=== PATIENT | female | born 1940 | race Caucasian/White ===

== ENCOUNTER 2018-07-22 20:26 | Inpatient (IN) | payer OTHER, MEDICAID ==
[~2018-07-22] VITALS: Ht 157.5 cm; Wt 80.0 kg
[~2018-07-22 20:26] MED LIST: GABA100C14 PO; LISI10TA2 PO; Lidocaine TD; MECL12.5 PO; SIMV40TA3 PO
--- NOTE | 2018-07-22 22:45 | ERD ---
ER Documentation Chief Complaint Chief Complaint RUQ abd pain - hx of gallbladder stones started this afternoon HPI 77-year-old female presenting with right upper quadrant abdominal pain that started last night. Initially it was intermittent, however about 4 hours ago became constant. Associated with nonbloody nonbilious vomiting. The pain is severe, 8 out of 10, radiating to her back. No alleviating or exacerbating factors. She was recently admitted to an outside hospital less than 1 week ago and diagnosed with choledocholithiasis. However by the time they did the MRCP, the stones seem to have passed. She was given an outpatient referral for surgery. Her plan was to see outpatient surgery, but since her pain started again last night, she returns to the ER for evaluation. ROS All systems reviewed and are negative except as per history of present illness. Medications Home Meds Active Scripts Gabapentin* (Gabapentin*) 100 Mg Capsule, 100 MG PO TID, #90 CAP 0 Refills Prov:AUBRIE VALDERRAMA MD 10/26/14 Meclizine Hcl* (Meclizine Hcl*) 12.5 Mg Tab, 12.5 MG PO TID PRN for dizziness, #30 1 Refill Prov:AUBRIE VALDERRAMA MD 10/26/14 [Lidocaine] 1 PATCH PATCH No Conflict Check, 1 PATCH TD DAILY, #30 PATCH 1 Refill Prov:AUBRIE VALDERRAMA MD 10/26/14 Reported Medications Simvastatin (Simvastatin) 40 Mg Tablet, 40 MG PO HS, TAB 10/25/14 Lisinopril* (Lisinopril*) 10 Mg Tablet, 10 MG PO DAILY, TAB 10/25/14 Allergies Allergies: Coded Allergies: No Known Allergy (Unverified , 02/18/12) PMhx/Soc History of Surgery: Yes (Left knee) Anesthesia Reaction: No Hx Neurological Disorder: No Hx Respiratory Disorders: No Hx Cardiac Disorders: Yes (htn) Hx Psychiatric Problems: No Hx Miscellaneous Medical Probl: Yes (HTN, hyperlipid, gallstones) Hx Alcohol Use: No Hx Substance Use: No Hx Tobacco Use: No FmHx Family History: No diabetes Physical Exam Vitals Vital Signs Date Temp Pulse Resp B/P (MAP) Pulse Ox O2 O2 Flow FiO2 Time Delivery Rate 07/22/18 97.8 102 16 115/43 97 Room Air 22:00 (67) 07/22/18 97.8 75 20 160/96 99 20:45 (117) Physical Exam Const: In mild distress due to pain, nontoxic Head: Atraumatic Eyes: Normal Conjunctiva ENT: Normal External Ears, Nose and Mouth. Neck: Full range of motion. No meningismus. Resp: Clear to auscultation bilaterally Cardio: Regular rate and rhythm, no murmurs Abd: Soft, epigastric and right upper quadrant tenderness with guarding, positive Rubio sign. Non distended. Normal bowel sounds Skin: No petechiae or rashes Back: No midline or flank tenderness Ext: No cyanosis, or edema Neur: Awake and alert Psych: Normal Mood and Affect Result Diagram: 07/22/185 07/22/182314 Results 24 hrs Laboratory Tests Test 07/22/18 23:15 White Blood Count 18.1 10^3/ul Red Blood Count 4.40 10^6/ul Hemoglobin 12.5 g/dl Hematocrit 37.9 % Mean Corpuscular Volume 86.1 fl Mean Corpuscular Hemoglobin 28.4 pg Mean Corpuscular Hemoglobin Concent 33.0 g/dl Red Cell Distribution Width 14.2 % Platelet Count 265 10^3/UL Mean Platelet Volume 10.5 fl Immature Granulocytes % 0.400 % Neutrophils % 93.6 % Lymphocytes % 3.9 % Monocytes % 1.6 % Eosinophils % 0.2 % Basophils % 0.3 % Nucleated Red Blood Cells % 0.0 /100WBC Immature Granulocytes # 0.080 10^3/ul Neutrophils # 17.0 10^3/ul Lymphocytes # 0.7 10^3/ul Monocytes # 0.3 10^3/ul Eosinophils # 0.0 10^3/ul Basophils # 0.1 10^3/ul Nucleated Red Blood Cells # 0.0 10^3/ul Sodium Level 133 mmol/L Potassium Level 3.8 mmol/L Chloride Level 97 mmol/L Carbon Dioxide Level 25 mmol/L Anion Gap 11 Blood Urea Nitrogen 13 mg/dl Creatinine 0.65 mg/dl Est Glomerular Filtrat Rate mL/min mL/min Glucose Level 93 mg/dl Calcium Level 9.7 mg/dl Total Bilirubin 0.6 mg/dl Direct Bilirubin 0.10 mg/dl Indirect Bilirubin 0.5 mg/dl Aspartate Amino Transf (AST/SGOT) 79 IU/L Alanine Aminotransferase (ALT/SGPT) 69 IU/L Alkaline Phosphatase 203 IU/L Total Protein 7.9 g/dl Albumin 4.3 g/dl Globulin 3.60 g/dl Albumin/Globulin Ratio 1.19 Lipase 90005 U/L Current Medications Medications Dose Sig/Juan Carlos Start Time Status Last (Trade) Ordered Route PRN Stop Time Admin Dose Reason Admin Fentanyl 50 mcg ONCE ONCE 07/22/18 DC 07/22/18 (Sublimaze) IV 23:00 23:39 07/22/18 23:01 Ondansetron 4 mg ONCE STAT 07/22/18 DC 07/22/18 HCl (Zofran IV 22:46 23:38 Inj) 07/22/18 22:47 Piperacillin 100 ml @ ONCE ONCE 07/23/18 DC Sod/ 200 mls/hr IVPB 00:30 Tazobactam 07/23/18 00:59 Sod Ondansetron 4 mg BRIDGE ORDER 07/23/18 HCl (Zofran PRN IV 01:00 Inj) NAUSEA/VOMITI 07/24/18 00:59 NG 650 mg ER BRIDGE 07/23/18 Acetaminophen PRN PO 01:00 (Tylenol .MILD PAIN 07/24/18 00:59 Tab) 1-3 OR TEMP Procedures/MDM EMERGENT LABS AND DIAGNOSTIC STUDIES: Lab Results above were reviewed and interpreted by me. CBC: Leukocytosis concerning for infection CMP: Elevated alk phos. No evidence of clinically significant electrolyte abnormality, acidosis, renal failure Lipase: significantly elevated, consistent with pancreatitis 12-lead EKG was interpreted by Katherine Aguilar MD: Normal Sinus Rhythm Normal axis Normal intervals No acute ST or T wave changes suggestive of acute ischemia or STEMI. Radiology Results as interpreted by Radiology below were reviewed by SCal hernandez MD: US Gallbladder: IMPRESSION: 1. Hepatomegaly with moderate fatty infiltration. 2. Prominence of the extrahepatic common bile duct, which may be related to prior episodes of biliary colic. 3. Otherwise, normal sonographic findings of the abdomen. No evidence of gallstones or cholecystitis. .Devaughn Hall MD, Date Time Electronically viewed and signed by .Devaughn Hall MD, MD on 07/23/2018 00:52 Initial Nursing notes reviewed. Previous Medical Records requested via the Electronic Health Record. EMERGENCY DEPARTMENT COURSE / MEDICAL DECISION MAKING: Patient is presenting with severe epigastric pain as well as right upper quadra nt pain. Exam is concerning for possible cholecystitis versus pancreatitis. Given her history of choledocholithiasis, this also remains on the differential. Her labs are notable for severely elevated lipase, consistent with acute pancreatitis. Given her recent history of choledocholithiasis, I do believe the pancreatitis is likely secondary to gallstones however no gallstones were seen on the ultrasound done today. Given her elevated white blood cell count, she was treated with Zosyn. Cholangitis is also on the differential. However I doubt sepsis at this time. Patient will be admitted for further workup and management. Dr. Marcelo with general surgery was consulted and agreed to see the patient. Patient will be admitted to Dr. Galeas. Departure Diagnosis: Primary Impression: Pancreatitis Chronicity: acute Pancreatitis type: biliary Acute pancreatitis complication: unspecified Qualified Codes: K85.10 - Biliary acute pancreatitis without necrosis or infection Condition: Serious FAITH AGUILAR MD Jul 22, 2018 22:44
[2018-07-22] MEDS ORDERED: ONDANSETRON 4 MG INJ IV STA (22:46)
[2018-07-22] MEDS ORDERED: FENTAnyl 50 MCG/ML VIAL IV ONE (23:00)
[2018-07-23] MEDS ORDERED: PIPER-TAZO 3.375 GM IV (PMX) 100 ML IVPB ONE (00:30)
[2018-07-23] MEDS ORDERED: ACETAMINOPHEN 325 MG TAB PO PRN (01:00)
[2018-07-23] MEDS ORDERED: ONDANSETRON 4 MG INJ IV PRN ×2 (01:00→02:30)
[2018-07-23] MEDS ORDERED: NACL 0.9% 3 ML SYG IV SCH (02:30)
[2018-07-23] MEDS ORDERED: TRAM50TA PO (02:53)
[2018-07-23] MEDS ORDERED: MAGN400T27 PO (02:53)
[2018-07-23] MEDS ORDERED: SENN-120 PO (02:54)
[2018-07-23] MEDS ORDERED: ONDA4TAB14 PO (02:55)
[2018-07-23] MEDS ORDERED: NAPR125O4 PO (02:56)
[2018-07-23 03:13] VITALS: BP 105/54; PULSE 94; RESP 0
[2018-07-23 03:20] VITALS: Ht 157.5 cm; Wt 80.0 kg
[2018-07-23] MEDS: DEXTROSE 5%-0.45% NACL 1,000 ML IV SCH ×3 (03:53→20:25)
[2018-07-23 08:15] VITALS: BP 91/50; PULSE 89; RESP 17
--- NOTE | 2018-07-23 08:30 | CONS ---
Assessment/Plan Assessment/Plan Assessment/Plan (Daily) Pancreatitis. No evidence of gallstones. MRCP is pending. Further recommendations will be forthcoming and based on the patient's further workup and clinical course. Consultation Date/Type/Reason Admit Date/Time Jul 23, 2018 at 00:37 Date of Consultation: Jul 23, 2018 Type of Consult General surgery Reason for Consultation Biliary pancreatitis Date/Time of Note DATE: 07/23/18 TIME: 08:25 Hx of Present Illness The patient is a 77-year-old female who presented to the emergency room yesterday with epigastric abdominal pain. She was found to have cryptitis with a lipase of 20,154. An abdominal ultrasound showed no gallstones. Of note is the fact that the patient was recently hospitalized at another facility for what was thought to be choledocholithiasis. Apparently an MRCP was performed at that time and was negative. She was discharged uneventfully but returns now with pancreatitis and presumed Hernandez pancreatitis. She has had no fevers chills or jaundice her white blood cell count on admission was 18,100. Alkaline phosphatase is 203 ALT is 114 and AST is 194. Bilirubin is normal Constitutional: no complaints Eyes: no complaints ENT: no complaints Respiratory: no complaints Cardiovascular: no complaints Gastrointestinal: other (As in the HPI) Genitourinary: no complaints Musculoskeletal: no complaints Skin: no complaints Neurologic: no complaints Lymphatic: no complaints Past Medical History Medical History: other (Question of gallstones) Home Meds Reported Medications Naproxen* (Naproxen*) 125 Mg/5 Ml Oral.susp, 500 MG PO BID, ML 07/23/18 Ondansetron (Ondansetron Odt) 4 Mg Tab.rapdis, 4 MG PO Q6H PRN for NAUSEA AND/OR VOMITING, TAB 07/23/18 Sennosides* (Senna Lax*) 8.6 Mg Tablet, 1 TAB PO BID, TAB 07/23/18 Tramadol Hcl* (Ultram*) 50 Mg Tablet, 50 MG PO Q6H PRN for PAIN, TAB 07/23/18 Magnesium Oxide* (Mag-Oxide*) 400 Mg Tablet, 400 MG PO QWED AND FRIDAY, TAB 07/23/18 Simvastatin (Simvastatin) 40 Mg Tablet, 40 MG PO HS, TAB 10/25/14 Lisinopril* (Lisinopril*) 10 Mg Tablet, 10 MG PO BID, TAB 10/25/14 Discontinued Scripts Gabapentin* (Gabapentin*) 100 Mg Capsule, 100 MG PO TID, #90 CAP 0 Refills Prov:AUBRIE VALDERRAMA MD 10/26/14 Meclizine Hcl* (Meclizine Hcl*) 12.5 Mg Tab, 12.5 MG PO TID PRN for dizziness, #30 1 Refill Prov:AUBRIE VALDERRAMA MD 10/26/14 [Lidocaine] 1 PATCH PATCH No Conflict Check, 1 PATCH TD DAILY, #30 PATCH 1 Re fill Prov:AUBRIE VALDERRAMA MD 10/26/14 Medications Current Medications Ondansetron HCl (Zofran Inj) 4 mg BRIDGE ORDER PRN IV NAUSEA/VOMITING; Start 07/23/18 at 01:00; Stop 07/24/18 at 00:59 Acetaminophen (Tylenol Tab) 650 mg ER BRIDGE PRN PO .MILD PAIN 1-3 OR TEMP Last administered on 07/23/18at 02:57; Admin Dose 650 MG; Start 07/23/18 at 01:00; Stop 07/24/18 at 00:59 Dextrose/Sodium Chloride 1,000 ml @ 80 mls/hr [id number] IV Last administered on 07/23/18at 03:53; Admin Dose 80 MLS/HR; Start 07/23/18 at 02:08 IV Flush (NS 3 ml) 3 ml PER PROTOCOL IV ; Start 07/23/18 at 02:30 Ondansetron HCl (Zofran Inj) 4 mg Q6H PRN IV NAUSEA/VOMITING; Start 07/23/18 at 02:30 Morphine Sulfate (morphine) 2 mg Q4H PRN IV .SEVERE PAIN 7-10; Start 07/23/18 at 02:30 Allergies: Coded Allergies: No Known Allergy (Unverified , 02/18/12) Past Surgical History Past Surgical Hx: no surgical history Family History Significant Family History: no pertinent family hx Social History Smoking Status: Never smoker Exam/Review of Systems Exam Vitals Vital Signs Date Temp Pulse Resp B/P (MAP) Pulse Ox O2 O2 Flow FiO2 Time Delivery Rate 07/23/18 98.8 89 17 91/50 (64) 98 08:15 07/23/18 Room Air 03:13 Intake and Output 07/22/18 07/22/18 07/23/18 1515:00 23:00 07:00 IntakeIntake Total 120 ml BalanceBalance 120 ml Constitutional: alert, oriented Psych: no complaints Head: normocephalic Eyes: nl conjunctiva ENMT: nl external ears & nose Neck: supple Respiratory: clear to auscultation Cardiovascular: regular rate and rhythm Gastrointestinal: tender (Slight tenderness in epigastrium without guarding or rebound) Extremities: normal pulses Neurological: STAFF ACCOUNTANT II-XII intact Skin: nl turgor Results Result Diagram: 07/23/18 0539 07/23/18 0539 Results 24hrs Laboratory Tests Test 07/22/18 23:15 07/23/18 05:39 White Blood Count 18.1 #H 19.5 H Red Blood Count 4.40 4.06 L Hemoglobin 12.5 11.5 L Hematocrit 37.9 34.3 L Mean Corpuscular Volume 86.1 84.5 Mean Corpuscular Hemoglobin 28.4 L 28.3 L Mean Corpuscular Hemoglobin Concent 33.0 33.5 Red Cell Distribution Width 14.2 14.5 Platelet Count 265 249 Mean Platelet Volume 10.5 H 11.1 H Immature Granulocytes % 0.400 0.500 H Neutrophils % 93.6 H Lymphocytes % 3.9 L Monocytes % 1.6 Eosinophils % 0.2 Basophils % 0.3 Nucleated Red Blood Cells % 0.0 0.0 Immature Granulocytes # 0.080 H 0.090 H Neutrophils # 17.0 H Lymphocytes # 0.7 L Monocytes # 0.3 Eosinophils # 0.0 Basophils # 0.1 Nucleated Red Blood Cells # 0.0 Sodium Level 133 L 132 L Potassium Level 3.8 3.9 Chloride Level 97 97 Carbon Dioxide Level 25 23 Anion Gap 11 12 Blood Urea Nitrogen 13 18 Creatinine 0.65 1.17 H Est Glomerular Filtrat Rate mL/min Glucose Level 93 126 Calcium Level 9.7 8.8 Total Bilirubin 0.6 1.3 Direct Bilirubin 0.10 0.70 #H Indirect Bilirubin 0.5 0.6 Aspartate Amino Transf (AST/SGOT) 79 H 194 H Alanine Aminotransferase (ALT/SGPT) 69 114 H Alkaline Phosphatase 203 H 175 H Total Protein 7.9 6.3 # Albumin 4.3 3.4 Globulin 3.60 H 2.90 Albumin/Globulin Ratio 1.19 1.17 Lipase 01453 H Segmented Neutrophils % (Manual) 80 H Band Neutrophils % (Manual) 13 H Lymphocytes % (Manual) 2 L Reactive Lymphocytes % (Manual) 1 H Monocytes % (Manual) 4 Neutrophils # (Manual) 16.1 H Band Neutrophils # 2.5 H Lymphocytes (Manual) 0.3 L Reactive Lymphocytes # 0.1 H Monocytes # (Manual) 0.7 Platelet Estimate NORMAL Anisocytosis 1+ Microcytosis 1+ Phosphorus Level 3.1 Magnesium Level 1.6 L Triglycerides Level 70 Cholesterol Level 129 LDL Cholesterol, Calculated 68 HDL Cholesterol 47 Cholesterol/HDL Ratio 2.7 Medications Medication Current Medications Ondansetron HCl (Zofran Inj) 4 mg BRIDGE ORDER PRN IV NAUSEA/VOMITING; Start 07/23/18 at 01:00; Stop 07/24/18 at 00:59 Acetaminophen (Tylenol Tab) 650 mg ER BRIDGE PRN PO .MILD PAIN 1-3 OR TEMP Last administered on 07/23/18at 02:57; Admin Dose 650 MG; Start 07/23/18 at 01:00; Stop 07/24/18 at 00:59 Dextrose/Sodium Chloride 1,000 ml @ 80 mls/hr [id number] IV Last administered on 07/23/18at 03:53; Admin Dose 80 MLS/HR; Start 07/23/18 at 02:08 IV Flush (NS 3 ml) 3 ml PER PROTOCOL IV ; Start 07/23/18 at 02:30 Ondansetron HCl (Zofran Inj) 4 mg Q6H PRN IV NAUSEA/VOMITING; Start 07/23/18 at 02:30 Morphine Sulfate (morphine) 2 mg Q4H PRN IV .SEVERE PAIN 7-10; Start 07/23/18 at 02:30 ESTRELLA SEGOVIA MD Jul 23, 2018 08:30
--- NOTE | 2018-07-23 09:20 | HP ---
Date/Time of Note Date/Time of Note DATE: 07/23/18 TIME: 09:17 Assessment/Plan VTE Prophylaxis Risk score (from Ns)>0 risk: 3 SCD applied (from Ns): Yes SCD contraindicated: low risk/ambulating Pharmacological prophylaxis: NA/contraindicated Pharm contraindication: other (Awaiting surgical eval for possible cholecystitis) Lines/Catheters IV [facility] Peripheral IV Assessment/Plan Assessment/Plan 1. Pancreatitis: No gallstone shown on ultrasound -Keep n.p.o. with IV fluid -GI and surgical consult -Pain management -Check lipid panel 2. Hypertension: IV antihypertensives while n.p.o. 3. Dyslipidemia: Hold statin for now 4. History of thyroid nodule: Per 2015 and DC summary here, patient was supposed to follow-up as outpatient. On my questioning, she did not even know about thyroid nodule. -She can follow this up with her PCP Result Diagram: 07/23/18 0539 07/23/18 0539 Results 24hrs Laboratory Tests Test 07/22/18 23:15 07/23/18 05:39 White Blood Count 18.1 #H 19.5 H Red Blood Count 4.40 4.06 L Hemoglobin 12.5 11.5 L Hematocrit 37.9 34.3 L Mean Corpuscular Volume 86.1 84.5 Mean Corpuscular Hemoglobin 28.4 L 28.3 L Mean Corpuscular Hemoglobin Concent 33.0 33.5 Red Cell Distribution Width 14.2 14.5 Platelet Count 265 249 Mean Platelet Volume 10.5 H 11.1 H Immature Granulocytes % 0.400 0.500 H Neutrophils % 93.6 H Lymphocytes % 3.9 L Monocytes % 1.6 Eosinophils % 0.2 Basophils % 0.3 Nucleated Red Blood Cells % 0.0 0.0 Immature Granulocytes # 0.080 H 0.090 H Neutrophils # 17.0 H Lymphocytes # 0.7 L Monocytes # 0.3 Eosinophils # 0.0 Basophils # 0.1 Nucleated Red Blood Cells # 0.0 Sodium Level 133 L 132 L Potassium Level 3.8 3.9 Chloride Level 97 97 Carbon Dioxide Level 25 23 Anion Gap 11 12 Blood Urea Nitrogen 13 18 Creatinine 0.65 1.17 H Est Glomerular Filtrat Rate mL/min Glucose Level 93 126 Calcium Level 9.7 8.8 Total Bilirubin 0.6 1.3 Direct Bilirubin 0.10 0.70 #H Indirect Bilirubin 0.5 0.6 Aspartate Amino Transf (AST/SGOT) 79 H 194 H Alanine Aminotransferase (ALT/SGPT) 69 114 H Alkaline Phosphatase 203 H 175 H Total Protein 7.9 6.3 # Albumin 4.3 3.4 Globulin 3.60 H 2.90 Albumin/Globulin Ratio 1.19 1.17 Lipase 12857 H Segmented Neutrophils % (Manual) 80 H Band Neutrophils % (Manual) 13 H Lymphocytes % (Manual) 2 L Reactive Lymphocytes % (Manual) 1 H Monocytes % (Manual) 4 Neutrophils # (Manual) 16.1 H Band Neutrophils # 2.5 H Lymphocytes (Manual) 0.3 L Reactive Lymphocytes # 0.1 H Monocytes # (Manual) 0.7 Platelet Estimate NORMAL Anisocytosis 1+ Microcytosis 1+ Phosphorus Level 3.1 Magnesium Level 1.6 L Triglycerides Level 70 Cholesterol Level 129 LDL Cholesterol, Calculated 68 HDL Cholesterol 47 Cholesterol/HDL Ratio 2.7 HPI/ROS Admit Date/Time Admit Date/Time Jul 23, 2018 at 00:37 Hx of Present Illness This is a 77-year-old female with a history of hypertension, dyslipidemia, thyroid nodule who presents the ER complaining of abdominal pain. Pain is mainly localized in the right upper quadrant area and has been going on for the past several days. She stated she was admitted in the hospital in [place] and was discharged 3 days ago. She states she was told that she had gallstones but no surgery was offered at that time. She said she was told the stones would go away. Now she is coming back with a worsening abdominal pain. In the ER she was found to have significantly elevated lipase, around 20,000. Patient denied alcohol abuse. Right upper quadrant ultrasound shows the followin. Hepatomegaly with moderate fatty infiltration. 2. Prominence of the extrahepatic common bile duct, which may be related to prior episodes of biliary colic. 3. Otherwise, normal sonographic findings of the abdomen. No evidence of gallstones or cholecystitis. PMH/Family/Social Past Medical History Medical History: other (See HPI) Medications Current Medications Ondansetron HCl (Zofran Inj) 4 mg BRIDGE ORDER PRN IV NAUSEA/VOMITING; Start 07/23/18 at 01:00; Stop 07/24/18 at 00:59 Acetaminophen (Tylenol Tab) 650 mg ER BRIDGE PRN PO .MILD PAIN 1-3 OR TEMP Last administered on 07/23/18at 02:57; Admin Dose 650 MG; Start 07/23/18 at 01:00; Stop 07/24/18 at 00:59 Dextrose/Sodium Chloride 1,000 ml @ 80 mls/hr [id number] IV Last administered on 07/23/18at 03:53; Admin Dose 80 MLS/HR; Start 07/23/18 at 02:08 IV Flush (NS 3 ml) 3 ml PER PROTOCOL IV ; Start 07/23/18 at 02:30 Ondansetron HCl (Zofran Inj) 4 mg Q6H PRN IV NAUSEA/VOMITING; Start 07/23/18 at 02:30 Morphine Sulfate (morphine) 2 mg Q4H PRN IV .SEVERE PAIN 7-10; Start 07/23/18 at 02:30 Coded Allergies: codeine (Verified Allergy, Mild, 07/23/18) SOB, N/V Past Surgical History Past Surgical Hx: no surgical history Family History Significant Family History: no pertinent family hx Social History Alcohol Use: none Smoking Status: Never smoker Drug Use: none Exam/Review of Systems Vital Signs Vitals Vital Signs Date Temp Pulse Resp B/P (MAP) Pulse Ox O2 O2 Flow FiO2 Time Delivery Rate 07/23/18 98.8 89 17 91/50 (64) 98 08:15 07/23/18 Room Air 03:13 Intake and Output 07/22/18 07/22/18 07/23/18 1515:00 23:00 07:00 IntakeIntake Total 120 ml BalanceBalance 120 ml Exam Constitutional: alert, oriented, well developed Head: normocephalic, atraumatic Eyes: EOMI Respiratory: clear to auscultation, normal air movement Cardiovascular: regular rate and rhythm, nl pulses Gastrointestinal: soft, tender Extremities: normal pulses GRACIELA JOHNSON MD Jul 23, 2018 09:20
[2018-07-23] MEDS: ACETAMINOPHEN 325 MG TAB PO PRN ×2 (12:22→18:09)
--- NOTE | 2018-07-23 12:46 | QN ---
Documentation Comment Patient is still c/o abd pain, enroute to MRI Constitutional: alert, oriented, elderly, anxious Head: atraumatic, normocephalic Neck: non-tender, supple Respiratory: clear to auscultation Cardiovascular: regular rate and rhythm Gastrointestinal: S/ epigastric tenderness / ND / +BS assessment and plan: 37-year-old female who had presented to the emergency room with complaints of right upper quadrant abdominal pain currently admitted and managed as follows 1. acute pancreatitis, gallstone ? 2. Hypertension with tight control at this time 3. Sepsis secondary to #1, present on admission: Improved 4. Hypochromic anemia: Stable, chronic 5. Transaminitis suggestive of gallstone pancreatitis 6. Acute renal insufficiency., Rule out chronic kidney disease. 7. Mild hyponatremia 8. Fatty liver Plan Continue IV fluids, will increase the rate slightly Agree with MRCP, follow-up findings, if there is concern for choledocholithiasis, will need GI consultation, appreciate general surgery review No evidence of cholecystitis at this time, so we will hold off on antibiotics, continue to monitor labs Further interventions per clinical course, plan of care has been discussed with patient and her daughter CALVIN MAZA Jul 23, 2018 12:43
[2018-07-23 14:30] VITALS: BP 117/57; PULSE 73; RESP 17
[2018-07-23 20:00] VITALS: BP 102/55; PULSE 68; RESP 17
[2018-07-23] MEDS: DOCUSATE SODIUM 100 MG CAP PO SCH (21:13)
[2018-07-24] VITALS (7 sets, daily range): BP systolic 141–197; BP diastolic 65–93; PULSE 64–92; RESP 18–20
[2018-07-24] MEDS: ACETAMINOPHEN 325 MG TAB PO PRN ×3 (00:43→16:46)
[2018-07-24] MEDS: DEXTROSE 5%-0.45% NACL 1,000 ML IV SCH ×4 (00:43→23:38)
[2018-07-24] MEDS: PANTOPRAZOLE 40 MG INJ IV SCH (05:07)
[2018-07-24] MEDS: morphine 2 MG INJ IV PRN (07:59)
[2018-07-24] MEDS: DOCUSATE SODIUM 100 MG CAP PO SCH ×3 (08:02→20:29)
[2018-07-24] MEDS: ENOXAPARIN 40 MG/0.4 ML SYG SC SCH (09:05)
--- NOTE | 2018-07-24 09:18 | PN ---
Date/Time of Note Date/Time of Note DATE: 07/24/18 TIME: 09:13 Assessment/Plan VTE Prophylaxis Risk score (from Nsg)>0 risk: 4 SCD applied (from Nsg): Yes Pharmacological prophylaxis: LMWH Lines/Catheters IV Catheter Type (from Nrsg): Peripheral IV Assessment/Plan Hospital Course Patient is still c/o abd pain, Constitutional: alert, oriented, elderly, anxious Head: atraumatic, normocephalic Neck: non-tender, supple Respiratory: clear to auscultation Cardiovascular: regular rate and rhythm Gastrointestinal: S/ epigastric tenderness / ND / +BS assessment and plan: 37-year-old female who had presented to the emergency room with complaints of right upper quadrant abdominal pain currently admitted and managed as follows 1. acute pancreatitis, gallstone 2. Cholelithiasis with choledocholithiasis 3. Hypertension 4. Sepsis secondary to #1, present on admission: Improved 5. Hypochromic anemia: Stable, chronic 6. Transaminitis 2/2 gallstone pancreatitis 7 Acute renal insufficiency., Rule out chronic kidney disease. 8. Mild hyponatremia 9. Fatty liver Plan Continue IV fluids, NPO and pain meds GI consult for ERCP Continue supportive care Further interventions per clinical course, plan of care has been discussed with patient and her daughter Result Diagram: 07/24/18 0636 07/24/18 0636 Results 24hrs Laboratory Tests Test 07/24/18 06:36 White Blood Count 17.0 H Red Blood Count 3.72 L Hemoglobin 10.4 L Hematocrit 31.9 L Mean Corpuscular Volume 85.8 Mean Corpuscular Hemoglobin 28.0 L Mean Corpuscular Hemoglobin Concent 32.6 Red Cell Distribution Width 15.1 H Platelet Count 233 Mean Platelet Volume 11.2 H Immature Granulocytes % 0.400 Neutrophils % 80.9 H Lymphocytes % 13.2 L Monocytes % 4.2 Eosinophils % 1.1 Basophils % 0.2 Nucleated Red Blood Cells % 0.0 Immature Granulocytes # 0.070 H Neutrophils # 13.7 H Lymphocytes # 2.2 Monocytes # 0.7 Eosinophils # 0.2 Basophils # 0.0 Nucleated Red Blood Cells # 0.0 Sodium Level 128 L Potassium Level 4.1 Chloride Level 95 L Carbon Dioxide Level 25 Anion Gap 8 Blood Urea Nitrogen 28 H Creatinine 1.86 H Est Glomerular Filtrat Rate mL/min Glucose Level 118 Calcium Level 8.7 Phosphorus Level 3.9 Magnesium Level 1.7 Amylase Level 646 H Lipase 8227 H Exam/Review of Systems Exam Vitals Vital Signs Date Temp Pulse Resp B/P (MAP) Pulse Ox O2 O2 Flow FiO2 Time Delivery Rate 07/24/18 97.9 66 18 197/90 98 Room Air 08:02 (125) Intake and Output 07/23/18 07/23/18 07/24/18 1515:00 23:00 07:00 IntakeIntake Total 320 ml 710 ml 1900 ml BalanceBalance 320 ml 710 ml 1900 ml Results Results 24hrs Laboratory Tests Test 07/24/18 06:36 White Blood Count 17.0 H Red Blood Count 3.72 L Hemoglobin 10.4 L Hematocrit 31.9 L Mean Corpuscular Volume 85.8 Mean Corpuscular Hemoglobin 28.0 L Mean Corpuscular Hemoglobin Concent 32.6 Red Cell Distribution Width 15.1 H Platelet Count 233 Mean Platelet Volume 11.2 H Immature Granulocytes % 0.400 Neutrophils % 80.9 H Lymphocytes % 13.2 L Monocytes % 4.2 Eosinophils % 1.1 Basophils % 0.2 Nucleated Red Blood Cells % 0.0 Immature Granulocytes # 0.070 H Neutrophils # 13.7 H Lymphocytes # 2.2 Monocytes # 0.7 Eosinophils # 0.2 Basophils # 0.0 Nucleated Red Blood Cells # 0.0 Sodium Level 128 L Potassium Level 4.1 Chloride Level 95 L Carbon Dioxide Level 25 Anion Gap 8 Blood Urea Nitrogen 28 H Creatinine 1.86 H Est Glomerular Filtrat Rate mL/min Glucose Level 118 Calcium Level 8.7 Phosphorus Level 3.9 Magnesium Level 1.7 Amylase Level 646 H Lipase 8227 H Imaging Imaging PROCEDURE: MRI Abdomen without contrast CLINICAL INDICATION: Right upper quadrant abdominal pain TECHNIQUE: Multiplanar multisequence magnetic resonance imaging examination of the abdomen was performed without intravenous gadolinium contrast according to MRCP protocol. COMPARISON: Abdominal sonogram dated 07/22/2018. FINDINGS: The liver is normal in size. There is no liver surface nodularity. Gallbladder has normal signal intensity. There is no intrahepatic biliary ductal dilatation. Common bile duct is mildly dilated measuring up to 9 mm in diameter. There is an 8 mm filling defect in distal common bile duct near the ampulla. Pancreatic duct is not dilated. There is mild peripancreatic edema. Pancreas is mildly atrophic. There is trace left perinephric fluid. Spleen, kidneys, and adrenal glands are otherwise within normal limits. There is trace perihepatic and perisplenic fluid. There is no abdominal aortic aneurysm. There is no mesenteric or retroperitoneal lymphadenopathy. Visualized bowel loops are unremarkable. There is a 1.8 cm T2 hyperintense lesion abutting the right lateral wall of the left atrium, likely pericardial cyst. There are d egenerative changes of the lumbar spine. IMPRESSION: 1. Mild extrahepatic biliary ductal dilatation with 8 mm filling defect in distal CBD near the ampulla, could represent ductal stone. Differential diagnosis includes small obstructing mass. Further evaluation is limited due to lack of intravenous contrast. Recommend correlation with ERCP. 2. No evidence of cholelithiasis or acute cholecystitis. 3. No intrahepatic biliary ductal dilatation. 4. Mild peripancreatic edema, recommend correlation with laboratory data to exclude acute pancreatitis. 5. Trace left perinephric fluid. 6. Trace perihepatic and perisplenic fluid. RPTAT:AAEE Physician Mima Date Time Electronically viewed and signed by Physician Mima on 07/23/2018 14:37 RM/ Medications Medication Current Medications Dextrose/Sodium Chloride 1,000 ml @ 150 mls/hr Q6H40M IV Last administered on 07/24/18at 08:01; Admin Dose 150 MLS/HR; Start 07/23/18 at 02:08 IV Flush (NS 3 ml) 3 ml PER PROTOCOL IV ; Start 07/23/18 at 02:30 Ondansetron HCl (Zofran Inj) 4 mg Q6H PRN IV NAUSEA/VOMITING; Start 07/23/18 at 02:30 Morphine Sulfate (morphine) 2 mg Q4H PRN IV .SEVERE PAIN 7-10 Last administered on 07/24/18at 07:59; Admin Dose 2 MG; Start 07/23/18 at 02:30 Acetaminophen (Tylenol Tab) 650 mg Q6H PRN PO MILD PAIN(1-3)OR ELEVATED TEMP Last administered on 07/24/18at 05:09; Admin Dose 650 MG; Start 07/23/18 at 12:30 Enoxaparin Sodium (Lovenox) 40 mg DAILY SC Last administered on 07/24/18at 09:05; Admin Dose 40 MG; Start 07/24/18 at 09:00 Docusate Sodium (Colace) 100 mg BID PO Last administered on 07/23/18at 21:13; Admin Dose 100 MG; Start 07/23/18 at 21:00 Pantoprazole (Protonix Iv) 40 mg DAILY@06 IV Last administered on 07/24/18 05:07; Admin Dose 40 MG; Start 07/24/18 at 06:00 CALVIN MAZA Jul 24, 2018 09:17
[2018-07-24] MEDS: CEFTRIAXONE 1 GM/50 ML (PMX) 50 ML IVPB SCH (10:52)
[2018-07-24] MEDS: SENNA TAB PO SCH ×2 (10:55→20:29)
[2018-07-24] MEDS: METOPROLOL 25 MG TAB PO SCH ×2 (10:55→20:30)
[2018-07-24] MEDS: HYDROmorphONE 0.5 MG/0.5 ML SYG IV PRN ×2 (12:30→20:30)
--- NOTE | 2018-07-24 13:30 | CONS ---
Assessment/Plan Assessment/Plan Assessment/Plan (Daily) Assessment: Gallstone pancreatitis Rule out choledocholithiasis -filling defect in distal common bile duct on MRCP Transaminitis Leukocytosis Epigastric pain Hypertension Hyperlipidemia Arthritis Plan: N.p.o. Continue IV fluids Pain management ERCP on ce the pancreatitis is better Monitor Lipase Patient seen in collaboration with Dr. Aguilar Consultation Date/Type/Reason Admit Date/Time Jul 23, 2018 at 00:37 Date of Consultation: Jul 24, 2018 Type of Consult GI Reason for Consultation Gallstone pancreatitis Date/Time of Note DATE: 07/24/18 TIME: 13:20 Hx of Present Illness This is a 77-year-old female with history of fatty liver, hypertension, dyslipidemia and arthritis who was admitted for upper abdominal pain. Patient states she was previously admitted to a different hospital and sent home after 3 days of stay. Her symptoms came back 4 days ago which prompted her to come to the hospital. Patient complaining of epigastric pain. She denies nausea, vomiting, hematemesis, hematochezia, fever or diarrhea. Denies any history of EGD or colonoscopy. Patient denies smoking, drinking or using illicit drugs. Imaging shows filling defect in distal common bile duct suggestive of stone. No visualized gallstones. White blood count and LFTs are elevated. Direct bilirubin is slightly elevated. Lipase on admission was 20,154, currently 8227. Patient was started on IV fluids at 150 cc/h. Kept n.p.o. The plan is to perform ERCP once the pancreatitis improves. Tentatively schedule ERCP on Friday. Discussed the plan and procedure with risks and benefits with the patient. Patient is agreeable to the procedure. Gastrointestinal: no complaints (See HPI) Past Medical History Hypertension, arthritis, dyslipidemia, fatty liver Medical History: other (See HPI) Home Meds Reported Medications Naproxen* (Naproxen*) 125 Mg/5 Ml Oral.susp, 500 MG PO BID, ML 07/23/18 Sennosides* (Senna Lax*) 8.6 Mg Tablet, 1 TAB PO BID, TAB 07/23/18 Tramadol Hcl* (Ultram*) 50 Mg Tablet, 50 MG PO Q6H PRN for PAIN, TAB 07/23/18 Magnesium Oxide* (Mag-Oxide*) 400 Mg Tablet, 400 MG PO QWED AND FRIDAY, TAB 07/23/18 Simvastatin (Simvastatin) 40 Mg Tablet, 40 MG PO HS, TAB 10/25/14 Lisinopril* (Lisinopril*) 10 Mg Tablet, 10 MG PO BID, TAB 10/25/14 Discontinued Reported Medications Ondansetron (Ondansetron Odt) 4 Mg Tab.rapdis, 4 MG PO Q6H PRN for NAUSEA AND/OR VOMITING, TAB 07/23/18 Discontinued Scripts Gabapentin* (Gabapentin*) 100 Mg Capsule, 100 MG PO TID, #90 CAP 0 Refills Prov:AUBRIE VALDERRAMA MD 10/26/14 Meclizine Hcl* (Meclizine Hcl*) 12.5 Mg Tab, 12.5 MG PO TID PRN for dizziness, #30 1 Refill Prov:AUBRIE VALDERRAMA MD 10/26/14 [Lidocaine] 1 PATCH PATCH No Conflict Check, 1 PATCH TD DAILY, #30 PATCH 1 Refill Prov:AUBRIE VALDERRAMA MD 10/26/14 Medications Current Medications Dextrose/Sodium Chloride 1,000 ml @ 150 mls/hr Q6H40M IV Last administered on 07/24/18at 08:01; Admin Dose 150 MLS/HR; Start 07/23/18 at 02:08 IV Flush (NS 3 ml) 3 ml PER PROTOCOL IV ; Start 07/23/18 at 02:30 Ondansetron HCl (Zofran Inj) 4 mg Q6H PRN IV NAUSEA/VOMITING; Start 07/23/18 at 02:30 Morphine Sulfate (morphine) 2 mg Q4H PRN IV .SEVERE PAIN 7-10 Last administered on 07/24/18at 07:59; Admin Dose 2 MG; Start 07/23/18 at 02:30 Acetaminophen (Tylenol Tab) 650 mg Q6H PRN PO MILD PAIN(1-3)OR ELEVATED TEMP Last administered on 07/24/18at 05:09; Admin Dose 650 MG; Start 07/23/18 at 12:30 Enoxaparin Sodium (Lovenox) 40 mg DAILY SC Last administered on 07/24/18at 09:05; Admin Dose 40 MG; Start 07/24/18 at 09:00 Docusate Sodium (Colace) 100 mg BID PO Last administered on 07/24/18at 10:56; Admin Dose 100 MG; Start 07/23/18 at 21:00 Pantoprazole (Protonix Iv) 40 mg DAILY@06 IV Last administered on 07/24/18at 05:07; Admin Dose 40 MG; Start 07/24/18 at 06:00 Senna (Senokot) 1 tab BID PO Last administered on 07/24/18at 10:55; Admin Dose 1 TAB; Start 07/24/18 at 09:30 Metoprolol Tartrate (Lopressor) 25 mg BID PO Last administered on 07/24/18at 10:55; Admin Dose 25 MG; Start 07/24/18 at 09:30 Hydralazine HCl (Apresoline) 10 mg Q6H PRN IV sbp>160mmhg; Start 07/24/18 at 09:30 Ceftriaxone Sodium 50 ml @ 100 mls/hr Q24H IVPB Last administered on 07/24/18at 10:52; Admin Dose 100 MLS/HR; Start 07/24/18 at 10:00 Hydromorphone HCl (Dilaudid) 0.5 mg Q3H PRN IV SEVERE PAIN LEVEL 7-10 Last administered on 07/24/18at 12:30; Admin Dose 0.5 MG; Start 07/24/18 at 09:30 Atorvastatin Calcium (Lipitor) 20 mg DAILY@21 PO ; Start 07/24/18 at 21:00 Allergies: Coded Allergies: codeine (Verified Allergy, Mild, 07/23/18) SOB, N/V Past Surgical History Past Surgical Hx: no surgical history Social History Alcohol Use: none Smoking Status: Never smoker Drug Use: none Exam/Review of Systems Exam Vitals Vital Signs Date Temp Pulse Resp B/P (MAP) Pulse Ox O2 O2 Flow FiO2 Time Delivery Rate 07/24/18 97.9 66 18 197/90 98 Room Air 08:02 (125) Intake and Output 07/23/18 07/23/18 07/24/18 1515:00 23:00 07:00 IntakeIntake Total 320 ml 710 ml 1900 ml BalanceBalance 320 ml 710 ml 1900 ml Exam PHYSICAL EXAMINATION: GENERAL: Well developed, well nourished, obese, alert & oriented x 3, in no acute distress SKIN: No lesions, no stigmata chronic liver disease, no evidence of bleeding diathesis LYMPHATIC: No palpable lymphadenopathy. HEAD: Normocephalic, atraumatic, no tenderness. EYES: Pupils equal reactive to light and accommodation, full extraocular movements, sclera clear, non-icteric, no discharge. EARS/NOSE AND THROAT: Ears normal, nose normal, oropharynx normal, oral membranes well hydrated without lesions. NECK: Supple, no masses, thyroid normal, JVP within normal limits, carotids normal without bruits. CHEST: Inspection within normal limits. CARDIOVASCULAR: Heart: Regular rate and rhythm, no murmurs, gallops or rubs. Peripheral pulses present within normal limits, no cyanosis, clubbing or edemas. No pulsatile abdominal mass RESPIRATORY: Lungs clear to auscultation and percussion, no wheezing, no rubs GASTROINTESTINAL AND LIVER: Abdomen: Soft, epigastric tenderness, non-distended, no hernias, no masses, no organomegaly, no ascites, no guarding, no rebound tenderness, normoactive bowel sounds. Rectal: Deferred. GENITOURINARY: Female genitalia within normal limits. EXTREMITIES: No cyanosis, clubbing or edema. Results Result Diagram: 07/24/18 0636 07/24/18 0636 Results 24hrs Laboratory Tests Test 07/24/18 06:36 White Blood Count 17.0 H Red Blood Count 3.72 L Hemoglobin 10.4 L Hematocrit 31.9 L Mean Corpuscular Volume 85.8 Mean Corpuscular Hemoglobin 28.0 L Mean Corpuscular Hemoglobin Concent 32.6 Red Cell Distribution Width 15.1 H Platelet Count 233 Mean Platelet Volume 11.2 H Immature Granulocytes % 0.400 Neutrophils % 80.9 H Lymphocytes % 13.2 L Monocytes % 4.2 Eosinophils % 1.1 Basophils % 0.2 Nucleated Red Blood Cells % 0.0 Immature Granulocytes # 0.070 H Neutrophils # 13.7 H Lymphocytes # 2.2 Monocytes # 0.7 Eosinophils # 0.2 Basophils # 0.0 Nucleated Red Blood Cells # 0.0 Sodium Level 128 L Potassium Level 4.1 Chloride Level 95 L Carbon Dioxide Level 25 Anion Gap 8 Blood Urea Nitrogen 28 H Creatinine 1.86 H Est Glomerular Filtrat Rate mL/min Glucose Level 118 Calcium Level 8.7 Phosphorus Level 3.9 Magnesium Level 1.7 Amylase Level 646 H Lipase 8227 H Medications Medication Current Medications Dextrose/Sodium Chloride 1,000 ml @ 150 mls/hr Q6H40M IV Last administered on 07/24/18 08:01; Admin Dose 150 MLS/HR; Start 07/23/18 at 02:08 IV Flush (NS 3 ml) 3 ml PER PROTOCOL IV ; Start 07/23/18 at 02:30 Ondansetron HCl (Zofran Inj) 4 mg Q6H PRN IV NAUSEA/VOMITING; Start 07/23/18 at 02:30 Morphine Sulfate (morphine) 2 mg Q4H PRN IV .SEVERE PAIN 7-10 Last administered on 07/24/18 07:59; Admin Dose 2 MG; Start 07/23/18 at 02:30 Acetaminophen (Tylenol Tab) 650 mg Q6H PRN PO MILD PAIN(1-3)OR ELEVATED TEMP Last administered on 07/24/18 05:09; Admin Dose 650 MG; Start 07/23/18 at 12:30 Enoxaparin Sodium (Lovenox) 40 mg DAILY SC Last administered on 07/24/18 09:05; Admin Dose 40 MG; Start 07/24/18 at 09:00 Docusate Sodium (Colace) 100 mg BID PO Last administered on 07/24/18 10:56; Admin Dose 100 MG; Start 07/23/18 at 21:00 Pantoprazole (Protonix Iv) 40 mg DAILY@06 IV Last administered on 07/24/18 05:07; Admin Dose 40 MG; Start 07/24/18 at 06:00 Senna (Senokot) 1 tab BID PO Last administered on 07/24/18 10:55; Admin Dose 1 TAB; Start 07/24/18 at 09:30 Metoprolol Tartrate (Lopressor) 25 mg BID PO Last administered on 07/24/18 10:55; Admin Dose 25 MG; Start 07/24/18 at 09:30 Hydralazine HCl (Apresoline) 10 mg Q6H PRN IV sbp>160mmhg; Start 07/24/18 at 09:30 Ceftriaxone Sodium 50 ml @ 100 mls/hr Q24H IVPB Last administered on 07/24/18 10:52; Admin Dose 100 MLS/HR; Start 07/24/18 at 10:00 Hydromorphone HCl (Dilaudid) 0.5 mg Q3H PRN IV SEVERE PAIN LEVEL 7-10 Last administered on 4/12/19at 12:30; Admin Dose 0.5 MG; Start 07/24/18 at 09:30 Atorvastatin Calcium (Lipitor) 20 mg DAILY@21 PO ; Start 07/24/18 at 21:00 AMIRA DE LA ROSA NP Jul 24, 2018 13:30
--- NOTE | 2018-07-24 18:24 | QN ---
Documentation Comment Afebrile throughout Still with low-grade leukocytosis No evidence of cholelithiasis or cholecystitis Symptomatically improved Awaiting ERCP ESTRELLA SEGOVIA MD Jul 24, 2018 18:24
[2018-07-24] MEDS ORDERED: NON-FORMULARY/PATIENT OWN MED (Simvastatin 40 MG) PO SCH (21:00)
[2018-07-24] MEDS ORDERED: ATORVASTATIN 20 MG TAB PO SCH (21:00)
[2018-07-24] MEDS: hydrALAzine 20 MG INJ IV PRN (21:39)
[2018-07-24] MEDS ORDERED: DIPHENHYDRAMINE 50 MG INJ IV ONE (22:30)
[2018-07-24] MEDS ORDERED: hydrALAzine 20 MG INJ IV ONE (23:00)
[2018-07-24] MEDS: ZOLPIDEM 5 MG TAB PO PRN (23:47)
[2018-07-25] VITALS (13 sets, daily range): BP systolic 136–190; BP diastolic 62–89; PULSE 66–89; RESP 18–19
[2018-07-25] MEDS ORDERED: ZOLPIDEM 5 MG TAB PO ONE
[2018-07-25] MEDS: PANTOPRAZOLE 40 MG INJ IV SCH (05:01)
[2018-07-25] MEDS: ACETAMINOPHEN 325 MG TAB PO PRN ×2 (05:01→13:33)
[2018-07-25] MEDS: DEXTROSE 5%-0.45% NACL 1,000 ML IV SCH ×3 (05:02→18:32)
[2018-07-25] MEDS: SENNA TAB PO SCH ×2 (09:00→20:34)
[2018-07-25] MEDS: DOCUSATE SODIUM 100 MG CAP PO SCH ×2 (09:00→20:33)
[2018-07-25] MEDS: METOPROLOL 25 MG TAB PO SCH ×2 (09:19→20:34)
[2018-07-25] MEDS: ENOXAPARIN 40 MG/0.4 ML SYG SC SCH (09:20)
[2018-07-25] MEDS: LISINOPRIL 10 MG TAB PO SCH ×2 (09:31→20:34)
[2018-07-25] MEDS: CEFTRIAXONE 1 GM/50 ML (PMX) 50 ML IVPB SCH (09:31)
--- NOTE | 2018-07-25 10:01 | PN ---
ALISE AGUILAR V. ZANA 07/25/18 1001: Date/Time of Note Date/Time of Note DATE: 07/25/18 TIME: 10:01 Assessment/Plan VTE Pro[place]axis [place] [facility] [place]: 5 [place]CD applied [place] [facility] [place] Yes Pharmacological prophylaxis: NA/contraindicated Pharm contraindication: low risk/ambulating Lines/Catheters IV [facility] Type (from [facility]): Peripheral IV Assessment/Plan Hospital Course SUBJECTIVE: Very pleasant female, lying in bed, with improved abdominal pain. No nausea or vomiting reported. OBJECTIVE: Vital signs-see below PHYSICAL EXAM: Constitutional: Well-developed, well-nourished elderly female, not in acute distress. HEENT: Head atraumatic and normocephalic. Eyes: Extraocular muscles intact. Anicteric sclerae. Pupils equal bilaterally, reactive to light. NECK: Supple without lymph node. CHEST: Clear and good breath sounds equally. No wheezing. No rhonchi. HEART: S1, S2. Regular rate and rhythm. ABDOMEN: Mild tenderness to the umbilical area which is improved significantly. Otherwise abdomen soft with no rebound tenderness. Bowel sounds were present. EXTREMITIES: Full range of motion in all the extremities. No cyanosis, clubbing or edema. NEUROLOGIC: Alert and oriented x3. No focal deficit. No sensory deficit. PSYCHOSOCIAL: In a good mood. No signs of depression. INTEGUMENTARY: Moist mucous membranes. Good skin turgor, intact. ASSESSMENT AND PLAN:37-year-old female with a history of hypertension, anemia, hepatic steatosis, admitted with periumbilical/right-sided abdominal pain, found to have acute biliary pancreatitis... 1. Acute biliary pancreatitis. -Improving gradually. -Okay for n.p.o. except medications, ice chips and sips of water. -Repeat lipase in a.m. and start clear diet if stable. -Plan for ERCP on Friday. 2. Biliary ductal dilatation, possible choledocholithiasis. -Again, plan is ERCP on Friday. 3. Essential hypertension. -Needs control. -We will resume lisinopril. 4. Hyperlipidemia. -Continue statin. 5. Questionable adnexal mass, incidental finding -Obtain a CT with and without contrast of pelvis for further look. 6. Leukocytosis, likely reactive. -There is no evidence of fever. However, we will continue empiric antimicrobial unless cultures to rule out infectious source. 6. Anemia, likely chronic. -Stable H&H. Continue to monitor. 7. Obesity with a BMI 32.3. -Lifestyle changes advised. I will also obtain A1c DVT prophylaxis: SCDs PUD prophylaxis: Protonix. Disposition: Continue current management. Closely monitor lipase levels and start diet in the morning if patient remains stable. Plan is ERCP on Friday. Follow-up CT findings. Patient was seen in collaboration with Dr. Billings. So 62 right she can have n.p.o. except medications and n.p.o. except sips of water and ice last Result Diagram: 07/25/1852807/25/18 05 Results 24hrs Laboratory Tests Test 07/24/18 17:36 07/25/18 05:29 Urine Color YELLOW Urine Clarity CLEAR Urine pH 6.0 Urine Specific [place] 1.008 Urine Ketones NEGATIVE Urine Nitrite NEGATIVE Urine Bilirubin NEGATIVE Urine Urobilinogen NEGATIVE Urine Leukocyte Esterase NEGATIVE Urine Hemoglobin NEGATIVE Urine Random Sodium 78 Urine Glucose NEGATIVE Urine Total Protein NEGATIVE White Blood Count 13.8 H Red Blood Count 4.15 L Hemoglobin 11.7 L Hematocrit 34.9 L Mean Corpuscular Volume 84.1 Mean Corpuscular Hemoglobin 28.2 L Mean Corpuscular Hemoglobin Concent 33.5 Red Cell Distribution Width 14.9 H Platelet Count 267 Mean Platelet Volume 11.1 H Immature Granulocytes % 0.400 Neutrophils % 87.3 H Lymphocytes % 9.1 L Monocytes % 3.0 Eosinophils % 0.1 Basophils % 0.1 Nucleated Red Blood Cells % 0.0 Immature Granulocytes # 0.050 H Neutrophils # 12.0 H Lymphocytes # 1.3 Monocytes # 0.4 Eosinophils # 0.0 Basophils # 0.0 Nucleated Red Blood Cells # 0.0 Sodium Level 135 Potassium Level 3.7 Chloride Level 102 Carbon Dioxide Level 25 Anion Gap 8 Blood Urea Nitrogen 12 # Creatinine 0.72 # Est Glomerular Filtrat Rate mL/min Glucose Level 150 Calcium Level 9.5 Phosphorus Level 3.1 Magnesium Level 1.9 Total Bilirubin 0.5 Direct Bilirubin 0.00 # Indirect Bilirubin 0.5 Aspartate Amino Transf (AST/SGOT) 64 H Alanine Aminotransferase (ALT/SGPT) 65 Alkaline Phosphatase 222 H Total Protein 7.4 # Albumin 3.9 Globulin 3.50 H Albumin/Globulin Ratio 1.11 Amylase Level 145 #H Lipase 2759 H Exam/Review of Systems Exam Vitals Vital Signs Date Temp Pulse Resp B/P (MAP) Pulse Ox O2 O2 Flow FiO2 Time Delivery Rate 07/25/18 98.1 74 18 142/68 98 Room Air 08:25 (92) Intake and Output 07/24/18 07/24/18 07/25/18 1515:00 23:00 07:00 IntakeIntake Total 300 ml 1200 ml 1850 ml OutputOutput Total 1000 ml 500 ml BalanceBalance -700 ml 700 ml 1850 ml Results Result Diagram: 07/25/18 0529 07/25/18 0529 Results 24hrs Laboratory Tests Test 07/24/18 17:36 07/25/18 05:29 Urine Color YELLOW Urine Clarity CLEAR Urine pH 6.0 Urine Specific [place] 1.008 Urine Ketones NEGATIVE Urine Nitrite NEGATIVE Urine Bilirubin NEGATIVE Urine Urobilinogen NEGATIVE Urine Leukocyte Esterase NEGATIVE Urine Hemoglobin NEGATIVE Urine Random Sodium 78 Urine Glucose NEGATIVE Urine Total Protein NEGATIVE White Blood Count 13.8 H Red Blood Count 4.15 L Hemoglobin 11.7 L Hematocrit 34.9 L Mean Corpuscular Volume 84.1 Mean Corpuscular Hemoglobin 28.2 L Mean Corpuscular Hemoglobin Concent 33.5 Red Cell Distribution Width 14.9 H Platelet Count 267 Mean Platelet Volume 11.1 H Immature Granulocytes % 0.400 Neutrophils % 87.3 H Lymphocytes % 9.1 L Monocytes % 3.0 Eosinophils % 0.1 Basophils % 0.1 Nucleated Red Blood Cells % 0.0 Immature Granulocytes # 0.050 H Neutrophils # 12.0 H Lymphocytes # 1.3 Monocytes # 0.4 Eosinophils # 0.0 Basophils # 0.0 Nucleated Red Blood Cells # 0.0 Sodium Level 135 Potassium Level 3.7 Chloride Level 102 Carbon Dioxide Level 25 Anion Gap 8 Blood Urea Nitrogen 12 # Creatinine 0.72 # Est Glomerular Filtrat Rate mL/min Glucose Level 150 Calcium Level 9.5 Phosphorus Level 3.1 Magnesium Level 1.9 Total Bilirubin 0.5 Direct Bilirubin 0.00 # Indirect Bilirubin 0.5 Aspartate Amino Transf (AST/SGOT) 64 H Alanine Aminotransferase (ALT/SGPT) 65 Alkaline Phosphatase 222 H Total Protein 7.4 # Albumin 3.9 Globulin 3.50 H Albumin/Globulin Ratio 1.11 Amylase Level 145 #H Lipase 2759 H Medications Medication Current Medications Dextrose/Sodium Chloride 1,000 ml @ 150 mls/hr Q6H40M IV Last administered on 07/25/18 05:02; Admin Dose 150 MLS/HR; Start 07/23/18 at 02:08 IV Flush (NS 3 ml) 3 ml PER PROTOCOL IV ; Start 07/23/18 at 02:30 Ondansetron HCl (Zofran Inj) 4 mg Q6H PRN IV NAUSEA/VOMITING; Start 07/23/18 at 02:30 Morphine Sulfate (morphine) 2 mg Q4H PRN IV .SEVERE PAIN 7-10 Last administered on 07/24/18 07:59; Admin Dose 2 MG; Start 07/23/18 at 02:30 Acetaminophen (Tylenol Tab) 650 mg Q6H PRN PO MILD PAIN(1-3)OR ELEVATED TEMP Last administered on 07/25/18 05:01; Admin Dose 650 MG; Start 07/23/18 at 12:30 Enoxaparin Sodium (Lovenox) 40 mg DAILY SC Last administered on 07/25/18 09:20; Admin Dose 40 MG; Start 07/24/18 at 09:00 Docusate Sodium (Colace) 100 mg BID PO Last administered on 07/24/18 20:29; Ad min Dose 100 MG; Start 07/23/18 at 21:00 Pantoprazole (Protonix Iv) 40 mg DAILY@06 IV Last administered on 07/25/18 05:01; Admin Dose 40 MG; Start 07/24/18 at 06:00 Senna (Senokot) 1 tab BID PO Last administered on 07/24/18 20:29; Admin Dose 1 TAB; Start 07/24/18 at 09:30 Metoprolol Tartrate (Lopressor) 25 mg BID PO Last administered on 07/25/18 09:19; Admin Dose 25 MG; Start 07/24/18 at 09:30 Hydralazine HCl (Apresoline) 10 mg Q6H PRN IV sbp>160mmhg Last administered on 07/24/18 21:39; Admin Dose 10 MG; Start 07/24/18 at 09:30 Ceftriaxone Sodium 50 ml @ 100 mls/hr Q24H IVPB Last administered on 07/25/18 09:31; Admin Dose 100 MLS/HR; Start 07/24/18 at 10:00 Hydromorphone HCl (Dilaudid) 0.5 mg Q3H PRN IV SEVERE PAIN LEVEL 7-10 Last administered on 07/24/18 20:30; Admin Dose 0.5 MG; Start 07/24/18 at 09:30 Atorvastatin Calcium (Lipitor) 20 mg DAILY@21 PO Last administered on 07/24/18 20:30; Admin Dose 20 MG; Start 07/24/18 at 21:00 Zolpidem Tartrate (Ambien) 5 mg HS PRN PO INSOMNIA Last administered on 07/24/18at 23:47; Admin Dose 5 MG; Start 07/24/18 at 17:00 Lisinopril (Zestril) 10 mg BID PO Last administered on 07/25/18 09:31; Admin Dose 10 MG; Start 07/25/18 at 09:30 DENG BILLINGS 07/26/18 0746: Assessment/Plan Assessment/Plan Hospital Course Patient developed chest pain later in the day. Stat EKG, chest x-ray, troponin was drawn, troponin was mildly elevated, chest pain had subsided, patient was transferred to telemetry, will rule out ACS, continue to trend troponins, echo, statin, aspirin Result Diagram: 07/25/18 0529 07/25/18 0529 ALISE AGUILAR NP Jul 25, 2018 10:01 DENG BILLINGS Jul 26, 2018 07:46
[2018-07-25] MEDS ORDERED: IOHEXOL 300MG/ML 150 ML BTL ONE (11:46)
[2018-07-25] MEDS ORDERED: SOD CHLORIDE 0.9% 100 ML ONE (11:46)
--- NOTE | 2018-07-25 14:16 | QN ---
Documentation Comment Continued symptomatic improvement. Lipase down to 2759 Awaiting ERCP tomorrow ESTRELLA SEGOVIA MD Jul 25, 2018 14:16
[2018-07-25] MEDS: hydrALAzine 20 MG INJ IV PRN ×2 (14:27→19:05)
--- NOTE | 2018-07-25 16:56 | PN ---
Date/Time of Note Date/Time of Note DATE: 07/25/18 TIME: 16:41 Assessment/Plan VTE Prophylaxis Risk score (from [facility])>0 risk: 3 SCD applied (from [facility]): Yes Pharmacological prophylaxis: heparin Lines/Catheters IV Catheter Type (from [facility]): Peripheral IV Assessment/Plan Assessment/Plan Assessment: Gallstone pancreatitis Rule out choledocholithiasis -filling defect in distal common bile duct on MRCP Transaminitis Leukocytosis Epigastric pain Hypertension Hyperlipidemia Arthritis Chest pain with elevated troponin - r/o [place] Plan: N.p.o. Continue IV fluids Pain management ERCP on possibly the pancreatitis is better Will need cardiac clearance in light of chest pain with elevated troponin prior to ERCP. Monitor Lipase - trending down Patient seen in collaboration with Dr. Gamble Subjective: Patient reports abdominal pain is improving, though did have chest pain last night. She did have minimally elevated troponin. Denies nausea or vomiting. Physical exam: GENERAL: Well developed, well nourished, obese, alert & oriented x 3, in no acute distress SKIN: No lesions, no stigmata chronic liver disease, no evidence of bleeding diathesis LYMPHATIC: No palpable lymphadenopathy. HEAD: Normocephalic, atraumatic, no tenderness. EYES: Pupils equal reactive to light and accommodation, full extraocular movements, sclera clear, non-icteric, no discharge. EARS/NOSE AND THROAT: Ears normal, nose normal, oropharynx normal, oral membranes well hydrated without lesions. NECK: Supple, no masses, thyroid normal, JVP within normal limits, carotids normal without bruits. CHEST: Inspection within normal limits. CARDIOVASCULAR: Heart: Regular rate and rhythm, no murmurs, gallops or rubs. Peripheral pulses present within normal limits, no cyanosis, clubbing or edemas. No pulsatile abdominal mass RESPIRATORY: Lungs clear to auscultation and percussion, no wheezing, no rubs GASTROINTESTINAL AND LIVER: Abdomen: Soft, epigastric tenderness, non-distended, no hernias, no masses, no organomegaly, no ascites, no guarding, no rebound tenderness, normoactive bowel sounds. Rectal: Deferred. GENITOURINARY: Female genitalia within normal limits. EXTREMITIES: No cyanosis, clubbing or edema. Result Diagram: 07/25/18 0529 07/25/18 0529 Results 24hrs Laboratory Tests Test 07/24/18 17:36 07/25/18 05:29 07/25/18 15:40 Urine Color YELLOW Urine Clarity CLEAR Urine pH 6.0 Urine Specific [place] 1.008 Urine Ketones NEGATIVE Urine Nitrite NEGATIVE Urine Bilirubin NEGATIVE Urine Urobilinogen NEGATIVE Urine Leukocyte Esterase NEGATIVE Urine Hemoglobin NEGATIVE Urine Random Sodium 78 Urine Glucose NEGATIVE Urine Total Protein NEGATIVE White Blood Count 13.8 H Red Blood Count 4.15 L Hemoglobin 11.7 L Hematocrit 34.9 L Mean Corpuscular Volume 84.1 Mean Corpuscular Hemoglobin 28.2 L Mean Corpuscular Hemoglobin Concent 33.5 Red Cell Distribution Width 14.9 H Platelet Count 267 Mean Platelet Volume 11.1 H Immature Granulocytes % 0.400 Neutrophils % 87.3 H Lymphocytes % 9.1 L Monocytes % 3.0 Eosinophils % 0.1 Basophils % 0.1 Nucleated Red Blood Cells % 0.0 Immature Granulocytes # 0.050 H Neutrophils # 12.0 H Lymphocytes # 1.3 Monocytes # 0.4 Eosinophils # 0.0 Basophils # 0.0 Nucleated Red Blood Cells # 0.0 Sodium Level 135 Potassium Level 3.7 Chloride Level 102 Carbon Dioxide Level 25 Anion Gap 8 Blood Urea Nitrogen 12 # Creatinine 0.72 # Est Glomerular Filtrat Rate mL/min Glucose Level 150 Calcium Level 9.5 Phosphorus Level 3.1 Magnesium Level 1.9 Total Bilirubin 0.5 Direct Bilirubin 0.00 # Indirect Bilirubin 0.5 Aspartate Amino Transf (AST/SGOT) 64 H Alanine Aminotransferase (ALT/SGPT) 65 Alkaline Phosphatase 222 H Total Protein 7.4 # Albumin 3.9 Globulin 3.50 H Albumin/Globulin Ratio 1.11 Amylase Level 145 #H Lipase 2759 H Troponin I 0.126 *H CC: GUILLE GAMBLE ; Exam/Review of Systems Exam Vitals Vital Signs Date Temp Pulse Resp B/P (MAP) Pulse Ox O2 O2 Flow FiO2 Time Delivery Rate 07/25/18 75 138/62 15:24 (87) 07/25/18 98.2 18 100 Room Air 14:29 Intake and Output 07/24/18 07/24/18 07/25/18 1515:00 23:00 07:00 IntakeIntake Total 300 ml 1200 ml 1850 ml OutputOutput Total 1000 ml 500 ml BalanceBalance -700 ml 700 ml 1850 ml Results Results 24hrs Laboratory Tests Test 07/24/18 17:36 07/25/18 05:29 07/25/18 15:40 Urine Color YELLOW Urine Clarity CLEAR Urine pH 6.0 Urine Specific [place] 1.008 Urine Ketones NEGATIVE Urine Nitrite NEGATIVE Urine Bilirubin NEGATIVE Urine Urobilinogen NEGATIVE Urine Leukocyte Esterase NEGATIVE Urine Hemoglobin NEGATIVE Urine Random Sodium 78 Urine Glucose NEGATIVE Urine Total Protein NEGATIVE White Blood Count 13.8 H Red Blood Count 4.15 L Hemoglobin 11.7 L Hematocrit 34.9 L Mean Corpuscular Volume 84.1 Mean Corpuscular Hemoglobin 28.2 L Mean Corpuscular Hemoglobin Concent 33.5 Red Cell Distribution Width 14.9 H Platelet Count 267 Mean Platelet Volume 11.1 H Immature Granulocytes % 0.400 Neutrophils % 87.3 H Lymphocytes % 9.1 L Monocytes % 3.0 Eosinophils % 0.1 Basophils % 0.1 Nucleated Red Blood Cells % 0.0 Immature Granulocytes # 0.050 H Neutrophils # 12.0 H Lymphocytes # 1.3 Monocytes # 0.4 Eosinophils # 0.0 Basophils # 0.0 Nucleated Red Blood Cells # 0.0 Sodium Level 135 Potassium Level 3.7 Chloride Level 102 Carbon Dioxide Level 25 Anion Gap 8 Blood Urea Nitrogen 12 # Creatinine 0.72 # Est Glomerular Filtrat Rate mL/min Glucose Level 150 Calcium Level 9.5 Phosphorus Level 3.1 Magnesium Level 1.9 Total Bilirubin 0.5 Direct Bilirubin 0.00 # Indirect Bilirubin 0.5 Aspartate Amino Transf (AST/SGOT) 64 H Alanine Aminotransferase (ALT/SGPT) 65 Alkaline Phosphatase 222 H Total Protein 7.4 # Albumin 3.9 Globulin 3.50 H Albumin/Globulin Ratio 1.11 Amylase Level 145 #H Lipase 2759 H Troponin I 0.126 *H Medications Medication Current Medications Dextrose/Sodium Chloride 1,000 ml @ 150 mls/hr Q6H40M IV Last administered on 07/25/18at 13:26; Admin Dose 150 MLS/HR; Start 07/23/18 at 02:08 IV Flush (NS 3 ml) 3 ml PER PROTOCOL IV ; Start 07/23/18 at 02:30 Ondansetron HCl (Zofran Inj) 4 mg Q6H PRN IV NAUSEA/VOMITING; Start 07/23/18 at 02:30 Morphine Sulfate (morphine) 2 mg Q4H PRN IV .SEVERE PAIN 7-10 Last administered on 07/24/18at 07:59; Admin Dose 2 MG; Start 07/23/18 at 02:30 Acetaminophen (Tylenol Tab) 650 mg Q6H PRN PO MILD PAIN(1-3)OR ELEVATED TEMP Last administered on 07/25/18 13:33; Admin Dose 650 MG; Start 07/23/18 at 12:30 Enoxaparin Sodium (Lovenox) 40 mg DAILY SC Last administered on 07/25/18 09:20; Admin Dose 40 MG; Start 07/24/18 at 09:00 Docusate Sodium (Colace) 100 mg BID PO Last administered on 07/24/18 20:29; Admin Dose 100 MG; Start 07/23/18 at 21:00 Pantoprazole (Protonix Iv) 40 mg DAILY@06 IV Last administered on 07/25/18 05:01; Admin Dose 40 MG; Start 07/24/18 at 06:00 Senna (Senokot) 1 tab BID PO Last administered on 07/24/18 20:29; Admin Dose 1 TAB; Start 07/24/18 at 09:30 Metoprolol Tartrate (Lopressor) 25 mg BID PO Last administered on 07/25/18 09:19; Admin Dose 25 MG; Start 07/24/18 at 09:30 Hydralazine HCl (Apresoline) 10 mg Q6H PRN IV sbp>160mmhg Last administered on 07/25/18 14:27; Admin Dose 10 MG; Start 07/24/18 at 09:30 Ceftriaxone Sodium 50 ml @ 100 mls/hr Q24H IVPB Last administered on 07/25/18 09:31; Admin Dose 100 MLS/HR; Start 07/24/18 at 10:00 Hydromorphone HCl (Dilaudid) 0.5 mg Q3H PRN IV SEVERE PAIN LEVEL 7-10 Last administered on 07/24/18 20:30; Admin Dose 0.5 MG; Start 07/24/18 at 09:30 Atorvastatin Calcium (Lipitor) 20 mg DAILY@21 PO Last administered on 07/24/18 20:30; Admin Dose 20 MG; Start 07/24/18 at 21:00 Zolpidem Tartrate (Ambien) 5 mg HS PRN PO INSOMNIA Last administered on 07/24/18 23:47; Admin Dose 5 MG; Start 07/24/18 at 17:00 Lisinopril (Zestril) 10 mg BID PO Last administered on 07/25/18at 09:31; Admin Dose 10 MG; Start 07/25/18 at 09:30 DAISY PATEL LAUNDRY WORKER Jul 25, 2018 16:51
[2018-07-25] MEDS ORDERED: ASPIRIN 325 MG TAB PO ONE (17:00)
[2018-07-25] MEDS ORDERED: ASPIRIN 300 MG SUPP PR ONE (18:30)
[2018-07-25] MEDS: morphine 2 MG INJ IV PRN (19:24)
[2018-07-25] MEDS: ATORVASTATIN 80 MG TAB PO SCH (20:33)
[2018-07-25] MEDS: ZOLPIDEM 5 MG TAB PO PRN (20:33)
[2018-07-26] VITALS (13 sets, daily range): BP systolic 159–177; BP diastolic 71–82; PULSE 61–74; RESP 17–18
[2018-07-26] MEDS: NITROGLYCERIN (SL) 0.4 MG TAB SL PRN (02:42)
[2018-07-26] MEDS: DEXTROSE 5%-0.45% NACL 1,000 ML IV SCH ×6 (02:50→22:06)
[2018-07-26] MEDS: PANTOPRAZOLE 40 MG INJ IV SCH (05:57)
[2018-07-26] MEDS: hydrALAzine 20 MG INJ IV PRN ×2 (07:10→16:05)
[2018-07-26] MEDS: ASPIRIN 81 MG TAB PO SCH (08:22)
[2018-07-26] MEDS: ACETAMINOPHEN 325 MG TAB PO PRN ×3 (08:22→20:47)
[2018-07-26] MEDS: SENNA TAB PO SCH ×2 (08:22→20:48)
[2018-07-26] MEDS: DOCUSATE SODIUM 100 MG CAP PO SCH ×2 (08:22→20:47)
[2018-07-26] MEDS: LISINOPRIL 10 MG TAB PO SCH (08:23)
[2018-07-26] MEDS: METOPROLOL 25 MG TAB PO SCH (08:23)
[2018-07-26] MEDS: ENOXAPARIN 40 MG/0.4 ML SYG SC SCH (08:31)
[2018-07-26] MEDS ORDERED: ASPIRIN 300 MG SUPP PR SCH (09:00)
[2018-07-26] MEDS: CEFTRIAXONE 1 GM/50 ML (PMX) 50 ML IVPB SCH (09:08)
[2018-07-26] MEDS ORDERED: POTASSIUM CHLORIDE (SR) 20 MEQ TAB PO STA (09:40)
--- NOTE | 2018-07-26 09:47 | PN ---
Date/Time of Note Date/Time of Note DATE: 07/26/18 TIME: 09:41 Assessment/Plan VTE Prophylaxis Risk score (from Ns)>0 risk: 4 SCD applied (from Ns): Yes Pharmacological prophylaxis: LMWH Lines/Catheters IV C[facility]ter Type (from [facility]): Peripheral IV Assessment/Plan Hospital Course SUBJECTIVE: Patient with chest pain this morning. She is also mildly short of breath requiring supplemental oxygen. No palpitation. OBJECTIVE: Vital signs-see below PHYSICAL EXAM: Constitutional: Well-developed, well-nourished elderly female, not in acute distress. HEENT: Head atraumatic and normocephalic. Eyes: Extraocular muscles intact. Anicteric sclerae. Pupils equal bilaterally, reactive to light. NECK: Supple without lymph node. CHEST: Clear and good breath sounds equally. No wheezing. No rhonchi. HEART: S1, S2. Regular rate and rhythm. ABDOMEN: Mild tenderness to the umbilical area which is improved significantly. Otherwise abdomen soft with no rebound tenderness. Bowel sounds were present. EXTREMITIES: Full range of motion in all the extremities. No cyanosis, clubbing or edema. NEUROLOGIC: Alert and oriented x3. No focal deficit. No sensory deficit. PSYCHOSOCIAL: In a good mood. No signs of depression. INTEGUMENTARY: Moist mucous membranes. Good skin turgor, intact. ASSESSMENT AND PLAN:37-year-old female with a history of hypertension, anemia, hepatic steatosis, admitted with periumbilical/right-sided abdominal pain, found to have acute biliary pancreatitis, now with chest pain/troponin leak. 1. Chest pain with troponin leak, Assess for ACS -Obtain stat 12-lead EKG. Cardiology consultation requested with Dr. Adam. -Aspirin, high intensity statin, as needed nitroglycerin, as needed morphine, supplemental oxygen. 2. Acute biliary pancreatitis. -This is improving nicely. However we will continue n.p.o. status for possible further cardiac workup. -Plan is ERCP, however in light of #1, we need to rule out chest pain workup completely prior to doing any invasive procedures. 3. Biliary ductal dilatation, possible choledocholithiasis. -Again, plan is ERCP once cardiology workup is completed. 4. Essential hypertension. -Needs more control. Up titrate beta blockers to 50 mg twice daily. Continue lisinopril. 5. Hyperlipidemia. -Continue statin. 6. Incidental finding of left adnexal mass, likely benign. -Recommend follow-up CT in 3 months as outpatient. 7. Leukocytosis, likely reactive. -Resolved. Stop antibiotics after 2 days.. 8. Anemia, likely chronic. -Stable H&H. Continue to monitor. 9. Obesity with a BMI 32.3. -Lifestyle changes advised. DVT prophylaxis: Start SC Heparin PUD prophylaxis: Protonix. Disposition: Continue cardiac workup and follow-up cardiology recommendation. In light of elevated troponin and chest pain, patient needs to have further cardiac workup prior to proceeding with ERCP. This was discussed with nursing staff. Patient was seen in collaboration with Dr. Mustafa. Result Diagram: 07/26/18 0351 07/26/18 0350 Results 24hrs Laboratory Tests Test 07/25/18 15:40 07/25/18 22:18 07/26/18 03:50 07/26/18 03:51 Troponin I 0.126 *H 0.159 *H 0.137 *H Triglycerides Level 108 Cholesterol Level 138 LDL Cholesterol, 75 Calculated HDL Cholesterol 41 Cholesterol/HDL 3.3 Ratio Sodium Level 138 Potassium Level 3.0 L Chloride Level 107 Carbon Dioxide Level 22 Anion Gap 9 Blood Urea Nitrogen 6 L Creatinine 0.57 Est Glomerular Filtrat Rate mL/min Glucose Level 121 Calcium Level 9.3 Total Bilirubin 0.4 Direct Bilirubin 0.00 Indirect Bilirubin 0.4 Aspartate Amino 40 Transf (AST/SGOT) Alanine 56 Aminotransferase (AL T/SGPT) Alkaline Phosphatase 196 H Total Protein 6.6 Albumin 3.4 Globulin 3.20 Albumin/Globulin 1.06 Ratio White Blood Count 8.1 # Red Blood Count 3.83 L Hemoglobin 10.9 L Hematocrit 31.8 L Mean Corpuscular 83.0 Volume Mean Corpuscular 28.5 L Hemoglobin Mean Corpuscular 34.3 Hemoglobin Concent Red Cell 14.8 H Distribution Width Platelet Count 267 Mean Platelet Volume 10.6 H Immature 0.500 H Granulocytes % Neutrophils % 74.0 Lymphocytes % 16.3 Monocytes % 6.3 Eosinophils % 2.5 Basophils % 0.4 Nucleated Red Blood 0.0 Cells % Immature 0.040 H Granulocytes # Neutrophils # 6.0 Lymphocytes # 1.3 Monocytes # 0.5 Eosinophils # 0.2 Basophils # 0.0 Nucleated Red Blood 0.0 Cells # Hemoglobin A1c 5.8 Lipase 951 H Test 07/26/18 06:00 Bedside Glucose 139 Exam/Review of Systems Exam Vitals Vital Signs Date Temp Pulse Resp B/P (MAP) Pulse Ox O2 O2 Flow FiO2 Time Delivery Rate 07/26/18 72 08:00 07/26/18 97.9 18 173/78 96 07:13 (109) 07/25/18 Room Air 14:29 Intake and Output 07/25/18 07/25/18 07/26/18 1515:00 23:00 07:00 IntakeIntake Total 1050 ml 650 ml 1450 ml OutputOutput Total 500 ml 600 ml BalanceBalance 550 ml 50 ml 1450 ml Results Results 24hrs Laboratory Tests Test 07/25/18 15:40 07/25/18 22:18 07/26/18 03:50 07/26/18 03:51 Troponin I 0.126 *H 0.159 *H 0.137 *H Triglycerides Level 108 Cholesterol Level 138 LDL Cholesterol, 75 Calculated HDL Cholesterol 41 Cholesterol/HDL 3.3 Ratio Sodium Level 138 Potassium Level 3.0 L Chloride Level 107 Carbon Dioxide Level 22 Anion Gap 9 Blood Urea Nitrogen 6 L Creatinine 0.57 Est Glomerular Filtrat Rate mL/min Glucose Level 121 Calcium Level 9.3 Total Bilirubin 0.4 Direct Bilirubin 0.00 Indirect Bilirubin 0.4 Aspartate Amino 40 Transf (AST/SGOT) Alanine 56 Aminotransferase (AL T/SGPT) Alkaline Phosphatase 196 H Total Protein 6.6 Albumin 3.4 Globulin 3.20 Albumin/Globulin 1.06 Ratio White Blood Count 8.1 # Red Blood Count 3.83 L Hemoglobin 10.9 L Hematocrit 31.8 L Mean Corpuscular 83.0 Volume Mean Corpuscular 28.5 L Hemoglobin Mean Corpuscular 34.3 Hemoglobin Concent Red Cell 14.8 H Distribution Width Platelet Count 267 Mean Platelet Volume 10.6 H Immature 0.500 H Granulocytes % Neutrophils % 74.0 Lymphocytes % 16.3 Monocytes % 6.3 Eosinophils % 2.5 Basophils % 0.4 Nucleated Red Blood 0.0 Cells % Immature 0.040 H Granulocytes # Neutrophils # 6.0 Lymphocytes # 1.3 Monocytes # 0.5 Eosinophils # 0.2 Basophils # 0.0 Nucleated Red Blood 0.0 Cells # Hemoglobin A1c 5.8 Lipase 951 H Test 07/26/18 06:00 Bedside Glucose 139 Medications Medication Current Medications Dextrose/Sodium Chloride 1,000 ml @ 150 mls/hr Q6H40M IV Last administered on 07/26/18 09:08; Admin Dose 150 MLS/HR; Start 07/23/18 at 02:08 IV Flush (NS 3 ml) 3 ml PER PROTOCOL IV ; Start 07/23/18 at 02:30 Ondansetron HCl (Zofran Inj) 4 mg Q6H PRN IV NAUSEA/VOMITING; Start 07/23/18 at 02:30 Morphine Sulfate (morphine) 2 mg Q4H PRN IV .SEVERE PAIN 7-10 Last administered on 07/25/18 19:24; Admin Dose 2 MG; Start 07/23/18 at 02:30 Acetaminophen (Tylenol Tab) 650 mg Q6H PRN PO MILD PAIN(1-3)OR ELEVATED TEMP Last administered on 07/26/18 08:22; Admin Dose 650 MG; Start 07/23/18 at 12:30 Enoxaparin Sodium (Lovenox) 40 mg DAILY SC Last administered on 07/26/18 08:31; Admin Dose 40 MG; Start 07/24/18 at 09:00 Docusate Sodium (Colace) 100 mg BID PO Last administered on 07/26/18 08:22; Admin Dose 100 MG; Start 07/23/18 at 21:00 Pantoprazole (Protonix Iv) 40 mg DAILY@06 IV Last administered on 07/26/18 05:57; Admin Dose 40 MG; Start 07/24/18 at 06:00 Senna (Senokot) 1 tab BID PO Last administered on 07/26/18 08:22; Admin Dose 1 TAB; Start 07/24/18 at 09:30 Metoprolol Tartrate (Lopressor) 25 mg BID PO Last administered on 07/26/18 08:23; Admin Dose 25 MG; Start 07/24/18 at 09:30 Hydralazine HCl (Apresoline) 10 mg Q6H PRN IV sbp>160mmhg Last administered on 07/26/18 07:10; Admin Dose 10 MG; Start 07/24/18 at 09:30 Ceftriaxone Sodium 50 ml @ 100 mls/hr Q24H IVPB Last administered on 07/26/18 09:08; Admin Dose 100 MLS/HR; Start 07/24/18 at 10:00 Hydromorphone HCl (Dilaudid) 0.5 mg Q3H PRN IV SEVERE PAIN LEVEL 7-10 Last administered on 07/24/18 20:30; Admin Dose 0.5 MG; Start 07/24/18 at 09:30 Zolpidem Tartrate (Ambien) 5 mg HS PRN PO INSOMNIA Last administered on 07/25/18 20:33; Admin Dose 5 MG; Start 07/24/18 at 17:00 Lisinopril (Zestril) 10 mg BID PO Last administered on 07/26/18 08:23; Admin Dose 10 MG; Start 07/25/18 at 09:30 Aspirin (Aspirin) 81 mg DAILY PO Last administered on 07/26/18 08:22; Admin Dose 81 MG; Start 07/26/18 at 09:00 Atorvastatin Calcium (Lipitor) 80 mg HS PO Last administered on 07/25/18 20:33; Admin Dose 80 MG; Start 07/25/18 at 21:00 Nitroglycerin (Nitroglycerin (Sl Tab) 0.4 Mg) 1 tab Q5M PRN SL ANGINA Last administered on 07/26/18 02:42; Admin Dose 1 TAB; Start 07/25/18 at 18:30 ALISE AGUILAR NP Jul 26, 2018 09:47
[2018-07-26] MEDS ORDERED: METOPROLOL 25 MG TAB PO ONE (10:30)
--- NOTE | 2018-07-26 11:31 | QN ---
Documentation Comment Events noted Waiting ERCP tomorrow As there are no further surgical recommendations, will sign off and see again prn your request ESTRELLA SEGOVIA MD Jul 26, 2018 11:31
--- NOTE | 2018-07-26 12:50 | PN ---
Date/Time of Note Date/Time of Note DATE: 07/26/18 TIME: 12:39 Assessment/Plan VTE Prophylaxis Risk score (from Nsg)>0 risk: 6 SCD applied (from Nsg): Yes Pharmacological prophylaxis: other (scds) Lines/Catheters IV Catheter Type (from Nrsg): Peripheral IV Assessment/Plan Hospital Course Assessment/Plan Assessment: Gallstone pancreatitis Rule out choledocholithiasis -filling defect in distal common bile duct on MRCP Transaminitis Leukocytosis Epigastric pain Hypertension Hyperlipidemia Arthritis Chest pain with elevated troponin - r/o HI Plan: Start clear liquid diet Continue IV fluids Pain management ERCP on hold until cleared to have procedure Will need cardiac clearance in light of chest pain with elevated troponin prior to ERCP. Monitor Lipase - trending down Patient seen in collaboration with Dr. Aguilar Subjective: Pt resting in bed with family at bedside. She c/o mild abd pain with deep palpation stating pain is a 1 to 2 out of ten. no c.o nausea or vomiting. Discussed new plan with patient and family- We will hold off on ERCP until medically cleared. I reviewed procedure and sedation with both patient and family including risks/benefits all verbalized understanding and agreeable to proceed with procedure when the patient is cleared. Physical exam: GENERAL: Well developed, well nourished, obese, alert & oriented x 3, in no acute distress SKIN: No lesions HEAD: Normocephalic, atraumatic, no tenderness. EYES: Pupils equal reactive to light, no discharge. EARS/NOSE AND THROAT: Ears normal, nose normal, oropharynx normal. NECK: Supple, no masses CHEST: Inspection within normal limits. CARDIOVASCULAR: Heart: Regular rate and rhythm RESPIRATORY: Lungs clear to auscultation GASTROINTESTINAL AND LIVER: Abdomen: Soft, epigastric tenderness with deep palpation 1-2/10, non-distended, no hernias, no masses, no organomegaly, no ascites, no guarding, no rebound tenderness, normoactive bowel sounds. Rectal: Deferred. Result Diagram: 07/26/18 0351 07/26/18 0350 Results 24hrs Laboratory Tests Test 07/25/18 15:40 07/25/18 22:18 07/26/18 03:50 07/26/18 03:51 Troponin I 0.126 *H 0.159 *H 0.137 *H Triglycerides Level 108 Cholesterol Level 138 LDL Cholesterol, 75 Calculated HDL Cholesterol 41 Cholesterol/HDL 3.3 Ratio Sodium Level 138 Potassium Level 3.0 L Chloride Level 107 Carbon Dioxide Level 22 Anion Gap 9 Blood Urea Nitrogen 6 L Creatinine 0.57 Est Glomerular Filtrat Rate mL/min Glucose Level 121 Calcium Level 9.3 Total Bilirubin 0.4 Direct Bilirubin 0.00 Indirect Bilirubin 0.4 Aspartate Amino 40 Transf (AST/SGOT) Alanine 56 Aminotransferase (AL T/SGPT) Alkaline Phosphatase 196 H Total Protein 6.6 Albumin 3.4 Globulin 3.20 Albumin/Globulin 1.06 Ratio White Blood Count 8.1 # Red Blood Count 3.83 L Hemoglobin 10.9 L Hematocrit 31.8 L Mean Corpuscular 83.0 Volume Mean Corpuscular 28.5 L Hemoglobin Mean Corpuscular 34.3 Hemoglobin Concent Red Cell 14.8 H Distribution Width Platelet Count 267 Mean Platelet Volume 10.6 H Immature 0.500 H Granulocytes % Neutrophils % 74.0 Lymphocytes % 16.3 Monocytes % 6.3 Eosinophils % 2.5 Basophils % 0.4 Nucleated Red Blood 0.0 Cells % Immature 0.040 H Granulocytes # Neutrophils # 6.0 Lymphocytes # 1.3 Monocytes # 0.5 Eosinophils # 0.2 Basophils # 0.0 Nucleated Red Blood 0.0 Cells # Hemoglobin A1c 5.8 Lipase 951 H Test 07/26/18 06:00 Bedside Glucose 139 Exam/Review of Systems Exam Vitals Vital Signs Date Temp Pulse Resp B/P (MAP) Pulse Ox O2 O2 Flow FiO2 Time Delivery Rate 07/26/18 97.5 61 17 163/74 97 11:20 (103) 07/25/18 Room Air 14:29 Intake and Output 07/25/18 07/25/18 07/26/18 1515:00 23:00 07:00 IntakeIntake Total 1050 ml 650 ml 1450 ml OutputOutput Total 500 ml 600 ml BalanceBalance 550 ml 50 ml 1450 ml Results Results 24hrs Laboratory Tests Test 07/25/18 15:40 07/25/18 22:18 07/26/18 03:50 07/26/18 03:51 Troponin I 0.126 *H 0.159 *H 0.137 *H Triglycerides Level 108 Cholesterol Level 138 LDL Cholesterol, 75 Calculated HDL Cholesterol 41 Cholesterol/HDL 3.3 Ratio Sodium Level 138 Potassium Level 3.0 L Chloride Level 107 Carbon Dioxide Level 22 Anion Gap 9 Blood Urea Nitrogen 6 L Creatinine 0.57 Est Glomerular Filtrat Rate mL/min Glucose Level 121 Calcium Level 9.3 Total Bilirubin 0.4 Direct Bilirubin 0.00 Indirect Bilirubin 0.4 Aspartate Amino 40 Transf (AST/SGOT) Alanine 56 Aminotransferase (AL T/SGPT) Alkaline Phosphatase 196 H Total Protein 6.6 Albumin 3.4 Globulin 3.20 Albumin/Globulin 1.06 Ratio White Blood Count 8.1 # Red Blood Count 3.83 L Hemoglobin 10.9 L Hematocrit 31.8 L Mean Corpuscular 83.0 Volume Mean Corpuscular 28.5 L Hemoglobin Mean Corpuscular 34.3 Hemoglobin Concent Red Cell 14.8 H Distribution Width Platelet Count 267 Mean Platelet Volume 10.6 H Immature 0.500 H Granulocytes % Neutrophils % 74.0 Lymphocytes % 16.3 Monocytes % 6.3 Eosinophils % 2.5 Basophils % 0.4 Nucleated Red Blood 0.0 Cells % Immature 0.040 H Granulocytes # Neutrophils # 6.0 Lymphocytes # 1.3 Monocytes # 0.5 Eosinophils # 0.2 Basophils # 0.0 Nucleated Red Blood 0.0 Cells # Hemoglobin A1c 5.8 Lipase 951 H Test 07/26/18 06:00 Bedside Glucose 139 Medications Medication Current Medications Dextrose/Sodium Chloride 1,000 ml @ 150 mls/hr Q6H40M IV Last administered on 07/26/18at 09:08; Admin Dose 150 MLS/HR; Start 07/23/18 at 02:08 IV Flush (NS 3 ml) 3 ml PER PROTOCOL IV ; Start 07/23/18 at 02:30 Ondansetron HCl (Zofran Inj) 4 mg Q6H PRN IV NAUSEA/VOMITING; Start 07/23/18 at 02:30 Morphine Sulfate (morphine) 2 mg Q4H PRN IV .SEVERE PAIN 7-10 Last administered on 07/25/18 19:24; Admin Dose 2 MG; Start 07/23/18 at 02:30 Acetaminophen (Tylenol Tab) 650 mg Q6H PRN PO MILD PAIN(1-3)OR ELEVATED TEMP Last administered on 07/26/18 08:22; Admin Dose 650 MG; Start 07/23/18 at 12:30 Docusate Sodium (Colace) 100 mg BID PO Last administered on 07/26/18 08:22; Admin Dose 100 MG; Start 07/23/18 at 21:00 Pantoprazole (Protonix Iv) 40 mg DAILY@06 IV Last administered on 07/26/18 05:57; Admin Dose 40 MG; Start 07/24/18 at 06:00 Senna (Senokot) 1 tab BID PO Last administered on 07/26/18 08:22; Admin Dose 1 TAB; Start 07/24/18 at 09:30 Hydralazine HCl (Apresoline) 10 mg Q6H PRN IV sbp>160mmhg Last administered on 07/26/18 07:10; Admin Dose 10 MG; Start 07/24/18 at 09:30 Ceftriaxone Sodium 50 ml @ 100 mls/hr Q24H IVPB Last administered on 07/26/18 09:08; Admin Dose 100 MLS/HR; Start 07/24/18 at 10:00 Hydromorphone HCl (Dilaudid) 0.5 mg Q3H PRN IV SEVERE PAIN LEVEL 7-10 Last administered on 07/24/18 20:30; Admin Dose 0.5 MG; Start 07/24/18 at 09:30 Zolpidem Tartrate (Ambien) 5 mg HS PRN PO INSOMNIA Last administered on 07/25/18 20:33; Admin Dose 5 MG; Start 07/24/18 at 17:00 Lisinopril (Zestril) 10 mg BID PO Last administered on 07/26/18 08:23; Admin Dose 10 MG; Start 07/25/18 at 09:30 Aspirin (Aspirin) 81 mg DAILY PO Last administered on 07/26/18 08:22; Admin Dose 81 MG; Start 07/26/18 at 09:00 Atorvastatin Calcium (Lipitor) 80 mg HS PO Last administered on 07/25/18 20:33; Admin Dose 80 MG; Start 07/25/18 at 21:00 Nitroglycerin (Nitroglycerin (Sl Tab) 0.4 Mg) 1 tab Q5M PRN SL ANGINA Last administered on 07/26/18 02:42; Admin Dose 1 TAB; Start 07/25/18 at 18:30 Heparin Sodium (Porcine) (Heparin (5000 Units/1ml)) 5,000 unit Q8 SC ; Start 07/26/18 at 14:00 Metoprolol Tartrate (Lopressor) 50 mg BID PO ; Start 07/26/18 at 21:00 ELIZABETH REYNAGA Jul 26, 2018 12:49
[2018-07-26] MEDS: CLOPIDOGREL 75 MG TAB PO SCH (14:35)
[2018-07-26] MEDS: ISOSORBIDE MONONITRATE(SR)30 MG TAB PO SCH (14:36)
[2018-07-26] MEDS: LISINOPRIL 20 MG TAB PO SCH (14:36)
--- NOTE | 2018-07-26 14:42 | CONS ---
DATE OF ADMISSION: 07/23/2018 DATE OF CONSULTATION: 07/26/2018 REASON FOR CONSULTATION: Chest pain. HISTORY OF PRESENT ILLNESS: The patient is a 77-year-old female who complains of chest pain associat ed with shortness of breath with radiation of the pain to the left upper extremity. Denies nausea, v omiting. Denies dizziness or palpitation. Denies complaints of headache, but no blurry vision. No fever, chills, or rigors. PAST MEDICAL HISTORY: Significant for: 1. Pancreatitis. 2. Hypertension. 3. Dyslipidemia. 4. Thyroid nodule. SOCIAL HISTORY: No smoking, alcohol or recreational drugs. ALLERGIES: CODEINE. CURRENT MEDICATIONS: 1. Senna. 2. Lisinopril. 3. Metoprolol. 4. Aspirin. 5. Protonix. 6. Lipitor. 7. Ceftriaxone. 8. Heparin. REVIEW OF SYSTEMS: Unremarkable except that mentioned in the HPI. PHYSICAL EXAMINATION: VITAL SIGNS: Temperature is 97.5 with a heart rate of 61, blood pressure 163/74 mmHg, breathing at 9 7%. GENERAL: Patient awake, alert, oriented, in no apparent distress. NECK: No JVD or carotid bruit. CARDIOVASCULAR: Regular rate and rhythm. No murmur, rub or gallop. LUNGS: Clear to auscultation. ABDOMEN: Soft. Bowel sounds are present. There is no organomegaly. EXTREMITIES: No pedal edema. DIAGNOSTIC DATA: Review of 12-lead EKG shows normal sinus rhythm with a ventricular rate of 66 beats per minute with normal OK, normal QRS and prolonged QT interval with right bundle branch block. LABORATORY DATA: WBC 8.1, hemoglobin 10.9, hematocrit 31.8 with a platelet of 267. Sodium 138, pota ssium 3, chloride 107, CO2 of 22, hemoglobin 5.8, lipase 951. Troponin first set 0.12, second set 0. 15, third set is 0.13. ASSESSMENT AND PLAN: A 77-year-old female with: 1. Acute coronary syndrome. 2. Abnormal electrocardiogram with right bundle branch block with nonspecific ST-T wave changes. 3. Hypertension. 4. Dyslipidemia. 5. Pancreatitis. 6. Thyroid nodule. RECOMMENDATIONS: 1. Started on Imdur 30 mg daily. 2. Continue Lopressor. 3. Increase lisinopril to 40 mg daily. 4. Started on Plavix 75 mg daily. 5. Continue Lipitor. 6. Echocardiogram. 7. Recommend cardiac catheterization. 8. Started on heparin infusion. Dictated By: PIA MEHTA MD SR/ALHAJI Conf#: [id number] DID#: [id number]
[2018-07-26] MEDS: HEPARIN 5,000 UNIT/1 ML VIAL SC SCH ×2 (14:47→22:19)
--- NOTE | 2018-07-26 15:40 | RADRPT ---
Echocardiogram Report Patient Name: Aaron CALDWELLtient ID: [id number] : 1940 (77y 11m)Study Date: 07/26/2018 10:30:58 AM Gender: FAccession #: [id number] Tech: [facility] – [place] Location: Ref.Physician: DENG BILLINGS Height(Cm): 157 BSA: 1.87Weight(Kg): 79.8 Quality: AdequateAccount #: Procedures: Echocardiographic Report: Transthoracic echocardiogram with 2D, M-Mode, and Doppler examination, poor subcostal images. Indications: Chest Pain. Measurements: 2D/M Mode Doppler Measurement Value Normal Range Measurement Value Normal Range LA Volume 46.5 [ 22.0 - 52.0 ] ml AV Peak Nabeel 1.4 [ 100.0 - 170.0 ] c m/sec LA Volume Index 26 [ 16 - 34 ] ml/m2 AV Peak PG 8.0 [ 2.0 - 9.0 ] mmHg LVIDd 2D 4.2 [ 3.8 - 5.2 ] cm LVOT Peak Nabeel 1.0 [ 70.0 - 110.0 ] cm /sec LVIDs 2D 2.6 [ 2.2 - 3.5 ] cm LVOT Peak PG 4.0 [ 2.0 - 6.0 ] mmHg LVPWd 2D 1.1 [ 0.6 - 0.9 ] cm MV E Peak Nabeel 1.0 [ 60.0 - 130.0 ] cm /sec IVSd 2D 1.1 [ 0.6 - 0.9 ] cm MV A Peak Nabeel 1.1 [ 100.0 - 120.0 ] c m/sec AoR Diam 2D 3.3 [ 2.3 - 3.1 ] cm MV E/A 0.9 [ 0.8 - 1.5 ] ratio EF 2D 67.4 [ 54.0 - 74.0 ] percent MV PHT 63.0 [ 20.0 - 100.0 ] ms ec LA Dimen 2D 3.7 [ 2.7 - 3.8 ] cm MV Decel Time 214 [ 104 - 258 ] msec MV Decel [place] 4 Lat E` Nabeel 0.1 [ 10.0 - 15.0 ] cm/ sec Lateral E/E` 15.8 [ 1.0 - 2.0 ] ratio Med E` Nabeel 0.1 cm/sec MV E/A 0.9 [ 0.8 - 1.5 ] ratio MVA PHT 3.5 [ 2.0 - 4.0 ] cm2 TR Peak Nabeel 2.7 [ 100.0 - 280.0 ] c m/sec TR Peak PG 30.0 mmHg PV Peak Nabeel 0.8 [ 40.0 - 80.0 ] cm/ sec PV Peak PG 2.0 mmHg RVSP 33.0 [ 10.0 - 36.0 ] mmH g RA Pressure 3.0 mmHg Findings: Left Ventricle: Normal left ventricular systolic function. Normal left ventricular cavity size. Mild concentric left ventricular hypertrophy. Ejection fraction is visually estimated at 55 %. Tissue Doppler/Mitral Doppler indices are consistent with impaired relaxation (Stage I diastolic dysfunction). E/E'= 16. Right Ventricle: Normal right ventricular size. Normal right ventricular systolic function. Left Atrium: There is mild enlargement of left atrium, best appreciated by RONNIE of 28.6 ml/m2. Right Atrium: The right atrium is normal in size. Atrial Septum: Not well visualized. Mitral Valve: Normal appearance of the mitral valve. Mild mitral annular calcification. Mild mitral valve regurgitation. Aortic Valve: No hemodynamically significant aortic stenosis by doppler. Aortic cusps appear mildly calcified. Trace aortic valve regurgitation. Tricuspid Valve: Normal appearance of the tricuspid valve. Estimated peak PA systolic pressure 33 mmHg. There is mild tricuspid regurgitation. Pulmonic Valve: Normal pulmonic valve appearance. There is trace pulmonic regurgitation. Pericardium: Normal pericardium with no significant pericardial effusion. Left pleural effusion seen. Aorta: Normal aortic root. IVC: Normal size and normal respiratory collapse consistent with normal right atrial pressure. Pulmonary Artery: Normal pulmonary artery size. Conclusions: Normal left ventricular systolic function. Normal left ventricular cavity size. Mild concentric left ventricular hypertrophy. Ejection fraction is visually estimated at 55 %. Tissue Doppler/Mitral Doppler indices are consistent with impaired relaxation (Stage I diastolic dysfunction). Normal right ventricular size. Normal right ventricular systolic function. Mild mitral annular calcification. Mild mitral valve regurgitation. Aortic cusps appear mildly calcified. Trace aortic valve regurgitation. n. Normal appearance of the tricuspid valve. Estimated peak PA systolic pressure 33 mmHg. There is mild tricuspid regurgitation. Normal pericardium with no significant pericardial effusion. Left pleural effusion seen. Electronically Signed By: Werner Galindo 2018-07-26 15:39:15 PDT
[2018-07-26] MEDS: METOPROLOL 50 MG TAB PO SCH (20:46)
[2018-07-26] MEDS: ATORVASTATIN 80 MG TAB PO SCH (20:46)
[2018-07-26] MEDS: ZOLPIDEM 5 MG TAB PO PRN (20:46)
[2018-07-27] VITALS (16 sets, daily range): BP systolic 113–188; BP diastolic 58–78; PULSE 60–82; RESP 16–20
[2018-07-27] MEDS: morphine 2 MG INJ IV PRN (00:19)
[2018-07-27] MEDS: ACETAMINOPHEN 325 MG TAB PO PRN (02:07)
[2018-07-27] MEDS: DEXTROSE 5%-0.45% NACL 1,000 ML IV SCH (04:25)
[2018-07-27] MEDS: PANTOPRAZOLE 40 MG INJ IV SCH (05:37)
[2018-07-27] MEDS: HEPARIN 5,000 UNIT/1 ML VIAL SC SCH (05:43)
[2018-07-27] MEDS: HYDROmorphONE 0.5 MG/0.5 ML SYG IV PRN ×3 (05:45→22:15)
[2018-07-27] MEDS ORDERED: POTASSIUM CHLORIDE (SR) 20 MEQ TAB PO STA (08:58)
[2018-07-27] MEDS: SENNA TAB PO SCH ×2 (09:00→21:27)
[2018-07-27] MEDS: DOCUSATE SODIUM 100 MG CAP PO SCH ×2 (09:00→21:24)
--- NOTE | 2018-07-27 09:11 | PN ---
Date/Time of Note Date/Time of Note DATE: 07/27/18 TIME: 09:06 Assessment/Plan VTE Prophylaxis Risk score (from Ns)>0 risk: 4 SCD applied (from Ns): Yes Pharmacological prophylaxis: heparin Lines/Catheters IV Catheter Type (from [facility]): Peripheral IV Assessment/Plan Hospital Course SUBJECTIVE: Patient with chest pain, shortness of breath, feeling not week. OBJECTIVE: Vital signs-see below PHYSICAL EXAM: Constitutional: Well-developed, well-nourished elderly female, not in acute distress. HEENT: Head atraumatic and normocephalic. Eyes: Extraocular muscles intact. Anicteric sclerae. Pupils equal bilaterally, reactive to light. NECK: Supple without lymph node. CHEST: Clear and good breath sounds equally. No wheezing. No rhonchi. HEART: S1, S2. Regular rate and rhythm. ABDOMEN: Mild tenderness to the umbilical area which is improved significantly. Otherwise abdomen soft with no rebound tenderness. Bowel sounds were present. EXTREMITIES: Full range of motion in all the extremities. No cyanosis, clubbing or edema. NEUROLOGIC: Alert and oriented x3. No focal deficit. No sensory deficit. PSYCHOSOCIAL: In a good mood. No signs of depression. INTEGUMENTARY: Moist mucous membranes. Good skin turgor, intact. ASSESSMENT AND PLAN:37-year-old female with a history of hypertension, anemia, hepatic steatosis, admitted with periumbilical/right-sided abdominal pain, found to have acute biliary pancreatitis, now with chest pain/troponin leak. 1. Non-ST elevated myocardial infarction. -Cardiology following, possible plan for cardiac catheterization. -We will start IV heparin infusion -Continue aspirin/plavix/high intensity statin/BB. PRN nitroglycerin, morphine for pain. -Follow-up cardiology recommendations. 2. Diastolic dysfunction. -Patient with respiratory distress, will give 1 dose of IV Lasix now. Continue beta-blockers. 3. Acute biliary pancreatitis. -This is now resolved. Patient needs ERCP, when medically stable. 4. Biliary ductal dilatation, possible choledocholithiasis. -need eventual ERCP when medically stable. 5. Essential hypertension. -Stabilizing. Nitrates has been added. We will continue beta-blockers and JOSEPH inhibitors. Dosing per cardiology. 6. Hyperlipidemia. -Continue statin. 7. Incidental finding of left adnexal mass, likely benign. -Recommend follow-up CT in 3 months as outpatient. 8. Leukocytosis, likely reactive. -Resolved. Stop antibiotics in 24hrs 9. Anemia, likely chronic. -Stable H&H. Continue to monitor. 10. Obesity with a BMI 32.3. -Lifestyle changes advised. DVT prophylaxis: Heparin PUD prophylaxis: Protonix. Diet; clear diet. If no plan for cardiac cath, will advance diet. Disposition: Start heparin infusion. Continue with cardiac workup and follow-up cardiology recommendations. Most likely, patient needs cardiac catheterization. Patient was seen in collaboration with Dr. MAZA Result Diagram: 07/27/1844807/27/18448 Results 24hrs Laboratory Tests Test 07/26/18 14:24 07/27/18 04:49 B-Type Natriuretic Peptide 2800 H White Blood Count 6.4 # Red Blood Count 3.49 L Hemoglobin 9.9 L Hematocrit 29.2 L Mean Corpuscular Volume 83.7 Mean Corpuscular Hemoglobin 28.4 L Mean Corpuscular Hemoglobin Concent 33.9 Red Cell Distribution Width 14.9 H Platelet Count 284 Mean Platelet Volume 10.4 Immature Granulocytes % 1.100 H Neutrophils % 53.5 Lymphocytes % 31.7 Monocytes % 8.3 Eosinophils % 4.9 Basophils % 0.5 Nucleated Red Blood Cells % 0.0 Immature Granulocytes # 0.070 H Neutrophils # 3.4 Lymphocytes # 2.0 Monocytes # 0.5 Eosinophils # 0.3 Basophils # 0.0 Nucleated Red Blood Cells # 0.0 Sodium Level 135 Potassium Level 3.1 L Chloride Level 104 Carbon Dioxide Level 21 Anion Gap 10 Blood Urea Nitrogen 4 L Creatinine 0.59 Est Glomerular Filtrat Rate mL/min Glucose Level 119 Calcium Level 8.9 Magnesium Level 1.7 Troponin I 0.116 Lipase 403 H Exam/Review of Systems Exam Vitals Vital Signs Date Temp Pulse Resp B/P (MAP) Pulse Ox O2 O2 Flow FiO2 Time Delivery Rate 07/27/18 71 08:01 07/27/18 97.8 20 113/65 100 07:34 (81) 07/25/18 Room Air 14:29 Intake and Output 07/26/18 07/26/18 07/27/18 1414:59 22:59 06:59 IntakeIntake Total 1000 ml 2300 ml 900 ml BalanceBalance 1000 ml 2300 ml 900 ml Results Results 24hrs Laboratory Tests Test 07/26/18 14:24 07/27/18 04:49 B-Type Natriuretic Peptide 2800 H White Blood Count 6.4 # Red Blood Count 3.49 L Hemoglobin 9.9 L Hematocrit 29.2 L Mean Corpuscular Volume 83.7 Mean Corpuscular Hemoglobin 28.4 L Mean Corpuscular Hemoglobin Concent 33.9 Red Cell Distribution Width 14.9 H Platelet Count 284 Mean Platelet Volume 10.4 Immature Granulocytes % 1.100 H Neutrophils % 53.5 Lymphocytes % 31.7 Monocytes % 8.3 Eosinophils % 4.9 Basophils % 0.5 Nucleated Red Blood Cells % 0.0 Immature Granulocytes # 0.070 H Neutrophils # 3.4 Lymphocytes # 2.0 Monocytes # 0.5 Eosinophils # 0.3 Basophils # 0.0 Nucleated Red Blood Cells # 0.0 Sodium Level 135 Potassium Level 3.1 L Chloride Level 104 Carbon Dioxide Level 21 Anion Gap 10 Blood Urea Nitrogen 4 L Creatinine 0.59 Est Glomerular Filtrat Rate mL/min Glucose Level 119 Calcium Level 8.9 Magnesium Level 1.7 Troponin I 0.116 Lipase 403 H Medications Medication Current Medications Dextrose/Sodium Chloride 1,000 ml @ 150 mls/hr Q6H40M IV Last administered on 07/26/18at 22:06; Admin Dose 150 MLS/HR; Start 07/23/18 at 02:08 IV Flush (NS 3 ml) 3 ml PER PROTOCOL IV ; Start 07/23/18 at 02:30 Ondansetron HCl (Zofran Inj) 4 mg Q6H PRN IV NAUSEA/VOMITING; Start 07/23/18 at 02:30 Morphine Sulfate (morphine) 2 mg Q4H PRN IV .SEVERE PAIN 7-10 Last administered on 07/27/18at 00:19; Admin Dose 2 MG; Start 07/23/18 at 02:30 Acetaminophen (Tylenol Tab) 650 mg Q6H PRN PO MILD PAIN(1-3)OR ELEVATED TEMP Last administered on 07/27/18at 02:07; Admin Dose 650 MG; Start 07/23/18 at 12:30 Docusate Sodium (Colace) 100 mg BID PO Last administered on 07/26/18at 08:22; Admin Dose 100 MG; Start 07/23/18 at 21:00 Pantoprazole (Protonix Iv) 40 mg DAILY@06 IV Last administered on 07/27/18 05:37; Admin Dose 40 MG; Start 07/24/18 at 06:00 Senna (Senokot) 1 tab BID PO Last administered on 07/26/18 08:22; Admin Dose 1 TAB; Start 07/24/18 at 09:30 Hydralazine HCl (Apresoline) 10 mg Q6H PRN IV sbp>160mmhg Last administered on 07/26/18 16:05; Admin Dose 10 MG; Start 07/24/18 at 09:30 Ceftriaxone Sodium 50 ml @ 100 mls/hr Q24H IVPB Last administered on 07/26/18 09:08; Admin Dose 100 MLS/HR; Start 07/24/18 at 10:00 Hydromorphone HCl (Dilaudid) 0.5 mg Q3H PRN IV SEVERE PAIN LEVEL 7-10 Last administered on 07/27/18 05:45; Admin Dose 0.5 MG; Start 07/24/18 at 09:30 Zolpidem Tartrate (Ambien) 5 mg HS PRN PO INSOMNIA Last administered on 07/26/18 20:46; Admin Dose 5 MG; Start 07/24/18 at 17:00 Aspirin (Aspirin) 81 mg DAILY PO Last administered on 07/26/18 08:22; Admin Dose 81 MG; Start 07/26/18 at 09:00 Atorvastatin Calcium (Lipitor) 80 mg HS PO Last administered on 07/26/18 20:46; Admin Dose 80 MG; Start 07/25/18 at 21:00 Nitroglycerin (Nitroglycerin (Sl Tab) 0.4 Mg) 1 tab Q5M PRN SL ANGINA Last administered on 07/26/18 02:42; Admin Dose 1 TAB; Start 07/25/18 at 18:30 Heparin Sodium (Porcine) (Heparin (5000 Units/1ml)) 5,000 unit Q8 SC Last administered on 07/27/18 05:43; Admin Dose 5,000 UNIT; Start 07/26/18 at 14:00 Metoprolol Tartrate (Lopressor) 50 mg BID PO Last administered on 07/26/18 20:46; Admin Dose 50 MG; Start 07/26/18 at 21:00 Isosorbide Mononitrate (Imdur) 30 mg DAILY PO Last administered on 07/26/18at 14:36; Admin Dose 30 MG; Start 07/26/18 at 14:00 Clopidogrel Bisulfate (plaVIX) 75 mg DAILY PO Last administered on 07/26/18at 14:35; Admin Dose 75 MG; Start 07/26/18 at 14:00 Lisinopril (Zestril) 40 mg DAILY PO Last administered on 07/26/18 14:36; Admin Dose 40 MG; Start 07/26/18 at 14:00 ALISE AGUILAR V[employer] Jul 27, 2018 09:11
[2018-07-27] MEDS ORDERED: ALBUTEROL/IPRATROPIUM (NEB) 3 ML AMP HHN STA (09:16)
[2018-07-27] MEDS: ISOSORBIDE MONONITRATE(SR)30 MG TAB PO SCH (09:20)
[2018-07-27] MEDS: ASPIRIN 81 MG TAB PO SCH (09:20)
[2018-07-27] MEDS: LISINOPRIL 20 MG TAB PO SCH (09:20)
[2018-07-27] MEDS: NITROGLYCERIN (SL) 0.4 MG TAB SL PRN (09:22)
[2018-07-27] MEDS ORDERED: HEPARIN 1000 UNITS/ML 10 ML INJ IV ONE (09:30)
[2018-07-27] MEDS ORDERED: MAGNESIUM SULFATE 1 GM/D5W 100 ML IVPB ONE (09:30)
[2018-07-27] MEDS ORDERED: FUROSEMIDE 40 MG INJ IV ONE (09:30)
[2018-07-27] MEDS ORDERED: HEPARIN 1000 UNITS/ML 10 ML INJ IV PRN (09:30)
[2018-07-27] MEDS ORDERED: ALBUTEROL/IPRATROPIUM (NEB) 3 ML AMP HHN PRN (09:30)
[2018-07-27] MEDS: CLOPIDOGREL 75 MG TAB PO SCH (09:33)
[2018-07-27] MEDS: METOPROLOL 50 MG TAB PO SCH ×2 (09:33→21:27)
[2018-07-27] MEDS: HEPARIN 25000 UNITS/250 ML 250 ML IV SCH (09:50)
[2018-07-27] MEDS: CEFTRIAXONE 1 GM/50 ML (PMX) 50 ML IVPB SCH (11:01)
[2018-07-27] MEDS: hydrALAzine 20 MG INJ IV PRN (12:37)
--- NOTE | 2018-07-27 13:09 | CONS ---
Assessment/Plan Assessment/Plan Hospital Course (Demo Recall) 1. NSTEMI-mildly positive troponin. EF 55% by echo this admit 2. Abnormal electrocardiogram with right bundle branch block with nonspecific ST-T wave changes. 3. Hypertension-labile 4. Dyslipidemia. 5. Pancreatitis. 6. Thyroid nodule. Recc: -Tele -serial ecg's -Continue asa/plavix -Continue BB/zestril s/p increase. Follow BP closely -Continue imdur -Continue heparin for now -[facility] tomorrow at 12:30 pm Consultation Date/Type/Reason Admit Date/Time Jul 23, 2018 at 00:37 Initial Consult Date 07/24/18 Type of Consult Cardiology Reason for Consultation Nstemi Requesting Provider: CALVIN MAZA Date/Time of Note DATE: 07/27/18 TIME: 13:02 Exam/Review of Systems Vital Signs Vitals Vital Signs Date Temp Pulse Resp B/P (MAP) Pulse Ox O2 O2 Flow FiO2 Time Delivery Rate 07/27/18 68 12:02 07/27/18 98.1 20 186/78 100 11:33 (114) 07/27/18 2.0 11:20 07/27/18 Nasal 11:20 Cannula Intake and Output 07/26/18 07/26/18 07/27/18 1515:00 23:00 07:00 IntakeIntake Total 1000 ml 2300 ml 900 ml BalanceBalance 1000 ml 2300 ml 900 ml Exam Exam Review of Systems: CONSTITUTIONAL: No fevers, chills. PULMONARY: No sob CARDIOVASCULAR: No chest pain/palpitations GASTROINTESTINAL: No nausea/vomiting. GENITOURINARY: No hematuria/dysuria. MUSCULOSKELETAL: No myagias/arthalgias. PSYCHIATRIC: The patient denies depression. NEUROLOGIC: No weakness Constitutional: alert Psych: no complaints Head: normocephalic ENMT: mucosa pink and moist Neck: supple, jvd (9 cm water) Respiratory: diminished breath sounds Cardiovascular: regular rate and rhythm Gastrointestinal: soft, non-tender Musculoskeletal: muscle tone (normal) Extremities: edema (none) Labs Result Diagram: 07/27/18 0936 07/27/18 0449 Results 24hrs Laboratory Tests Test 07/26/18 14:24 07/27/18 04:49 07/27/18 09:36 B-Type Natriuretic Peptide 2800 H White Blood Count 6.4 # 6.8 Red Blood Count 3.49 L 3.72 L Hemoglobin 9.9 L 10.5 L Hematocrit 29.2 L 31.3 L Mean Corpuscular Volume 83.7 84.1 Mean Corpuscular Hemoglobin 28.4 L 28.2 L Mean Corpuscular Hemoglobin Concent 33.9 33.5 Red Cell Distribution Width 14.9 H 15.2 H Platelet Count 284 304 Mean Platelet Volume 10.4 10.1 Immature Granulocytes % 1.100 H 1.200 H Neutrophils % 53.5 56.1 Lymphocytes % 31.7 28.6 Monocytes % 8.3 8.4 Eosinophils % 4.9 5.1 Basophils % 0.5 0.6 Nucleated Red Blood Cells % 0.0 0.0 Immature Granulocytes # 0.070 H 0.080 H Neutrophils # 3.4 3.8 Lymphocytes # 2.0 2.0 Monocytes # 0.5 0.6 Eosinophils # 0.3 0.4 Basophils # 0.0 0.0 Nucleated Red Blood Cells # 0.0 0.0 Sodium Level 135 Potassium Level 3.1 L Chloride Level 104 Carbon Dioxide Level 21 Anion Gap 10 Blood Urea Nitrogen 4 L Creatinine 0.59 Est Glomerular Filtrat Rate mL/min Glucose Level 119 Calcium Level 8.9 Magnesium Level 1.7 Troponin I 0.116 Lipase 403 H Prothrombin Time 13.2 Prothrombin Time Ratio 1.0 INR International Normalized Ratio 0.99 Activated Partial Thromboplast Time 35.2 H Medications Medications Current Medications IV Flush (NS 3 ml) 3 ml PER PROTOCOL IV ; Start 07/23/18 at 02:30 Ondansetron HCl (Zofran Inj) 4 mg Q6H PRN IV NAUSEA/VOMITING; Start 07/23/18 at 02:30 Morphine Sulfate (morphine) 2 mg Q4H PRN IV .SEVERE PAIN 7-10 Last administered on 07/27/18at 00:19; Admin Dose 2 MG; Start 07/23/18 at 02:30 Acetaminophen (Tylenol Tab) 650 mg Q6H PRN PO MILD PAIN(1-3)OR ELEVATED TEMP Last administered on 07/27/18at 02:07; Admin Dose 650 MG; Start 07/23/18 at 12:30 Docusate Sodium (Colace) 100 mg BID PO Last administered on 07/26/18at 08:22; Admin Dose 100 MG; Start 07/23/18 at 21:00 Pantoprazole (Protonix Iv) 40 mg DAILY@06 IV Last administered on 07/27/18 05: 37; Admin Dose 40 MG; Start 07/24/18 at 06:00 Senna (Senokot) 1 tab BID PO Last administered on 07/26/18 08:22; Admin Dose 1 TAB; Start 07/24/18 at 09:30 Hydralazine HCl (Apresoline) 10 mg Q6H PRN IV sbp>160mmhg Last administered on 07/27/18 12:37; Admin Dose 10 MG; Start 07/24/18 at 09:30 Ceftriaxone Sodium 50 ml @ 100 mls/hr Q24H IVPB Last administered on 07/27/18 11:01; Admin Dose 100 MLS/HR; Start 07/24/18 at 10:00 Hydromorphone HCl (Dilaudid) 0.5 mg Q3H PRN IV SEVERE PAIN LEVEL 7-10 Last administered on 07/27/18 05:45; Admin Dose 0.5 MG; Start 07/24/18 at 09:30 Zolpidem Tartrate (Ambien) 5 mg HS PRN PO INSOMNIA Last administered on 07/26/18 20:46; Admin Dose 5 MG; Start 07/24/18 at 17:00 Aspirin (Aspirin) 81 mg DAILY PO Last administered on 07/27/18 09:20; Admin Dose 81 MG; Start 07/26/18 at 09:00 Atorvastatin Calcium (Lipitor) 80 mg HS PO Last administered on 07/26/18 20:46; Admin Dose 80 MG; Start 07/25/18 at 21:00 Nitroglycerin (Nitroglycerin (Sl Tab) 0.4 Mg) 1 tab Q5M PRN SL ANGINA Last administered on 07/27/18 09:22; Admin Dose 1 TAB; Start 07/25/18 at 18:30 Metoprolol Tartrate (Lopressor) 50 mg BID PO Last administered on 07/27/18 09:33; Admin Dose 50 MG; Start 07/26/18 at 21:00 Isosorbide Mononitrate (Imdur) 30 mg DAILY PO Last administered on 07/27/18 09:20; Admin Dose 30 MG; Start 07/26/18 at 14:00 Clopidogrel Bisulfate (plaVIX) 75 mg DAILY PO Last administered on 07/27/18at 09:33; Admin Dose 75 MG; Start 07/26/18 at 14:00 Lisinopril (Zestril) 40 mg DAILY PO Last administered on 07/27/18at 09:20; Admin Dose 40 MG; Start 07/26/18 at 14:00 Heparin Sodium (Porcine) (Heparin (1000 Units/ml)) 4,000 unit PER PROTOCOL PRN IV aPTT<47; Start 07/27/18 at 09:30 Heparin Sodium (Porcine) 250 ml @ 9.5 mls/hr PER PROTOCOL IV Last administered on 07/27/18at 09:50; Admin Dose 9.5 MLS/HR; Start 07/27/18 at 10:00 Albuterol/ Ipratropium (Duoneb) 3 ml Q2H RESP THERAPY PRN HHN sob; Start 07/27/18 at 09:30 VENKATA LEDBETTER Jul 27, 2018 13:09
--- NOTE | 2018-07-27 13:22 | PN ---
Date/Time of Note Date/Time of Note DATE: 07/27/18 TIME: 13:17 Assessment/Plan VTE Prophylaxis Risk score (from Nsg)>0 risk: 4 SCD applied (from Nsg): Yes Pharmacological prophylaxis: other (scds) Lines/Catheters IV Catheter Type (from Nrsg): Peripheral IV Assessment/Plan Hospital Course Assessment/Plan Assessment: Gallstone pancreatitis Rule out choledocholithiasis -filling defect in distal common bile duct on MRCP Transaminitis Leukocytosis Epigastric pain Hypertension Hyperlipidemia Arthritis Chest pain with elevated troponin - r/o NE Plan: Clear liquid diet Continue IV fluids Pain management ERCP on hold until cleared to have procedure Will need cardiac clearance in light of chest pain with elevated troponin prior to ERCP. Monitor Lipase - trending down Plan for cardiac cath tomorrow Patient seen in collaboration with Dr. Aguialr Subjective: No over night events, cardiac work-up pending Pt denies abd pain, family at bedside. Pt does c/o headache, elevate bp noted Physical exam: GENERAL: Obese, alert & oriented x 3, in no acute distress SKIN: No lesions HEAD: Normocephalic, atraumatic, no tenderness. EYES: Pupils equal reactive to light, no discharge. EARS/NOSE AND THROAT: Ears normal, nose normal, oropharynx normal. NECK: Supple, no masses CHEST: Inspection within normal limits. CARDIOVASCULAR: Heart: Regular rate and rhythm RESPIRATORY: Lungs clear to auscultation GASTROINTESTINAL AND LIVER: Abdomen: Soft, epigastric tenderness with deep palpation 1-2/10, non-distended, no hernias, no masses, no organomegaly, no ascites, no guarding, no rebound tenderness, normoactive bowel sounds. Rectal: Deferred. Result Diagram: 07/27/18 0936 07/27/18 0449 Results 24hrs Laboratory Tests Test 07/26/18 14:24 07/27/18 04:49 07/27/18 09:36 B-Type Natriuretic Peptide 2800 H White Blood Count 6.4 # 6.8 Red Blood Count 3.49 L 3.72 L Hemoglobin 9.9 L 10.5 L Hematocrit 29.2 L 31.3 L Mean Corpuscular Volume 83.7 84.1 Mean Corpuscular Hemoglobin 28.4 L 28.2 L Mean Corpuscular Hemoglobin Concent 33.9 33.5 Red Cell Distribution Width 14.9 H 15.2 H Platelet Count 284 304 Mean Platelet Volume 10.4 10.1 Immature Granulocytes % 1.100 H 1.200 H Neutrophils % 53.5 56.1 Lymphocytes % 31.7 28.6 Monocytes % 8.3 8.4 Eosinophils % 4.9 5.1 Basophils % 0.5 0.6 Nucleated Red Blood Cells % 0.0 0.0 Immature Granulocytes # 0.070 H 0.080 H Neutrophils # 3.4 3.8 Lymphocytes # 2.0 2.0 Monocytes # 0.5 0.6 Eosinophils # 0.3 0.4 Basophils # 0.0 0.0 Nucleated Red Blood Cells # 0.0 0.0 Sodium Level 135 Potassium Level 3.1 L Chloride Level 104 Carbon Dioxide Level 21 Anion Gap 10 Blood Urea Nitrogen 4 L Creatinine 0.59 Est Glomerular Filtrat Rate mL/min Glucose Level 119 Calcium Level 8.9 Magnesium Level 1.7 Troponin I 0.116 Lipase 403 H Prothrombin Time 13.2 Prothrombin Time Ratio 1.0 INR International Normalized Ratio 0.99 Activated Partial Thromboplast Time 35.2 H Exam/Review of Systems Exam Vitals Vital Signs Date Temp Pulse Resp B/P (MAP) Pulse Ox O2 O2 Flow FiO2 Time Delivery Rate 07/27/18 68 12:02 07/27/18 98.1 20 186/78 100 11:33 (114) 07/27/18 2.0 11:20 07/27/18 Nasal 11:20 Cannula Intake and Output 07/26/18 07/26/18 07/27/18 1515:00 23:00 07:00 IntakeIntake Total 1000 ml 2300 ml 900 ml BalanceBalance 1000 ml 2300 ml 900 ml Results Results 24hrs Laboratory Tests Test 07/26/18 14:24 07/27/18 04:49 07/27/18 09:36 B-Type Natriuretic Peptide 2800 H White Blood Count 6.4 # 6.8 Red Blood Count 3.49 L 3.72 L Hemoglobin 9.9 L 10.5 L Hematocrit 29.2 L 31.3 L Mean Corpuscular Volume 83.7 84.1 Mean Corpuscular Hemoglobin 28.4 L 28.2 L Mean Corpuscular Hemoglobin Concent 33.9 33.5 Red Cell Distribution Width 14.9 H 15.2 H Platelet Count 284 304 Mean Platelet Volume 10.4 10.1 Immature Granulocytes % 1.100 H 1.200 H Neutrophils % 53.5 56.1 Lymphocytes % 31.7 28.6 Monocytes % 8.3 8.4 Eosinophils % 4.9 5.1 Basophils % 0.5 0.6 Nucleated Red Blood Cells % 0.0 0.0 Immature Granulocytes # 0.070 H 0.080 H Neutrophils # 3.4 3.8 Lymphocytes # 2.0 2.0 Monocytes # 0.5 0.6 Eosinophils # 0.3 0.4 Basophils # 0.0 0.0 Nucleated Red Blood Cells # 0.0 0.0 Sodium Level 135 Potassium Level 3.1 L Chloride Level 104 Carbon Dioxide Level 21 Anion Gap 10 Blood Urea Nitrogen 4 L Creatinine 0.59 Est Glomerular Filtrat Rate mL/min Glucose Level 119 Calcium Level 8.9 Magnesium Level 1.7 Troponin I 0.116 Lipase 403 H Prothrombin Time 13.2 Prothrombin Time Ratio 1.0 INR International Normalized Ratio 0.99 Activated Partial Thromboplast Time 35.2 H Medications Medication Current Medications IV Flush (NS 3 ml) 3 ml PER PROTOCOL IV ; Start 07/23/18 at 02:30 Ondansetron HCl (Zofran Inj) 4 mg Q6H PRN IV NAUSEA/VOMITING; Start 07/23/18 at 02:30 Morphine Sulfate (morphine) 2 mg Q4H PRN IV .SEVERE PAIN 7-10 Last administered on 07/27/18at 00:19; Admin Dose 2 MG; Start 07/23/18 at 02:30 Acetaminophen (Tylenol Tab) 650 mg Q6H PRN PO MILD PAIN(1-3)OR ELEVATED TEMP Last administered on 07/27/18at 02:07; Admin Dose 650 MG; Start 07/23/18 at 12:30 Docusate Sodium (Colace) 100 mg BID PO Last administered on 07/26/18at 08:22; Admin Dose 100 MG; Start 07/23/18 at 21:00 Pantoprazole (Protonix Iv) 40 mg DAILY@06 IV Last administered on 07/27/18at 05:37; Admin Dose 40 MG; Start 07/24/18 at 06:00 Senna (Senokot) 1 tab BID PO Last administered on 07/26/18at 08:22; Admin Dose 1 TAB; Start 07/24/18 at 09:30 Hydralazine HCl (Apresoline) 10 mg Q6H PRN IV sbp>160mmhg Last administered on 07/27/18 12:37; Admin Dose 10 MG; Start 07/24/18 at 09:30 Ceftriaxone Sodium 50 ml @ 100 mls/hr Q24H IVPB Last administered on 07/27/18 11:01; Admin Dose 100 MLS/HR; Start 07/24/18 at 10:00 Hydromorphone HCl (Dilaudid) 0.5 mg Q3H PRN IV SEVERE PAIN LEVEL 7-10 Last administered on 07/27/18 05:45; Admin Dose 0.5 MG; Start 07/24/18 at 09:30 Zolpidem Tartrate (Ambien) 5 mg HS PRN PO INSOMNIA Last administered on 07/26/18 20:46; Admin Dose 5 MG; Start 07/24/18 at 17:00 Aspirin (Aspirin) 81 mg DAILY PO Last administered on 07/27/18 09:20; Admin Dose 81 MG; Start 07/26/18 at 09:00 Atorvastatin Calcium (Lipitor) 80 mg HS PO Last administered on 07/26/18 20:46; Admin Dose 80 MG; Start 07/25/18 at 21:00 Nitroglycerin (Nitroglycerin (Sl Tab) 0.4 Mg) 1 tab Q5M PRN SL ANGINA Last administered on 07/27/18 09:22; Admin Dose 1 TAB; Start 07/25/18 at 18:30 Metoprolol Tartrate (Lopressor) 50 mg BID PO Last administered on 07/27/18 09:33; Admin Dose 50 MG; Start 07/26/18 at 21:00 Isosorbide Mononitrate (Imdur) 30 mg DAILY PO Last administered on 07/27/18 09:20; Admin Dose 30 MG; Start 07/26/18 at 14:00 Clopidogrel Bisulfate (plaVIX) 75 mg DAILY PO Last administered on 07/27/18 09:33; Admin Dose 75 MG; Start 07/26/18 at 14:00 Lisinopril (Zestril) 40 mg DAILY PO Last administered on 07/27/18 09:20; Admin Dose 40 MG; Start 07/26/18 at 14:00 Heparin Sodium (Porcine) (Heparin (1000 Units/ml)) 4,000 unit PER PROTOCOL PRN IV aPTT<47; Start 07/27/18 at 09:30 Heparin Sodium (Porcine) 250 ml @ 9.5 mls/hr PER PROTOCOL IV Last administered on 07/27/18at 09:50; Admin Dose 9.5 MLS/HR; Start 07/27/18 at 10:00 Albuterol/ Ipratropium (Duoneb) 3 ml Q2H RESP THERAPY PRN HHN sob; Start 07/27/18 at 09:30 Diazepam (Valium) 5 mg OC ONCE PO ; Start 07/28/18 at 09:00; Stop 07/28/18 at 09:01; Status UNV Diphenhydramine HCl (Benadryl) 50 mg OC ONCE PO ; Start 07/28/18 at 09:00; Stop 07/28/18 at 09:01; Status UNV ELIZABETH REYNAGA Jul 27, 2018 13:22
--- NOTE | 2018-07-27 15:40 | RADRPT ---
Vent Rate: 66 bpm RR Interval: 0 msec MA Interval: 196 msec QRS Duration: 138 msec QT Interval: 472 msec QTC Interval: 494 msec P-R-T [place]: 60 - 79 - 46 degrees Normal sinus rhythm Right bundle branch block Abnormal ECG Electronically Signed By: Willian Godinez
--- NOTE | 2018-07-27 15:50 | RADRPT ---
Vent Rate: 72 bpm RR Interval: 0 msec GA Interval: 194 msec QRS Duration: 140 msec QT Interval: 460 msec QTC Interval: 503 msec P-R-T [place]: 63 - 59 - 38 degrees Normal sinus rhythm Right bundle branch block Abnormal ECG Electronically Signed By: Willian Godinez
--- NOTE | 2018-07-27 16:17 | RADRPT ---
Vent Rate: 76 bpm RR Interval: 0 msec NV Interval: 196 msec QRS Duration: 138 msec QT Interval: 452 msec QTC Interval: 508 msec P-R-T [place]: 60 - 62 - 50 degrees Normal sinus rhythm Right bundle branch block Abnormal ECG Electronically Signed By: Willian Godinez
[2018-07-27] MEDS ORDERED: ALPRAZOLAM 0.5 MG TAB PO PRN (16:30)
[2018-07-27] MEDS: ATORVASTATIN 80 MG TAB PO SCH (21:24)
[2018-07-27] MEDS: ZOLPIDEM 5 MG TAB PO PRN (23:49)
[2018-07-28] VITALS (35 sets, daily range): BP systolic 125–184; BP diastolic 61–79; PULSE 62–100; RESP 10–26
[2018-07-28] MEDS: PANTOPRAZOLE 40 MG INJ IV SCH (06:36)
--- NOTE | 2018-07-28 08:20 | CONS ---
Consult Date/Type/Reason Admit Date/Time Jul 23, 2018 at 00:37 Initial Consult Date 07/24/18 Requesting Provider: CALVIN MAZA Date/Time of Note DATE: 07/28/18 TIME: 08:17 Subjective NO acute events - BP in good range - no chest pain now. ROS: No fever, no chills, no nausea, no vomiting, no diarrhea/constipation No recent weight changes - improved abdominal pain Objective Vitals Vital Signs Date Temp Pulse Resp B/P (MAP) Pulse Ox O2 O2 Flow FiO2 Time Delivery Rate 07/28/18 98.2 73 18 154/68 96 07:47 (96) 07/28/18 2.0 28 01:50 07/27/18 Nasal 16:20 Cannula Intake and Output 07/27/18 07/27/18 07/28/18 1414:59 22:59 06:59 IntakeIntake Total 250 ml 200 ml BalanceBalance 250 ml 200 ml Exam General: WN/WD/NAD, AOx 2-3 HEENT: Unicetric/atraumatic/EOMI ( follow commands) NECK: JVD elevated, no thyromegaly Lymph: no lymphadenopathy HEART: regular with no S3, II/ systolic murmur at apex, PMI L LUNGS: Coarse sounds ABD: soft, NT, ND, +BS : Intact Neuro: non focal SKIN: chronic changes EXT: trace edema Results/Medications Result Diagram: 07/27/18 0936 07/27/18 0449 Results 24 hrs Laboratory Tests Test 07/27/18 09:36 07/27/18 16:15 07/27/18 19:59 07/27/18 23:24 White Blood Count 6.8 Red Blood Count 3.72 L Hemoglobin 10.5 L Hematocrit 31.3 L Mean Corpuscular 84.1 Volume Mean Corpuscular 28.2 L Hemoglobin Mean Corpuscular 33.5 Hemoglobin Concent Red Cell 15.2 H Distribution Width Platelet Count 304 Mean Platelet Volume 10.1 Immature 1.200 H Granulocytes % Neutrophils % 56.1 Lymphocytes % 28.6 Monocytes % 8.4 Eosinophils % 5.1 Basophils % 0.6 Nucleated Red Blood 0.0 Cells % Immature 0.080 H Granulocytes # Neutrophils # 3.8 Lymphocytes # 2.0 Monocytes # 0.6 Eosinophils # 0.4 Basophils # 0.0 Nucleated Red Blood 0.0 Cells # Prothrombin Time 13.2 Prothrombin Time 1.0 Ratio INR International 0.99 Normalized Ratio Activated 35.2 H > 180.0 *H 89.2 *H 38.4 H Partial Thromboplast Time Home Meds Reported Medications Naproxen* (Naproxen*) 125 Mg/5 Ml Oral.susp, 500 MG PO BID, ML 07/23/18 Sennosides* (Senna Lax*) 8.6 Mg Tablet, 1 TAB PO BID, TAB 07/23/18 Tramadol Hcl* (Ultram*) 50 Mg Tablet, 50 MG PO Q6H PRN for PAIN, TAB 07/23/18 Magnesium Oxide* (Mag-Oxide*) 400 Mg Tablet, 400 MG PO QWED AND FRIDAY, TAB 07/23/18 Simvastatin (Simvastatin) 40 Mg Tablet, 40 MG PO HS, TAB 10/25/14 Lisinopril* (Lisinopril*) 10 Mg Tablet, 10 MG PO BID, TAB 10/25/14 Discontinued Reported Medications Ondansetron (Ondansetron Odt) 4 Mg Tab.rapdis, 4 MG PO Q6H PRN for NAUSEA AND/OR VOMITING, TAB 07/23/18 Discontinued Scripts Gabapentin* (Gabapentin*) 100 Mg Capsule, 100 MG PO TID, #90 CAP 0 Refills Prov:AUBRIE VALDERRAMA MD 10/26/14 Meclizine Hcl* (Meclizine Hcl*) 12.5 Mg Tab, 12.5 MG PO TID PRN for dizziness, #30 1 Refill Prov:AUBRIE VALDERRAMA MD 10/26/14 [Lidocaine] 1 PATCH PATCH No Conflict Check, 1 PATCH TD DAILY, #30 PATCH 1 Refill Prov:AUBRIE VALDERRAMA MD 10/26/14 Medications Current Medications IV Flush (NS 3 ml) 3 ml PER PROTOCOL IV ; Start 07/23/18 at 02:30 Ondansetron HCl (Zofran Inj) 4 mg Q6H PRN IV NAUSEA/VOMITING; Start 07/23/18 at 02:30 Morphine Sulfate (morphine) 2 mg Q4H PRN IV .SEVERE PAIN 7-10 Last administered on 07/27/18at 00:19; Admin Dose 2 MG; Start 07/23/18 at 02:30 Acetaminophen (Tylenol Tab) 650 mg Q6H PRN PO MILD PAIN(1-3)OR ELEVATED TEMP Last administered on 07/27/18 02:07; Admin Dose 650 MG; Start 07/23/18 at 12:30 Docusate Sodium (Colace) 100 mg BID PO Last administered on 07/27/18 21:24; Admin Dose 100 MG; Start 07/23/18 at 21:00 Pantoprazole (Protonix Iv) 40 mg DAILY@06 IV Last administered on 07/28/18 06:36; Admin Dose 40 MG; Start 07/24/18 at 06:00 Senna (Senokot) 1 tab BID PO Last administered on 07/27/18 21:27; Admin Dose 1 TAB; Start 07/24/18 at 09:30 Hydralazine HCl (Apresoline) 10 mg Q6H PRN IV sbp>160mmhg Last administered on 07/27/18 12:37; Admin Dose 10 MG; Start 07/24/18 at 09:30 Ceftriaxone Sodium 50 ml @ 100 mls/hr Q24H IVPB Last administered on 07/27/18 11:01; Admin Dose 100 MLS/HR; Start 07/24/18 at 10:00 Hydromorphone HCl (Dilaudid) 0.5 mg Q3H PRN IV SEVERE PAIN LEVEL 7-10 Last administered on 07/27/18 22:15; Admin Dose 0.5 MG; Start 07/24/18 at 09:30 Zolpidem Tartrate (Ambien) 5 mg HS PRN PO INSOMNIA Last administered on 07/27/18 23:49; Admin Dose 5 MG; Start 07/24/18 at 17:00 Aspirin (Aspirin) 81 mg DAILY PO Last administered on 07/27/18 09:20; Admin Dose 81 MG; Start 07/26/18 at 09:00 Atorvastatin Calcium (Lipitor) 80 mg HS PO Last administered on 07/27/18 21:24; Admin Dose 80 MG; Start 07/25/18 at 21:00 Nitroglycerin (Nitroglycerin (Sl Tab) 0.4 Mg) 1 tab Q5M PRN SL ANGINA Last administered on 07/27/18 09:22; Admin Dose 1 TAB; Start 07/25/18 at 18:30 Metoprolol Tartrate (Lopressor) 50 mg BID PO Last administered on 07/27/18at 21:27; Admin Dose 50 MG; Start 07/26/18 at 21:00 Isosorbide Mononitrate (Imdur) 30 mg DAILY PO Last administered on 07/27/18at 09:20; Admin Dose 30 MG; Start 07/26/18 at 14:00 Clopidogrel Bisulfate (plaVIX) 75 mg DAILY PO Last administered on 07/27/18at 09:33; Admin Dose 75 MG; Start 07/26/18 at 14:00 Lisinopril (Zestril) 40 mg DAILY PO Last administered on 07/27/18 09:20; Admin Dose 40 MG; Start 07/26/18 at 14:00 Heparin Sodium (Porcine) (Heparin (1000 Units/ml)) 4,000 unit PER PROTOCOL PRN IV aPTT<47 Last administered on 07/28/18at 01:39; Admin Dose 4,000 UNIT; Start 07/27/18 at 09:30 Heparin Sodium (Porcine) 250 ml @ 9.5 mls/hr PER PROTOCOL IV Last administered on 07/27/18at 09:50; Admin Dose 9.5 MLS/HR; Start 07/27/18 at 10:00 Albuterol/ Ipratropium (Duoneb) 3 ml Q2H RESP THERAPY PRN HHN sob; Start 07/27/18 at 09:30 Diazepam (Valium) 5 mg OC ONCE PO ; Start 07/28/18 at 09:00; Stop 07/28/18 at 09:01 Diphenhydramine HCl (Benadryl) 50 mg OC ONCE PO ; Start 07/28/18 at 09:00; Stop 07/28/18 at 09:01 Alprazolam (Xanax) 0.5 mg Q12H PRN PO ANXIETY; Start 07/27/18 at 16:30 Assessment/Plan Hospital Course (Demo Recall) 1. NSTEMI-mildly positive troponin. EF 55% by echo this admit - no CP now - conservative Rx planned currently. 2. Abnormal electrocardiogram with right bundle branch block with nonspecific ST-T wave changes.No CP. 3. Hypertension-labile - con't to monitor with treating to goal. 4. Dyslipidemia - treated. 5. Pancreatitis - con't to follow, GI on the case. 6. Thyroid nodule. DYLAN NINO MD Jul 28, 2018 08:20
[2018-07-28] MEDS ORDERED: DIAZEPAM 5 MG TAB PO ONE (09:00)
[2018-07-28] MEDS: SENNA TAB PO SCH ×2 (09:00→21:00)
[2018-07-28] MEDS: ASPIRIN 81 MG TAB PO SCH (09:00)
[2018-07-28] MEDS: DOCUSATE SODIUM 100 MG CAP PO SCH ×2 (09:00→21:00)
[2018-07-28] MEDS ORDERED: DIPHENHYDRAMINE 50 MG CAP PO ONE (09:00)
[2018-07-28] MEDS: ISOSORBIDE MONONITRATE(SR)30 MG TAB PO SCH (09:00)
[2018-07-28] MEDS: LISINOPRIL 20 MG TAB PO SCH (09:00)
[2018-07-28] MEDS: CLOPIDOGREL 75 MG TAB PO SCH (09:00)
[2018-07-28] MEDS: METOPROLOL 50 MG TAB PO SCH ×2 (09:00→21:56)
[2018-07-28] MEDS: HEPARIN 25000 UNITS/250 ML 250 ML IV SCH (09:36)
[2018-07-28] MEDS: CEFTRIAXONE 1 GM/50 ML (PMX) 50 ML IVPB SCH (09:42)
--- NOTE | 2018-07-28 10:00 | PN ---
Date/Time of Note Date/Time of Note DATE: 07/28/18 TIME: 09:55 Assessment/Plan VTE Prophylaxis Risk score (from Ns)>0 risk: 4 SCD applied (from Ns): Yes Pharmacological prophylaxis: heparin Lines/Catheters IV C[facility]ter Type (from [facility]): Peripheral IV Assessment/Plan Hospital Course SUBJECTIVE: No further chest pain, shortness of breath. OBJECTIVE: Vital signs-see below PHYSICAL EXAM: Constitutional: Well-developed, well-nourished elderly female, not in acute distress. HEENT: Head atraumatic and normocephalic. Eyes: Extraocular muscles intact. Anicteric sclerae. Pupils equal bilaterally, reactive to light. NECK: Supple without lymph node. CHEST: Clear and good breath sounds equally. No wheezing. No rhonchi. HEART: S1, S2. Regular rate and rhythm. ABDOMEN: abdomen soft /non tender, with no rebound tenderness. Bowel sounds were present. EXTREMITIES: Full range of motion in all the extremities. No cyanosis, clubbing or edema. NEUROLOGIC: Alert and oriented x3. No focal deficit. No sensory deficit. PSYCHOSOCIAL: In a good mood. No signs of depression. INTEGUMENTARY: Moist mucous membranes. Good skin turgor, intact. ASSESSMENT AND PLAN:37-year-old female with a history of hypertension, anemia, hepatic steatosis, admitted with periumbilical/right-sided abdominal pain, found to have acute biliary pancreatitis, now with chest pain/troponin leak. 1. Non-ST elevated myocardial infarction. -on schedule for cardiac catheterization today. -cont.atc, aspirin/plavix/high intensity statin/BB. - PRN nitroglycerin, morphine for pain. -Follow-up cardiology recommendations. 2. Diastolic dysfunction. -stable -cont BB 3. Acute biliary pancreatitis. -This is now resolved. Patient needs ERCP, when medically stable. 4. Biliary ductal dilatation, possible choledocholithiasis. -need eventual ERCP when medically stable. 5. Essential hypertension. -Stabilizing. Nitrates has been added. We will continue beta-blockers and JOSEPH inhibitors. Dosing per cardiology. 6. Hyperlipidemia. -Continue statin. 7. Incidental finding of left adnexal mass, likely benign. -Recommend follow-up CT in 3 months as outpatient. 8. Anemia, likely chronic. -Stable H&H. Continue to monitor. 9. Obesity with a BMI 32.3. -Lifestyle changes advised. DVT prophylaxis: Heparin PUD prophylaxis: Protonix. Diet; clear diet. If no plan for cardiac cath, will advance diet. Disposition: Follow-up cardiology recommendations. Patient was seen in collaboration with Dr. MAZA Result Diagram: 07/28/18 0758 07/28/18 0758 Results 24hrs Laboratory Tests Test 07/27/18 16:15 07/27/18 19:59 07/27/18 23:24 07/28/18 07:58 Activated > 180.0 *H 89.2 *H 38.4 H 70.7 *H Partial Thromboplast Time White Blood Count 7.0 Red Blood Count 3.94 L Hemoglobin 11.1 L Hematocrit 33.1 L Mean Corpuscular 84.0 Volume Mean Corpuscular 28.2 L Hemoglobin Mean Corpuscular 33.5 Hemoglobin Concent Red Cell 15.0 H Distribution Width Platelet Count 327 Mean Platelet Volume 10.2 Immature 1.600 H Granulocytes % Neutrophils % 52.1 Lymphocytes % 29.9 Monocytes % 11.1 H Eosinophils % 4.7 Basophils % 0.6 Nucleated Red Blood 0.0 Cells % Immature 0.110 H Granulocytes # Neutrophils # 3.7 Lymphocytes # 2.1 Monocytes # 0.8 Eosinophils # 0.3 Basophils # 0.0 Nucleated Red Blood 0.0 Cells # Sodium Level 138 Potassium Level 3.6 Chloride Level 102 Carbon Dioxide Level 26 Anion Gap 10 Blood Urea Nitrogen 7 Creatinine 0.64 Est Glomerular Filtrat Rate mL/min Glucose Level 92 Calcium Level 9.1 Magnesium Level 1.9 Exam/Review of Systems Exam Vitals Vital Signs Date Temp Pulse Resp B/P (MAP) Pulse Ox O2 O2 Flow FiO2 Time Delivery Rate 07/28/18 72 08:00 07/28/18 98.2 18 154/68 96 07:47 (96) 07/28/18 2.0 28 01:50 07/27/18 Nasal 16:20 Cannula Intake and Output 07/27/18 07/27/18 07/28/18 1515:00 23:00 07:00 IntakeIntake Total 250 ml 200 ml BalanceBalance 250 ml 200 ml Results Results 24hrs Laboratory Tests Test 07/27/18 16:15 07/27/18 19:59 07/27/18 23:24 07/28/18 07:58 Activated > 180.0 *H 89.2 *H 38.4 H 70.7 *H Partial Thromboplast Time White Blood Count 7.0 Red Blood Count 3.94 L Hemoglobin 11.1 L Hematocrit 33.1 L Mean Corpuscular 84.0 Volume Mean Corpuscular 28.2 L Hemoglobin Mean Corpuscular 33.5 Hemoglobin Concent Red Cell 15.0 H Distribution Width Platelet Count 327 Mean Platelet Volume 10.2 Immature 1.600 H Granulocytes % Neutrophils % 52.1 Lymphocytes % 29.9 Monocytes % 11.1 H Eosinophils % 4.7 Basophils % 0.6 Nucleated Red Blood 0.0 Cells % Immature 0.110 H Granulocytes # Neutrophils # 3.7 Lymphocytes # 2.1 Monocytes # 0.8 Eosinophils # 0.3 Basophils # 0.0 Nucleated Red Blood 0.0 Cells # Sodium Level 138 Potassium Level 3.6 Chloride Level 102 Carbon Dioxide Level 26 Anion Gap 10 Blood Urea Nitrogen 7 Creatinine 0.64 Est Glomerular Filtrat Rate mL/min Glucose Level 92 Calcium Level 9.1 Magnesium Level 1.9 Medications Medication Current Medications IV Flush (NS 3 ml) 3 ml PER PROTOCOL IV ; Start 07/23/18 at 02:30 Ondansetron HCl (Zofran Inj) 4 mg Q6H PRN IV NAUSEA/VOMITING; Start 07/23/18 at 02:30 Morphine Sulfate (morphine) 2 mg Q4H PRN IV .SEVERE PAIN 7-10 Last administered on 07/27/18at 00:19; Admin Dose 2 MG; Start 07/23/18 at 02:30 Acetaminophen (Tylenol Tab) 650 mg Q6H PRN PO MILD PAIN(1-3)OR ELEVATED TEMP Last administered on 07/27/18at 02:07; Admin Dose 650 MG; Start 07/23/18 at 12:30 Docusate Sodium (Colace) 100 mg BID PO Last administered on 07/27/18at 21:24; Admin Dose 100 MG; Start 07/23/18 at 21:00 Pantoprazole (Protonix Iv) 40 mg DAILY@06 IV Last administered on 07/28/18at 06:36; Admin Dose 40 MG; Start 07/24/18 at 06:00 Senna (Senokot) 1 tab BID PO Last administered on 07/27/18at 21:27; Admin Dose 1 TAB; Start 07/24/18 at 09:30 Hydralazine HCl (Apresoline) 10 mg Q6H PRN IV sbp>160mmhg Last administered on 07/27/18 12:37; Admin Dose 10 MG; Start 07/24/18 at 09:30 Ceftriaxone Sodium 50 ml @ 100 mls/hr Q24H IVPB Last administered on 07/28/18 09:42; Admin Dose 100 MLS/HR; Start 07/24/18 at 10:00 Hydromorphone HCl (Dilaudid) 0.5 mg Q3H PRN IV SEVERE PAIN LEVEL 7-10 Last administered on 07/27/18 22:15; Admin Dose 0.5 MG; Start 07/24/18 at 09:30 Zolpidem Tartrate (Ambien) 5 mg HS PRN PO INSOMNIA Last administered on 07/27/18 23:49; Admin Dose 5 MG; Start 07/24/18 at 17:00 Aspirin (Aspirin) 81 mg DAILY PO Last administered on 07/27/18 09:20; Admin Dose 81 MG; Start 07/26/18 at 09:00 Atorvastatin Calcium (Lipitor) 80 mg HS PO Last administered on 07/27/18 21:2 4; Admin Dose 80 MG; Start 07/25/18 at 21:00 Nitroglycerin (Nitroglycerin (Sl Tab) 0.4 Mg) 1 tab Q5M PRN SL ANGINA Last administered on 07/27/18 09:22; Admin Dose 1 TAB; Start 07/25/18 at 18:30 Metoprolol Tartrate (Lopressor) 50 mg BID PO Last administered on 07/27/18 21:27; Admin Dose 50 MG; Start 07/26/18 at 21:00 Isosorbide Mononitrate (Imdur) 30 mg DAILY PO Last administered on 07/27/18 09:20; Admin Dose 30 MG; Start 07/26/18 at 14:00 Clopidogrel Bisulfate (plaVIX) 75 mg DAILY PO Last administered on 07/27/18 09:33; Admin Dose 75 MG; Start 07/26/18 at 14:00 Lisinopril (Zestril) 40 mg DAILY PO Last administered on 07/27/18 09:20; Admin Dose 40 MG; Start 07/26/18 at 14:00 Heparin Sodium (Porcine) (Heparin (1000 Units/ml)) 4,000 unit PER PROTOCOL PRN IV aPTT<47 Last administered on 07/28/18at 01:39; Admin Dose 4,000 UNIT; Start 07/27/18 at 09:30 Heparin Sodium (Porcine) 250 ml @ 9.5 mls/hr PER PROTOCOL IV Last administered on 07/28/18at 09:36; Admin Dose 5.5 MLS/HR; Start 07/27/18 at 10:00 Albuterol/ Ipratropium (Duoneb) 3 ml Q2H RESP THERAPY PRN HHN sob; Start 07/27/18 at 09:30 Alprazolam (Xanax) 0.5 mg Q12H PRN PO ANXIETY; Start 07/27/18 at 16:30 ALISE AGUILAR NP Jul 28, 2018 10:00
[2018-07-28] MEDS ORDERED: HEPARIN 1000 UNITS/ML 10 ML INJ ONE (13:45)
[2018-07-28] MEDS ORDERED: LIDOCAINE 1% (MDV) 20 ML INJ ONE (13:45)
[2018-07-28] MEDS ORDERED: IODIXANOL LOCM 100 ML BTL ONE (13:45)
[2018-07-28] MEDS ORDERED: VERAPAMIL 5 MG INJ ONE (13:45)
[2018-07-28] MEDS ORDERED: NITROGLYCERIN (IC) 100 MCG/ML INJ ONE (13:46)
[2018-07-28] MEDS ORDERED: FENTAnyl 50 MCG/ML VIAL ONE (13:56)
[2018-07-28] MEDS ORDERED: MIDAZOLAM 1 MG/ML 2 ML INJ ONE (13:56)
[2018-07-28] MEDS ORDERED: SOD CHLORIDE 0.9% 1,000 ML IV SCH (15:25)
--- NOTE | 2018-07-28 15:25 | SIPON ---
Date/Time of Note Date/Time of Note DATE: 07/28/18 TIME: 15:24 Operative Report Preoperative Diagnosis 1.Nstemi Postoperative Diagnosis 1.nonobstructive cad Operation/Procedure Performed 1.[facility] Surgeon see signature line clinical assistant 1.Ruddy Anesthesia: moderate sedation Estimated blood loss: minimal Transfusion Required none Specimen none Grafts/Implants none Complications none VENKATA LEDBETTER Jul 28, 2018 15:25
[2018-07-28] MEDS ORDERED: AL HYDROX/MG HYDROX/SIMETH 30 ML CUP PO PRN (15:30)
[2018-07-28] MEDS ORDERED: ONDANSETRON 4 MG INJ IV PRN (15:30)
[2018-07-28] MEDS ORDERED: ACETAMINOPHEN 325 MG TAB PO PRN (15:30)
--- NOTE | 2018-07-28 15:31 | PN ---
Date/Time of Note Date/Time of Note DATE: 07/28/18 TIME: 15:28 Assessment/Plan VTE Prophylaxis Risk score (from Nsg)>0 risk: 6 SCD applied (from Nsg): Yes Pharmacological prophylaxis: heparin Lines/Catheters IV Catheter Type (from Nrsg): Peripheral IV Assessment/Plan Assessment/Plan Assessment: Gallstone pancreatitis Rule out choledocholithiasis -filling defect in distal common bile duct on MRCP Transaminitis Leukocytosis Epigastric pain Hypertension Hyperlipidemia Arthritis Chest pain with elevated troponin - r/o HI Plan: Cardiac catheterization today Continue IV fluids Pain management ERCP on hold until cleared to have procedure Monitor Lipase - trending down Patient seen in collaboration with Dr. More Subjective: Patient is currently off the floor for cardiac catheterization. Will reevaluate tomorrow Physical exam: Patient is off the floor for cardiac catheterization Result Diagram: 07/28/18 0758 07/28/18 0758 Results 24hrs Laboratory Tests Test 07/27/18 16:15 07/27/18 19:59 07/27/18 23:24 07/28/18 07:58 Activated > 180.0 *H 89.2 *H 38.4 H 70.7 *H Partial Thromboplast Time White Blood Count 7.0 Red Blood Count 3.94 L Hemoglobin 11.1 L Hematocrit 33.1 L Mean Corpuscular 84.0 Volume Mean Corpuscular 28.2 L Hemoglobin Mean Corpuscular 33.5 Hemoglobin Concent Red Cell 15.0 H Distribution Width Platelet Count 327 Mean Platelet Volume 10.2 Immature 1.600 H Granulocytes % Neutrophils % 52.1 Lymphocytes % 29.9 Monocytes % 11.1 H Eosinophils % 4.7 Basophils % 0.6 Nucleated Red Blood 0.0 Cells % Immature 0.110 H Granulocytes # Neutrophils # 3.7 Lymphocytes # 2.1 Monocytes # 0.8 Eosinophils # 0.3 Basophils # 0.0 Nucleated Red Blood 0.0 Cells # Sodium Level 138 Potassium Level 3.6 Chloride Level 102 Carbon Dioxide Level 26 Anion Gap 10 Blood Urea Nitrogen 7 Creatinine 0.64 Est Glomerular Filtrat Rate mL/min Glucose Level 92 Calcium Level 9.1 Magnesium Level 1.9 Lipase 213 CC: TARYN MORE MD ; Exam/Review of Systems Exam Vitals Vital Signs Date Temp Pulse Resp B/P (MAP) Pulse Ox O2 O2 Flow FiO2 Time Delivery Rate 07/28/18 83 12:00 4/16/19 97.4 19 170/77 98 11:20 (108) 07/28/18 2.0 28 01:50 07/27/18 Nasal 16:20 Cannula Intake and Output 07/27/18 07/27/18 07/28/18 1515:00 23:00 07:00 IntakeIntake Total 250 ml 200 ml BalanceBalance 250 ml 200 ml Results Results 24hrs Laboratory Tests Test 07/27/18 16:15 07/27/18 19:59 07/27/18 23:24 07/28/18 07:58 Activated > 180.0 *H 89.2 *H 38.4 H 70.7 *H Partial Thromboplast Time White Blood Count 7.0 Red Blood Count 3.94 L Hemoglobin 11.1 L Hematocrit 33.1 L Mean Corpuscular 84.0 Volume Mean Corpuscular 28.2 L Hemoglobin Mean Corpuscular 33.5 Hemoglobin Concent Red Cell 15.0 H Distribution Width Platelet Count 327 Mean Platelet Volume 10.2 Immature 1.600 H Granulocytes % Neutrophils % 52.1 Lymphocytes % 29.9 Monocytes % 11.1 H Eosinophils % 4.7 Basophils % 0.6 Nucleated Red Blood 0.0 Cells % Immature 0.110 H Granulocytes # Neutrophils # 3.7 Lymphocytes # 2.1 Monocytes # 0.8 Eosinophils # 0.3 Basophils # 0.0 Nucleated Red Blood 0.0 Cells # Sodium Level 138 Potassium Level 3.6 Chloride Level 102 Carbon Dioxide Level 26 Anion Gap 10 Blood Urea Nitrogen 7 Creatinine 0.64 Est Glomerular Filtrat Rate mL/min Glucose Level 92 Calcium Level 9.1 Magnesium Level 1.9 Lipase 213 Medications Medication Current Medications IV Flush (NS 3 ml) 3 ml PER PROTOCOL IV ; Start 07/23/18 at 02:30 Ondansetron HCl (Zofran Inj) 4 mg Q6H PRN IV NAUSEA/VOMITING; Start 07/23/18 at 02:30 Morphine Sulfate (morphine) 2 mg Q4H PRN IV .SEVERE PAIN 7-10 Last administered on 07/27/18at 00:19; Admin Dose 2 MG; Start 07/23/18 at 02:30 Acetaminophen (Tylenol Tab) 650 mg Q6H PRN PO MILD PAIN(1-3)OR ELEVATED TEMP Last administered on 07/27/18at 02:07; Admin Dose 650 MG; Start 07/23/18 at 12:30 Docusate Sodium (Colace) 100 mg BID PO Last administered on 07/27/18 21:24; Admin Dose 100 MG; Start 07/23/18 at 21:00 Pantoprazole (Protonix Iv) 40 mg DAILY@06 IV Last administered on 07/28/18 06:36; Admin Dose 40 MG; Start 07/24/18 at 06:00 Senna (Senokot) 1 tab BID PO Last administered on 07/27/18 21:27; Admin Dose 1 TAB; Start 07/24/18 at 09:30 Hydralazine HCl (Apresoline) 10 mg Q6H PRN IV sbp>160mmhg Last administered on 07/27/18 12:37; Admin Dose 10 MG; Start 07/24/18 at 09:30 Ceftriaxone Sodium 50 ml @ 100 mls/hr Q24H IVPB Last administered on 07/28/18 09:42; Admin Dose 100 MLS/HR; Start 07/24/18 at 10:00 Hydromorphone HCl (Dilaudid) 0.5 mg Q3H PRN IV SEVERE PAIN LEVEL 7-10 Last administered on 07/27/18 22:15; Admin Dose 0.5 MG; Start 07/24/18 at 09:30 Zolpidem Tartrate (Ambien) 5 mg HS PRN PO INSOMNIA Last administered on 07/27/18 23:49; Admin Dose 5 MG; Start 07/24/18 at 17:00 Aspirin (Aspirin) 81 mg DAILY PO Last administered on 07/27/18 09:20; Admin Dose 81 MG; Start 07/26/18 at 09:00 Atorvastatin Calcium (Lipitor) 80 mg HS PO Last administered on 07/27/18 21:24; Admin Dose 80 MG; Start 07/25/18 at 21:00 Nitroglycerin (Nitroglycerin (Sl Tab) 0.4 Mg) 1 tab Q5M PRN SL ANGINA Last administered on 07/27/18 09:22; Admin Dose 1 TAB; Start 07/25/18 at 18:30 Metoprolol Tartrate (Lopressor) 50 mg BID PO Last administered on 07/27/18 21:27; Admin Dose 50 MG; Start 07/26/18 at 21:00 Isosorbide Mononitrate (Imdur) 30 mg DAILY PO Last administered on 07/27/18 09:20; Admin Dose 30 MG; Start 07/26/18 at 14:00 Clopidogrel Bisulfate (plaVIX) 75 mg DAILY PO Last administered on 07/27/18at 09:33; Admin Dose 75 MG; Start 07/26/18 at 14:00 Lisinopril (Zestril) 40 mg DAILY PO Last administered on 07/27/18 09:20; Admin Dose 40 MG; Start 07/26/18 at 14:00 Heparin Sodium (Porcine) (Heparin (1000 Units/ml)) 4,000 unit PER PROTOCOL PRN IV aPTT<47 Last administered on 07/28/18at 01:39; Admin Dose 4,000 UNIT; Start 07/27/18 at 09:30 Heparin Sodium (Porcine) 250 ml @ 9.5 mls/hr PER PROTOCOL IV Last administered on 07/28/18at 09:36; Admin Dose 5.5 MLS/HR; Start 07/27/18 at 10:00 Albuterol/ Ipratropium (Duoneb) 3 ml Q2H RESP THERAPY PRN HHN sob; Start 07/27/18 at 09:30 Alprazolam (Xanax) 0.5 mg Q12H PRN PO ANXIETY; Start 07/27/18 at 16:30 AMIRA DE LA ROSA NP Jul 28, 2018 15:31
[2018-07-28] MEDS: hydrALAzine 20 MG INJ IV PRN (16:21)
--- NOTE | 2018-07-28 17:34 | RADRPT ---
Vent Rate: 69 bpm RR Interval: 0 msec [place] Interval: 192 msec QRS Duration: 134 msec QT Interval: 466 msec QTC Interval: 499 msec P-R-T [place]: 54 - 65 - 38 degrees Normal sinus rhythm Right bundle branch block Abnormal ECG Electronically Signed By: Jose Adam
--- NOTE | 2018-07-28 17:37 | RADRPT ---
Vent Rate: 67 bpm RR Interval: 0 msec [place] Interval: 194 msec QRS Duration: 138 msec QT Interval: 474 msec QTC Interval: 500 msec P-R-T [place]: 57 - 65 - 36 degrees Normal sinus rhythm Right bundle branch block Abnormal ECG Electronically Signed By: Jose Adam
[2018-07-28] MEDS: morphine 2 MG INJ IV PRN (18:12)
[2018-07-28] MEDS: ACETAMINOPHEN 325 MG TAB PO PRN (20:22)
--- NOTE | 2018-07-28 21:44 | CARRPT ---
DATE OF PROCEDURE: 07/28/2018 TYPE OF PROCEDURES: 1. Left heart catheterization. 2. Coronary angiography. 3. Measurement of left ventricular end-diastolic pressure. 4. Aortic root angiography. 5. Moderate conscious sedation. ATTENDING PHYSICIAN: Venkata Adam M.D. REFERRING PHYSICIAN: Dr. Maza from the hospitalist service. TYPE OF ANESTHESIA: Conscious and local. INDICATION: Non-ST myocardial infarction. HISTORY OF PRESENT ILLNESS: Ms. Chand is a 77-year-old female with a history of hypertension and dy slipidemia who presented with complaints of substernal chest pain and ruled in for a small non-ST luly cardial infarction. Given these findings, the patient was referred for and presents today in order t o undergo left heart catheterization to assess for possibility of significant obstructive coronary ar linsey disease leading to episodes of chest pain and subsequent non-ST myocardial infarction. PROCEDURE: After informed consent was obtained, the patient was brought to the [facility] cardiac catheterization lab where his right radial area was prepped and draped in the usual f ashion. Lidocaine 2% was infiltrated to the right radial area in order to achieve adequate anesthesi a. Using the modified Seldinger technique, the radial artery was cannulated and a 6-Italian arterial sheath was placed. A 6-Italian JL3.5 catheter was used to cannulate the left main coronary ostium. W ith contrast injection, multiple views of the left coronary arterial system were obtained. JL3.5 rubens dewire and a JR4 was used in attempt to cannulate the right coronary ostium and this proved unsuccess ful. We tried the Regan right and Regan right posterior, both proved unsuccessful, mainly due to spasming and possibly within the subclavian system and inability to torque the catheter at all. S ubsequently, this was removed and a 6-Italian pigtail was easily passed into the LV. LVEDP was measur ed. Pull back across the aortic valve to assess for significant gradient, which there was none and p laced in the aortic root. At this time, we did the aortic root angiography to further identify the p atient's right coronary artery and do the nonselective shot identifying the right coronary artery and a small nondominant vessel, which was widely patent. Subsequently, at this time, the patient's pigt ail catheter was removed. The patient's sheath was removed. TR band was applied. There were no not ed complications. FINDINGS: Coronary angiography: Left main 4 mm, no significant focal stenoses. Circumflex proximal ly is a 3 mm vessel and has an ostial 30% stenosis. Remainder of the circumflex coronary artery is f ree from focal stenoses. A dominant vessel and therefore gives off a left-sided PDA, 2 mm and very t ortuous thereafter, but no significant focal stenoses. The patient does have a proximal branching ob tuse marginal, 2.5 mm with no significant focal stenoses. LAD proximally is a 2.53 mm vessel and its proximal portion has a 20% to 30% stenosis. Thereafter, becomes a very tortuous small-caliber vesse l with no significant focal stenoses. There is a diagonal branch versus midway down 2 mm vessel, ext remely tortuous with no significant focal stenoses. The right coronary artery once again had to be c hecked, nonselective to pigtail catheter revealed a small nondominant right 2 mm proximally and then shortly dissipates a widely patent and have no significant stenoses. MEASUREMENTS: Left ventricular end-diastolic pressure of 30, no significant aortic stenosis by gradi ent. TOTAL FLUOROSCOPY TIME: 20 minutes. TOTAL CONTRAST: 190 mL. IMPRESSION: 1. Moderate nonobstructive coronary artery disease with the likely culprit being a small subtle or o btuse marginal diagonal branch, which is not able to be seen, likely due to small-caliber vessel and extreme tortuosity of vessels. There is no significant major epicardial coronary artery disease. 2. Elevated left heart filling pressures. 3. No significant aortic stenosis by gradient. RECOMMENDATIONS: In light of procedure and findings at this time would: 1. Maximize medical management. 2. Aggressive risk factor reduction. 3. The patient will be readmitted to the telemetry floor for post-catheterization observation and co ntinued management of symptoms with probable discharge the following day. 4. Additionally, note should be made of significant difficulty with torquing any right-sided cathete rs and likely next approach should be made from the left radial or femoral approach. Dictated By: VENKATA BERNAL/ALHAJI Conf#: [id number] DID#: [id number] CC: CALVIN MAZA MD; GRACIELA JOHNSON MD; SANTOS ECHOLS MD; DOMINIQUE CASTELLANOS MD;*EndCC*
[2018-07-28] MEDS: ATORVASTATIN 80 MG TAB PO SCH (21:56)
[2018-07-28] MEDS: ZOLPIDEM 5 MG TAB PO PRN (22:15)
[2018-07-29] VITALS (13 sets, daily range): BP systolic 126–169; BP diastolic 55–74; PULSE 58–77; RESP 17–18
[2018-07-29] MEDS: ACETAMINOPHEN 325 MG TAB PO PRN ×2 (03:34→15:35)
[2018-07-29] MEDS: PANTOPRAZOLE 40 MG INJ IV SCH (06:10)
[2018-07-29] MEDS ORDERED: POTASSIUM CHLORIDE (SR) 20 MEQ TAB PO ONE (08:00)
[2018-07-29] MEDS: SENNA TAB PO SCH ×2 (08:47→22:52)
[2018-07-29] MEDS: METOPROLOL 50 MG TAB PO SCH ×2 (08:47→22:52)
[2018-07-29] MEDS: DOCUSATE SODIUM 100 MG CAP PO SCH ×2 (08:48→22:52)
[2018-07-29] MEDS: ISOSORBIDE MONONITRATE(SR)30 MG TAB PO SCH (08:48)
[2018-07-29] MEDS: CLOPIDOGREL 75 MG TAB PO SCH (08:48)
[2018-07-29] MEDS: LISINOPRIL 20 MG TAB PO SCH (08:49)
[2018-07-29] MEDS: ASPIRIN 81 MG TAB PO SCH (08:49)
[2018-07-29] MEDS ORDERED: MAGNESIUM SULFATE 1 GM/D5W 100 ML IVPB ONE (09:30)
[2018-07-29] MEDS: CEFTRIAXONE 1 GM/50 ML (PMX) 50 ML IVPB SCH (09:52)
--- NOTE | 2018-07-29 09:52 | PN ---
Date/Time of Note Date/Time of Note DATE: 07/29/18 TIME: 09:48 Assessment/Plan VTE Prophylaxis Risk score (from Ns)>0 risk: 5 SCD applied (from Ns): Yes Pharmacological prophylaxis: NA/contraindicated Pharm contraindication: low risk/ambulating Lines/Catheters IV [facility]ter [facility]from [facility] Urinary Cath still in place: No Assessment/Plan Hospital Course SUBJECTIVE: No acute distress. OBJECTIVE: Vital signs-see below PHYSICAL EXAM: Constitutional: Well-developed, well-nourished elderly female, not in acute distress. HEENT: Head atraumatic and normocephalic. Eyes: Extraocular muscles intact. Anicteric sclerae. Pupils equal bilaterally, reactive to light. NECK: Supple without lymph node. CHEST: Clear and good breath sounds equally. No wheezing. No rhonchi. HEART: S1, S2. Regular rate and rhythm. ABDOMEN: abdomen soft /non tender, with no rebound tenderness. Bowel sounds were present. EXTREMITIES: Full range of motion in all the extremities. No cyanosis, clubbing or edema. NEUROLOGIC: Alert and oriented x3. No focal deficit. No sensory deficit. PSYCHOSOCIAL: In a good mood. No signs of depression. INTEGUMENTARY: Moist mucous membranes. Good skin turgor, intact. ASSESSMENT AND PLAN:37-year-old female with a history of hypertension, anemia, hepatic steatosis, admitted with periumbilical/right-sided abdominal pain, found to have acute biliary pancreatitis, now with chest pain/troponin leak. 1. Nonobstructive coronary artery disease/NSTEMI -Status post [facility] 07/28/2018. -Continue medical management including antiplatelet/statin/beta-blockers. -Follow-up cardiology recommendations. 2. Diastolic dysfunction. -stable -cont BB 3. Acute biliary pancreatitis. -Plan for ERCP tomorrow 4. Biliary ductal dilatation, possible choledocholithiasis. -See #3 5. Essential hypertension. -now stable. Continue BB/ACEi/nitrates 6. Hyperlipidemia. -Continue statin. 7. Incidental finding of left adnexal mass, likely benign. -Recommend follow-up CT in 3 months as outpatient. 8. Anemia, likely chronic. -Stable H&H. Continue to monitor. 9. Obesity with a BMI 32.3. -Lifestyle changes advised. DVT prophylaxis: Heparin PUD prophylaxis: Protonix. Diet; low-cholesterol/low-fat diet. N.p.o. after midnight for ERCP. Disposition: I discussed with Dr. Adam and from a cardiac standpoint patient is maximally optimized to proceed for ERCP and per GI, plan is to schedule ERCP likely in a.m. Patient was seen in collaboration with Dr. MAZA Result Diagram: 07/29/18 0532 07/29/18 0532 Results 24hrs Laboratory Tests Test 07/28/18 19:05 07/29/18 05:32 07/29/18 05:33 Activated Partial Thromboplast Time 35.5 H White Blood Count 7.2 Red Blood Count 3.49 L Hemoglobin 9.6 L Hematocrit 29.2 L Mean Corpuscular Volume 83.7 Mean Corpuscular Hemoglobin 27.5 L Mean Corpuscular Hemoglobin Concent 32.9 Red Cell Distribution Width 14.7 H Platelet Count 389 Mean Platelet Volume 11.2 H Immature Granulocytes % 2.100 H Neutrophils % 53.5 Lymphocytes % 28.8 Monocytes % 11.4 H Eosinophils % 3.6 Basophils % 0.6 Nucleated Red Blood Cells % 0.0 Immature Granulocytes # 0.150 H Neutrophils # 3.9 Lymphocytes # 2.1 Monocytes # 0.8 Eosinophils # 0.3 Basophils # 0.0 Nucleated Red Blood Cells # 0.0 Sodium Level 136 Potassium Level 3.1 L Chloride Level 103 Carbon Dioxide Level 21 Anion Gap 12 Blood Urea Nitrogen 8 Creatinine 0.64 Est Glomerular Filtrat Rate mL/min Glucose Level 87 Calcium Level 9.0 Magnesium Level 1.7 Lipase 229 Exam/Review of Systems Exam Vitals Vital Signs Date Temp Pulse Resp B/P (MAP) Pulse Ox O2 O2 Flow FiO2 Time Delivery Rate 07/29/18 97.5 77 18 166/74 100 Room Air 08:08 (104) 07/28/18 2.0 28 01:50 Intake and Output 07/28/18 07/28/18 07/29/18 1414:59 22:59 06:59 IntakeIntake Total 50 ml 0 ml 320 ml OutputOutput Total 450 ml BalanceBalance 50 ml -450 ml 320 ml Results Results 24hrs Laboratory Tests Test 07/28/18 19:05 07/29/18 05:32 07/29/18 05:33 Activated Partial Thromboplast Time 35.5 H White Blood Count 7.2 Red Blood Count 3.49 L Hemoglobin 9.6 L Hematocrit 29.2 L Mean Corpuscular Volume 83.7 Mean Corpuscular Hemoglobin 27.5 L Mean Corpuscular Hemoglobin Concent 32.9 Red Cell Distribution Width 14.7 H Platelet Count 389 Mean Platelet Volume 11.2 H Immature Granulocytes % 2.100 H Neutrophils % 53.5 Lymphocytes % 28.8 Monocytes % 11.4 H Eosinophils % 3.6 Basophils % 0.6 Nucleated Red Blood Cells % 0.0 Immature Granulocytes # 0.150 H Neutrophils # 3.9 Lymphocytes # 2.1 Monocytes # 0.8 Eosinophils # 0.3 Basophils # 0.0 Nucleated Red Blood Cells # 0.0 Sodium Level 136 Potassium Level 3.1 L Chloride Level 103 Carbon Dioxide Level 21 Anion Gap 12 Blood Urea Nitrogen 8 Creatinine 0.64 Est Glomerular Filtrat Rate mL/min Glucose Level 87 Calcium Level 9.0 Magnesium Level 1.7 Lipase 229 Medications Medication Current Medications IV Flush (NS 3 ml) 3 ml PER PROTOCOL IV ; Start 07/23/18 at 02:30 Morphine Sulfate (morphine) 2 mg Q4H PRN IV .SEVERE PAIN 7-10 Last administered on 07/28/18 18:12; Admin Dose 2 MG; Start 07/23/18 at 02:30 Acetaminophen (Tylenol Tab) 650 mg Q6H PRN PO MILD PAIN(1-3)OR ELEVATED TEMP Last administered on 07/29/18at 03:34; Admin Dose 650 MG; Start 07/23/18 at 12:30 Docusate Sodium (Colace) 100 mg BID PO Last administered on 07/29/18at 08:48; Admin Dose 100 MG; Start 07/23/18 at 21:00 Pantoprazole (Protonix Iv) 40 mg DAILY@06 IV Last administered on 07/29/18 06:10; Admin Dose 40 MG; Start 07/24/18 at 06:00 Senna (Senokot) 1 tab BID PO Last administered on 07/27/18 21:27; Admin Dose 1 TAB; Start 07/24/18 at 09:30 Hydralazine HCl (Apresoline) 10 mg Q6H PRN IV sbp>160mmhg Last administered on 07/28/18 16:21; Admin Dose 10 MG; Start 07/24/18 at 09:30 Ceftriaxone Sodium 50 ml @ 100 mls/hr Q24H IVPB Last administered on 07/28/18 09:42; Admin Dose 100 MLS/HR; Start 07/24/18 at 10:00 Hydromorphone HCl (Dilaudid) 0.5 mg Q3H PRN IV SEVERE PAIN LEVEL 7-10 Last administered on 07/27/18 22:15; Admin Dose 0.5 MG; Start 07/24/18 at 09:30 Zolpidem Tartrate (Ambien) 5 mg HS PRN PO INSOMNIA Last administered on 07/28/18 22:15; Admin Dose 5 MG; Start 07/24/18 at 17:00 Aspirin (Aspirin) 81 mg DAILY PO Last administered on 07/29/18 08:49; Admin D ose 81 MG; Start 07/26/18 at 09:00 Atorvastatin Calcium (Lipitor) 80 mg HS PO Last administered on 07/28/18 21:56; Admin Dose 80 MG; Start 07/25/18 at 21:00 Nitroglycerin (Nitroglycerin (Sl Tab) 0.4 Mg) 1 tab Q5M PRN SL ANGINA Last administered on 07/27/18 09:22; Admin Dose 1 TAB; Start 07/25/18 at 18:30 Metoprolol Tartrate (Lopressor) 50 mg BID PO Last administered on 07/29/18 08:47; Admin Dose 50 MG; Start 07/26/18 at 21:00 Isosorbide Mononitrate (Imdur) 30 mg DAILY PO Last administered on 07/29/18 08:48; Admin Dose 30 MG; Start 07/26/18 at 14:00 Clopidogrel Bisulfate (plaVIX) 75 mg DAILY PO Last administered on 07/29/18 08:48; Admin Dose 75 MG; Start 07/26/18 at 14:00 Lisinopril (Zestril) 40 mg DAILY PO Last administered on 07/29/18 08:49; Admin Dose 40 MG; Start 07/26/18 at 14:00 Albuterol/ Ipratropium (Duoneb) 3 ml Q2H RESP THERAPY PRN HHN sob; Start 07/27/18 at 09:30 Alprazolam (Xanax) 0.5 mg Q12H PRN PO ANXIETY; Start 07/27/18 at 16:30 Acetaminophen (Tylenol Tab) 650 mg Q4H PRN PO NON-CARDIAC PAIN LEVEL (1-3); Start 07/28/18 at 15:30 Al Hydrox/Mg Hydrox/Simethicone (Mag-Al Plus) 30 ml Q4H PRN PO GASTROINTESTINAL UPSET; Start 07/28/18 at 15:30 Ondansetron HCl (Zofran Inj) 4 mg Q4H PRN IV NAUSEA AND/OR VOMITING; Start 07/28/18 at 15:30 Magnesium Sulfate/ Dextrose 100 ml @ 100 mls/hr ONCE ONCE IVPB ; Start 07/29/18 at 09:30; Stop 07/29/18 at 10:29 ALISE AGUILAR NP Jul 29, 2018 09:52
--- NOTE | 2018-07-29 13:38 | CONS ---
Assessment/Plan Assessment/Plan Hospital Course (Demo Recall) 1. NSTEMI-mildly positive troponin. EF 55% by echo this admit. Now s/p LHC with no sig major epicardial stenosis 2. Abnormal electrocardiogram with right bundle branch block with nonspecific S T-T wave changes. 3. Hypertension-labile 4. Dyslipidemia. 5. Pancreatitis. 6. Thyroid nodule. Recc: -Tele -serial ecg's -Continue asa/plavix -Continue BB/zestril s/p increase and follow labile BP closely with possible need to add additional antihypertesnives -Continue imdur -pnding ERCP Consultation Date/Type/Reason Admit Date/Time Jul 23, 2018 at 00:37 Initial Consult Date 07/24/18 Type of Consult Cardiology Reason for Consultation Nstemi Requesting Provider: CALVIN MAZA Date/Time of Note DATE: 07/29/18 TIME: 13:35 Exam/Review of Systems Vital Signs Vitals Vital Signs Date Temp Pulse Resp B/P (MAP) Pulse Ox O2 O2 Flow FiO2 Time Delivery Rate 07/29/18 97.5 58 18 130/60 97 Room Air 11:02 (83) 07/28/18 2.0 28 01:50 Intake and Output 07/28/18 07/28/18 07/29/18 1414:59 22:59 06:59 IntakeIntake Total 50 ml 0 ml 320 ml OutputOutput Total 450 ml BalanceBalance 50 ml -450 ml 320 ml Exam Exam Review of Systems: CONSTITUTIONAL: No fevers, chills. PULMONARY: No sob CARDIOVASCULAR: No chest pain/palpitations GASTROINTESTINAL: No nausea/vomiting. GENITOURINARY: No hematuria/dysuria. MUSCULOSKELETAL: No myagias/arthalgias. PSYCHIATRIC: The patient denies depression. NEUROLOGIC: No weakness Constitutional: alert Psych: no complaints Head: normocephalic ENMT: mucosa pink and moist Neck: supple, jvd (9 cm water) Respiratory: clear to auscultation Cardiovascular: regular rate and rhythm Gastrointestinal: soft, non-tender Musculoskeletal: muscle tone (normal) Extremities: edema (none) Neurological: other (No focal deficicts) Labs Result Diagram: 07/29/18 0532 07/29/18 0532 Results 24hrs Laboratory Tests Test 07/28/18 19:05 07/29/18 05:32 07/29/18 05:33 Activated Partial Thromboplast Time 35.5 H White Blood Count 7.2 Red Blood Count 3.49 L Hemoglobin 9.6 L Hematocrit 29.2 L Mean Corpuscular Volume 83.7 Mean Corpuscular Hemoglobin 27.5 L Mean Corpuscular Hemoglobin Concent 32.9 Red Cell Distribution Width 14.7 H Platelet Count 389 Mean Platelet Volume 11.2 H Immature Granulocytes % 2.100 H Neutrophils % 53.5 Lymphocytes % 28.8 Monocytes % 11.4 H Eosinophils % 3.6 Basophils % 0.6 Nucleated Red Blood Cells % 0.0 Immature Granulocytes # 0.150 H Neutrophils # 3.9 Lymphocytes # 2.1 Monocytes # 0.8 Eosinophils # 0.3 Basophils # 0.0 Nucleated Red Blood Cells # 0.0 Sodium Level 136 Potassium Level 3.1 L Chloride Level 103 Carbon Dioxide Level 21 Anion Gap 12 Blood Urea Nitrogen 8 Creatinine 0.64 Est Glomerular Filtrat Rate mL/min Glucose Level 87 Calcium Level 9.0 Magnesium Level 1.7 Lipase 229 Medications Medications Current Medications IV Flush (NS 3 ml) 3 ml PER PROTOCOL IV ; Start 07/23/18 at 02:30 Morphine Sulfate (morphine) 2 mg Q4H PRN IV .SEVERE PAIN 7-10 Last administered on 07/28/18 18:12; Admin Dose 2 MG; Start 07/23/18 at 02:30 Acetaminophen (Tylenol Tab) 650 mg Q6H PRN PO MILD PAIN(1-3)OR ELEVATED TEMP Last administered on 07/29/18at 03:34; Admin Dose 650 MG; Start 07/23/18 at 12:30 Docusate Sodium (Colace) 100 mg BID PO Last administered on 07/29/18at 08:48; Admin Dose 100 MG; Start 07/23/18 at 21:00 Pantoprazole (Protonix Iv) 40 mg DAILY@06 IV Last administered on 07/29/18 06: 10; Admin Dose 40 MG; Start 07/24/18 at 06:00 Senna (Senokot) 1 tab BID PO Last administered on 07/27/18 21:27; Admin Dose 1 TAB; Start 07/24/18 at 09:30 Hydralazine HCl (Apresoline) 10 mg Q6H PRN IV sbp>160mmhg Last administered on 07/28/18 16:21; Admin Dose 10 MG; Start 07/24/18 at 09:30 Ceftriaxone Sodium 50 ml @ 100 mls/hr Q24H IVPB Last administered on 07/29/18 09:52; Admin Dose 100 MLS/HR; Start 07/24/18 at 10:00 Hydromorphone HCl (Dilaudid) 0.5 mg Q3H PRN IV SEVERE PAIN LEVEL 7-10 Last administered on 07/27/18 22:15; Admin Dose 0.5 MG; Start 07/24/18 at 09:30 Zolpidem Tartrate (Ambien) 5 mg HS PRN PO INSOMNIA Last administered on 07/28/18 22:15; Admin Dose 5 MG; Start 07/24/18 at 17:00 Aspirin (Aspirin) 81 mg DAILY PO Last administered on 07/29/18 08:49; Admin Dose 81 MG; Start 07/26/18 at 09:00 Atorvastatin Calcium (Lipitor) 80 mg HS PO Last administered on 07/28/18 21:56; Admin Dose 80 MG; Start 07/25/18 at 21:00 Nitroglycerin (Nitroglycerin (Sl Tab) 0.4 Mg) 1 tab Q5M PRN SL ANGINA Last administered on 07/27/18 09:22; Admin Dose 1 TAB; Start 07/25/18 at 18:30 Metoprolol Tartrate (Lopressor) 50 mg BID PO Last administered on 07/29/18 08:47; Admin Dose 50 MG; Start 07/26/18 at 21:00 Isosorbide Mononitrate (Imdur) 30 mg DAILY PO Last administered on 07/29/18 08:48; Admin Dose 30 MG; Start 07/26/18 at 14:00 Clopidogrel Bisulfate (plaVIX) 75 mg DAILY PO Last administered on 07/29/18 08:48; Admin Dose 75 MG; Start 07/26/18 at 14:00 Lisinopril (Zestril) 40 mg DAILY PO Last administered on 07/29/18 08:49; Admin Dose 40 MG; Start 07/26/18 at 14:00 Albuterol/ Ipratropium (Duoneb) 3 ml Q2H RESP THERAPY PRN HHN sob; Start 07/27/18 at 09:30 Alprazolam (Xanax) 0.5 mg Q12H PRN PO ANXIETY; Start 07/27/18 at 16:30 Acetaminophen (Tylenol Tab) 650 mg Q4H PRN PO NON-CARDIAC PAIN LEVEL (1-3); Start 07/28/18 at 15:30 Al Hydrox/Mg Hydrox/Simethicone (Mag-Al Plus) 30 ml Q4H PRN PO GASTROINTESTINAL UPSET; Start 07/28/18 at 15:30 Ondansetron HCl (Zofran Inj) 4 mg Q4H PRN IV NAUSEA AND/OR VOMITING; Start 07/28/18 at 15:30 VENKATA LEDBETTER Jul 29, 2018 13:38
--- NOTE | 2018-07-29 16:04 | PN ---
Date/Time of Note Date/Time of Note DATE: 07/29/18 TIME: 15:52 Assessment/Plan VTE Prophylaxis Risk score (from Ns)>0 risk: 5 SCD applied (from Ns): Yes Pharmacological prophylaxis: heparin Lines/Catheters [facility] Saline Lock Urinary Cath still in place: No Assessment/Plan Assessment/Plan Assessment: Gallstone pancreatitis Rule out choledocholithiasis -filling defect in distal common bile duct on MRCP Transaminitis Leukocytosis Epigastric pain Hypertension Hyperlipidemia Arthritis Chest pain with elevated troponin - r/o [place] Plan: Repeat MRCP to check of the stone has passed Liver function test tomorrow a.m. N.p.o. after 10 AM 07/30/2018 for possible ERCP Monitor Lipase - trending down Patient seen in collaboration with Dr. More Subjective: Patient is doing well. She denies abdominal pain, nausea or vomiting. No fevers overnight. Patient was cleared for ERCP by cardiology. With absence of symptoms we will recheck MRCP and liver function test with a.m. labs to reassess the need for ERCP. Keep n.p.o. after 10 AM. Continue observation PHYSICAL EXAMINATION: GENERAL: Well developed, well nourished, alert & oriented x 3, in no acute distress SKIN: No lesions, no stigmata chronic liver disease, no evidence of bleeding diathesis LYMPHATIC: No palpable lymphadenopathy. HEAD: Normocephalic, atraumatic, no tenderness. EYES: Pupils equal reactive to light and accommodation, full extraocular movements, sclera clear, non-icteric, no discharge. EARS/NOSE AND THROAT: Ears normal, nose normal, oropharynx normal, oral membranes well hydrated without lesions. NECK: Supple, no masses, thyroid normal, JVP within normal limits, carotids normal without bruits. CHEST: Inspection within normal limits. CARDIOVASCULAR: Heart: Regular rate and rhythm, no murmurs, gallops or rubs. Peripheral pulses present within normal limits, no cyanosis, clubbing or edemas. No pulsatile abdominal mass RESPIRATORY: Lungs clear to auscultation and percussion, no wheezing, no rubs GASTROINTESTINAL AND LIVER: Abdomen: Soft, non tenderness, non-distended, no hernias, no masses, no organomegaly, no ascites, no guarding, no rebound tenderness, normoactive bowel sounds. Rectal: Deferred. GENITOURINARY: Female genitalia within normal limits. EXTREMITIES: No cyanosis, clubbing or edema. Result Diagram: 07/29/18 0532 07/29/18 0532 Results 24hrs Laboratory Tests Test 07/28/18 19:05 07/29/18 05:32 07/29/18 05:33 Activated Partial Thromboplast Time 35.5 H White Blood Count 7.2 Red Blood Count 3.49 L Hemoglobin 9.6 L Hematocrit 29.2 L Mean Corpuscular Volume 83.7 Mean Corpuscular Hemoglobin 27.5 L Mean Corpuscular Hemoglobin Concent 32.9 Red Cell Distribution Width 14.7 H Platelet Count 389 Mean Platelet Volume 11.2 H Immature Granulocytes % 2.100 H Neutrophils % 53.5 Lymphocytes % 28.8 Monocytes % 11.4 H Eosinophils % 3.6 Basophils % 0.6 Nucleated Red Blood Cells % 0.0 Immature Granulocytes # 0.150 H Neutrophils # 3.9 Lymphocytes # 2.1 Monocytes # 0.8 Eosinophils # 0.3 Basophils # 0.0 Nucleated Red Blood Cells # 0.0 Sodium Level 136 Potassium Level 3.1 L Chloride Level 103 Carbon Dioxide Level 21 Anion Gap 12 Blood Urea Nitrogen 8 Creatinine 0.64 Est Glomerular Filtrat Rate mL/min Glucose Level 87 Calcium Level 9.0 Magnesium Level 1.7 Lipase 229 CC: TARYN MORE MD ; Exam/Review of Systems Exam Vitals Vital Signs Date Temp Pulse Resp B/P (MAP) Pulse Ox O2 O2 Flow FiO2 Time Delivery Rate 07/29/18 98.4 65 18 169/72 99 Room Air 15:21 (104) 07/28/18 2.0 28 01:50 Intake and Output 07/28/18 07/28/18 07/29/18 1515:00 23:00 07:00 IntakeIntake Total 50 ml 0 ml 320 ml OutputOutput Total 450 ml BalanceBalance 50 ml -450 ml 320 ml Results Results 24hrs Laboratory Tests Test 07/28/18 19:05 07/29/18 05:32 07/29/18 05:33 Activated Partial Thromboplast Time 35.5 H White Blood Count 7.2 Red Blood Count 3.49 L Hemoglobin 9.6 L Hematocrit 29.2 L Mean Corpuscular Volume 83.7 Mean Corpuscular Hemoglobin 27.5 L Mean Corpuscular Hemoglobin Concent 32.9 Red Cell Distribution Width 14.7 H Platelet Count 389 Mean Platelet Volume 11.2 H Immature Granulocytes % 2.100 H Neutrophils % 53.5 Lymphocytes % 28.8 Monocytes % 11.4 H Eosinophils % 3.6 Basophils % 0.6 Nucleated Red Blood Cells % 0.0 Immature Granulocytes # 0.150 H Neutrophils # 3.9 Lymphocytes # 2.1 Monocytes # 0.8 Eosinophils # 0.3 Basophils # 0.0 Nucleated Red Blood Cells # 0.0 Sodium Level 136 Potassium Level 3.1 L Chloride Level 103 Carbon Dioxide Level 21 Anion Gap 12 Blood Urea Nitrogen 8 Creatinine 0.64 Est Glomerular Filtrat Rate mL/min Glucose Level 87 Calcium Level 9.0 Magnesium Level 1.7 Lipase 229 Medications Medication Current Medications IV Flush (NS 3 ml) 3 ml PER PROTOCOL IV ; Start 07/23/18 at 02:30 Morphine Sulfate (morphine) 2 mg Q4H PRN IV .SEVERE PAIN 7-10 Last administered on 07/28/18 18:12; Admin Dose 2 MG; Start 07/23/18 at 02:30 Acetaminophen (Tylenol Tab) 650 mg Q6H PRN PO MILD PAIN(1-3)OR ELEVATED TEMP Last administered on 07/29/18at 15:35; Admin Dose 650 MG; Start 07/23/18 at 12:30 Docusate Sodium (Colace) 100 mg BID PO Last administered on 07/29/18 08:48; Admin Dose 100 MG; Start 07/23/18 at 21:00 Pantoprazole (Protonix Iv) 40 mg DAILY@06 IV Last administered on 07/29/18 06:10; Admin Dose 40 MG; Start 07/24/18 at 06:00 Senna (Senokot) 1 tab BID PO Last administered on 07/27/18 21:27; Admin Dose 1 TAB; Start 07/24/18 at 09:30 Hydralazine HCl (Apresoline) 10 mg Q6H PRN IV sbp>160mmhg Last administered on 07/28/18 16:21; Admin Dose 10 MG; Start 07/24/18 at 09:30 Ceftriaxone Sodium 50 ml @ 100 mls/hr Q24H IVPB Last administered on 07/29/18 09:52; Admin Dose 100 MLS/HR; Start 07/24/18 at 10:00 Hydromorphone HCl (Dilaudid) 0.5 mg Q3H PRN IV SEVERE PAIN LEVEL 7-10 Last administered on 07/27/18 22:15; Admin Dose 0.5 MG; Start 07/24/18 at 09:30 Zolpidem Tartrate (Ambien) 5 mg HS PRN PO INSOMNIA Last administered on 07/28/18 22:15; Admin Dose 5 MG; Start 07/24/18 at 17:00 Aspirin (Aspirin) 81 mg DAILY PO Last administered on 07/29/18 08:49; Admin Dose 81 MG; Start 07/26/18 at 09:00 Atorvastatin Calcium (Lipitor) 80 mg HS PO Last administered on 07/28/18 21:56; Admin Dose 80 MG; Start 07/25/18 at 21:00 Nitroglycerin (Nitroglycerin (Sl Tab) 0.4 Mg) 1 tab Q5M PRN SL ANGINA Last administered on 07/27/18 09:22; Admin Dose 1 TAB; Start 07/25/18 at 18:30 Metoprolol Tartrate (Lopressor) 50 mg BID PO Last administered on 07/29/18 08:47; Admin Dose 50 MG; Start 07/26/18 at 21:00 Isosorbide Mononitrate (Imdur) 30 mg DAILY PO Last administered on 07/29/18 08:48; Admin Dose 30 MG; Start 07/26/18 at 14:00 Clopidogrel Bisulfate (plaVIX) 75 mg DAILY PO Last administered on 07/29/18 08:48; Admin Dose 75 MG; Start 07/26/18 at 14:00 Lisinopril (Zestril) 40 mg DAILY PO Last administered on 07/29/18 08:49; Admin Dose 40 MG; Start 07/26/18 at 14:00 Albuterol/ Ipratropium (Duoneb) 3 ml Q2H RESP THERAPY PRN HHN sob; Start 07/27/18 at 09:30 Alprazolam (Xanax) 0.5 mg Q12H PRN PO ANXIETY; Start 07/27/18 at 16:30 Acetaminophen (Tylenol Tab) 650 mg Q4H PRN PO NON-CARDIAC PAIN LEVEL (1-3); Start 07/28/18 at 15:30 Al Hydrox/Mg Hydrox/Simethicone (Mag-Al Plus) 30 ml Q4H PRN PO GASTROINTESTINAL UPSET; Start 07/28/18 at 15:30 Ondansetron HCl (Zofran Inj) 4 mg Q4H PRN IV NAUSEA AND/OR VOMITING; Start 07/28/18 at 15:30 AMIRA DE LA ROSA NP Jul 29, 2018 16:04
[2018-07-29] MEDS: ATORVASTATIN 80 MG TAB PO SCH (22:51)
[2018-07-29] MEDS: ZOLPIDEM 5 MG TAB PO PRN (22:56)
[2018-07-30] VITALS (13 sets, daily range): BP systolic 131–171; BP diastolic 61–74; PULSE 62–87; RESP 16–19
[2018-07-30] MEDS: hydrALAzine 20 MG INJ IV PRN (04:39)
[2018-07-30] MEDS: ACETAMINOPHEN 325 MG TAB PO PRN ×2 (04:51→14:08)
[2018-07-30] MEDS: PANTOPRAZOLE 40 MG INJ IV SCH (04:51)
[2018-07-30] MEDS: ASPIRIN 81 MG TAB PO SCH (08:27)
[2018-07-30] MEDS: LISINOPRIL 20 MG TAB PO SCH (08:27)
[2018-07-30] MEDS: CLOPIDOGREL 75 MG TAB PO SCH (08:27)
[2018-07-30] MEDS: ISOSORBIDE MONONITRATE(SR)30 MG TAB PO SCH (08:28)
[2018-07-30] MEDS: METOPROLOL 50 MG TAB PO SCH ×2 (08:28→21:00)
[2018-07-30] MEDS: DOCUSATE SODIUM 100 MG CAP PO SCH ×2 (08:28→21:00)
[2018-07-30] MEDS: SENNA TAB PO SCH ×2 (08:29→21:00)
[2018-07-30] MEDS: CEFTRIAXONE 1 GM/50 ML (PMX) 50 ML IVPB SCH (10:24)
--- NOTE | 2018-07-30 10:42 | PN ---
Date/Time of Note Date/Time of Note DATE: 07/30/18 TIME: 10:36 Assessment/Plan VTE Prophylaxis Risk score (from Ns)>0 risk: 5 SCD applied (from Ns): Yes Pharmacological prophylaxis: heparin Lines/Catheters [facility] Saline Lock Urinary Cath still in place: No Assessment/Plan Hospital Course SUBJECTIVE: No acute distress. OBJECTIVE: Vital signs-see below PHYSICAL EXAM: Constitutional: Well-developed, well-nourished elderly female, not in acute distress. HEENT: Head atraumatic and normocephalic. Eyes: Extraocular muscles intact. Anicteric sclerae. Pupils equal bilaterally, reactive to light. NECK: Supple without lymph node. CHEST: Clear and good breath sounds equally. No wheezing. No rhonchi. HEART: S1, S2. Regular rate and rhythm. ABDOMEN: abdomen soft /non tender, with no rebound tenderness. Bowel sounds were present. EXTREMITIES: Full range of motion in all the extremities. No cyanosis, clubbing or edema. NEUROLOGIC: Alert and oriented x3. No focal deficit. No sensory deficit. PSYCHOSOCIAL: In a good mood. No signs of depression. INTEGUMENTARY: Moist mucous membranes. Good skin turgor, intact. ASSESSMENT AND PLAN:37-year-old female with a history of hypertension, anemia, hepatic steatosis, admitted with periumbilical/right-sided abdominal pain, found to have acute biliary pancreatitis, now with chest pain/troponin leak. 1. Nonobstructive coronary artery disease/NSTEMI -Status post [facility] 07/28/2018. -Continue medical management including antiplatelet/statin/beta-blockers. -Follow-up cardiology recommendations. 2. Diastolic dysfunction. -stable -cont BB 3. Acute biliary pancreatitis. -Resolved. Repeat MRCP with mild CBD dilatation only. -Likely plan for ERCP per GI notes. 4. Essential hypertension. -now stable. Continue BB/ACEi/nitrates 5. Hyperlipidemia. -Continue statin. 6. Incidental finding of left adnexal mass, likely benign. -Recommend follow-up CT in 3 months as outpatient. 7. Anemia, likely chronic. -Stable H&H. Continue to monitor. 8. Obesity with a BMI 32.3. -Lifestyle changes advised. DVT prophylaxis: Heparin PUD prophylaxis: Protonix. Diet;per GI Disposition: Follow-up GI recommendations.... likely DC planning in 24 hours Patient was seen in collaboration with Dr. MAZA Result Diagram: 07/30/18 0538 07/30/18 0538 Results 24hrs Laboratory Tests Test 07/30/18 05:38 White Blood Count 8.3 Red Blood Count 4.04 L Hemoglobin 11.6 #L Hematocrit 33.9 L Mean Corpuscular Volume 83.9 Mean Corpuscular Hemoglobin 28.7 L Mean Corpuscular Hemoglobin Concent 34.2 Red Cell Distribution Width 14.8 H Platelet Count 319 Mean Platelet Volume 10.0 Immature Granulocytes % 1.600 H Neutrophils % 63.6 Lymphocytes % 18.4 Monocytes % 7.6 Eosinophils % 8.3 H Basophils % 0.5 Nucleated Red Blood Cells % 0.0 Immature Granulocytes # 0.130 H Neutrophils # 5.3 Lymphocytes # 1.5 Monocytes # 0.6 Eosinophils # 0.7 H Basophils # 0.0 Nucleated Red Blood Cells # 0.0 Sodium Level 140 Potassium Level 3.6 Chloride Level 108 Carbon Dioxide Level 23 Anion Gap 9 Blood Urea Nitrogen 8 Creatinine 0.63 Est Glomerular Filtrat Rate mL/min Glucose Level 107 Calcium Level 9.3 Magnesium Level 1.9 Total Bilirubin 0.2 Direct Bilirubin 0.00 Indirect Bilirubin 0.2 Aspartate Amino Transf (AST/SGOT) 30 Alanine Aminotransferase (ALT/SGPT) 26 Alkaline Phosphatase 135 H Total Protein 6.3 Albumin 3.3 Globulin 3.00 Albumin/Globulin Ratio 1.10 Lipase 316 H Exam/Review of Systems Exam Vitals Vital Signs Date Temp Pulse Resp B/P (MAP) Pulse Ox O2 O2 Flow FiO2 Time Delivery Rate 07/30/18 81 08:21 07/30/18 98.4 18 140/61 97 Room Air 07:14 (87) 07/28/18 2.0 28 01:50 Intake and Output 07/29/18 07/29/18 07/30/18 1515:00 23:00 07:00 IntakeIntake Total 150 ml 600 ml 400 ml BalanceBalance 150 ml 600 ml 400 ml Results Results 24hrs Laboratory Tests Test 07/30/18 05:38 White Blood Count 8.3 Red Blood Count 4.04 L Hemoglobin 11.6 #L Hematocrit 33.9 L Mean Corpuscular Volume 83.9 Mean Corpuscular Hemoglobin 28.7 L Mean Corpuscular Hemoglobin Concent 34.2 Red Cell Distribution Width 14.8 H Platelet Count 319 Mean Platelet Volume 10.0 Immature Granulocytes % 1.600 H Neutrophils % 63.6 Lymphocytes % 18.4 Monocytes % 7.6 Eosinophils % 8.3 H Basophils % 0.5 Nucleated Red Blood Cells % 0.0 Immature Granulocytes # 0.130 H Neutrophils # 5.3 Lymphocytes # 1.5 Monocytes # 0.6 Eosinophils # 0.7 H Basophils # 0.0 Nucleated Red Blood Cells # 0.0 Sodium Level 140 Potassium Level 3.6 Chloride Level 108 Carbon Dioxide Level 23 Anion Gap 9 Blood Urea Nitrogen 8 Creatinine 0.63 Est Glomerular Filtrat Rate mL/min Glucose Level 107 Calcium Level 9.3 Magnesium Level 1.9 Total Bilirubin 0.2 Direct Bilirubin 0.00 Indirect Bilirubin 0.2 Aspartate Amino Transf (AST/SGOT) 30 Alanine Aminotransferase (ALT/SGPT) 26 Alkaline Phosphatase 135 H Total Protein 6.3 Albumin 3.3 Globulin 3.00 Albumin/Globulin Ratio 1.10 Lipase 316 H Medications Medication Current Medications IV Flush (NS 3 ml) 3 ml PER PROTOCOL IV ; Start 07/23/18 at 02:30 Morphine Sulfate (morphine) 2 mg Q4H PRN IV .SEVERE PAIN 7-10 Last administered on 07/28/18 18:12; Admin Dose 2 MG; Start 07/23/18 at 02:30 Acetaminophen (Tylenol Tab) 650 mg Q6H PRN PO MILD PAIN(1-3)OR ELEVATED TEMP Last administered on 07/30/18 04:51; Admin Dose 650 MG; Start 07/23/18 at 12:30 Docusate Sodium (Colace) 100 mg BID PO Last administered on 07/30/18 08:28; Admin Dose 100 MG; Start 07/23/18 at 21:00 Pantoprazole (Protonix Iv) 40 mg DAILY@06 IV Last administered on 07/30/18 04:51; Admin Dose 40 MG; Start 07/24/18 at 06:00 Senna (Senokot) 1 tab BID PO Last administered on 07/30/18 08:29; Admin Dose 1 TAB; Start 07/24/18 at 09:30 Hydralazine HCl (Apresoline) 10 mg Q6H PRN IV sbp>160mmhg Last administered on 07/30/18 04:39; Admin Dose 10 MG; Start 07/24/18 at 09:30 Ceftriaxone Sodium 50 ml @ 100 mls/hr Q24H IVPB Last administered on 07/30/18 10:24; Admin Dose 100 MLS/HR; Start 07/24/18 at 10:00 Hydromorphone HCl (Dilaudid) 0.5 mg Q3H PRN IV SEVERE PAIN LEVEL 7-10 Last administered on 07/27/18 22:15; Admin Dose 0.5 MG; Start 07/24/18 at 09:30 Zolpidem Tartrate (Ambien) 5 mg HS PRN PO INSOMNIA Last administered on 07/29/18 22:56; Admin Dose 5 MG; Start 07/24/18 at 17:00 Aspirin (Aspirin) 81 mg DAILY PO Last administered on 07/30/18 08:27; Admin Dose 81 MG; Start 07/26/18 at 09:00 Atorvastatin Calcium (Lipitor) 80 mg HS PO Last administered on 07/29/18 22:51; Admin Dose 80 MG; Start 07/25/18 at 21:00 Nitroglycerin (Nitroglycerin (Sl Tab) 0.4 Mg) 1 tab Q5M PRN SL ANGINA Last administered on 07/27/18 09:22; Admin Dose 1 TAB; Start 07/25/18 at 18:30 Metoprolol Tartrate (Lopressor) 50 mg BID PO Last administered on 07/30/18 08:28; Admin Dose 50 MG; Start 07/26/18 at 21:00 Isosorbide Mononitrate (Imdur) 30 mg DAILY PO Last administered on 07/30/18 08:28; Admin Dose 30 MG; Start 07/26/18 at 14:00 Clopidogrel Bisulfate (plaVIX) 75 mg DAILY PO Last administered on 07/30/18 08:27; Admin Dose 75 MG; Start 07/26/18 at 14:00 Lisinopril (Zestril) 40 mg DAILY PO Last administered on 07/30/18 08:27; Admin Dose 40 MG; Start 07/26/18 at 14:00 Albuterol/ Ipratropium (Duoneb) 3 ml Q2H RESP THERAPY PRN HHN sob; Start 07/27/18 at 09:30 Alprazolam (Xanax) 0.5 mg Q12H PRN PO ANXIETY; Start 07/27/18 at 16:30 Acetaminophen (Tylenol Tab) 650 mg Q4H PRN PO NON-CARDIAC PAIN LEVEL (1-3); Start 07/28/18 at 15:30 Al Hydrox/Mg Hydrox/Simethicone (Mag-Al Plus) 30 ml Q4H PRN PO GASTROINTESTINAL UPSET; Start 07/28/18 at 15:30 Ondansetron HCl (Zofran Inj) 4 mg Q4H PRN IV NAUSEA AND/OR VOMITING; Start 07/28/18 at 15:30 ALISE AGUILAR V. [employer] WORKER Jul 30, 2018 10:42
--- NOTE | 2018-07-30 12:11 | CONS ---
Assessment/Plan Assessment/Plan Hospital Course (Demo Recall) 1. NSTEMI-mildly positive troponin. EF 55% by echo this admit. Now s/p LHC with no sig major epicardial stenosis 2. Abnormal electrocardiogram with right bundle branch block with nonspecific S T-T wave changes. 3. Hypertension-labile 4. Dyslipidemia. 5. Pancreatitis. 6. Thyroid nodule. Recc: -Tele -serial ecg's -Continue asa/plavix -Continue BB/zestril s/p increase and follow labile BP closely with possible need to add additional antihypertesnives -Continue imdur -pnding ERCP Consultation Date/Type/Reason Admit Date/Time Jul 23, 2018 at 00:37 Initial Consult Date 07/24/18 Type of Consult Cardiology Reason for Consultation Nstemi Requesting Provider: CALVIN MAZA Date/Time of Note DATE: 07/30/18 TIME: 12:09 Exam/Review of Systems Vital Signs Vitals Vital Signs Date Temp Pulse Resp B/P (MAP) Pulse Ox O2 O2 Flow FiO2 Time Delivery Rate 07/30/18 98.3 65 18 131/68 98 Room Air 11:22 (89) 07/28/18 2.0 28 01:50 Intake and Output 07/29/18 07/29/18 07/30/18 1515:00 23:00 07:00 IntakeIntake Total 150 ml 600 ml 400 ml BalanceBalance 150 ml 600 ml 400 ml Exam Exam Review of Systems: CONSTITUTIONAL: No fevers, chills. PULMONARY: No sob CARDIOVASCULAR: No chest pain/palpitations GASTROINTESTINAL: No nausea/vomiting. GENITOURINARY: No hematuria/dysuria. MUSCULOSKELETAL: No myagias/arthalgias. PSYCHIATRIC: The patient denies depression. NEUROLOGIC: No weakness Constitutional: alert Psych: no complaints Head: normocephalic ENMT: mucosa pink and moist Neck: supple, jvd (9 cm water) Respiratory: diminished breath sounds Cardiovascular: regular rate and rhythm Gastrointestinal: soft, non-tender Musculoskeletal: muscle tone (normal) Extremities: edema (none) Labs Result Diagram: 07/30/18 0538 07/30/18 0538 Results 24hrs Laboratory Tests Test 07/30/18 05:38 White Blood Count 8.3 Red Blood Count 4.04 L Hemoglobin 11.6 #L Hematocrit 33.9 L Mean Corpuscular Volume 83.9 Mean Corpuscular Hemoglobin 28.7 L Mean Corpuscular Hemoglobin Concent 34.2 Red Cell Distribution Width 14.8 H Platelet Count 319 Mean Platelet Volume 10.0 Immature Granulocytes % 1.600 H Neutrophils % 63.6 Lymphocytes % 18.4 Monocytes % 7.6 Eosinophils % 8.3 H Basophils % 0.5 Nucleated Red Blood Cells % 0.0 Immature Granulocytes # 0.130 H Neutrophils # 5.3 Lymphocytes # 1.5 Monocytes # 0.6 Eosinophils # 0.7 H Basophils # 0.0 Nucleated Red Blood Cells # 0.0 Sodium Level 140 Potassium Level 3.6 Chloride Level 108 Carbon Dioxide Level 23 Anion Gap 9 Blood Urea Nitrogen 8 Creatinine 0.63 Est Glomerular Filtrat Rate mL/min Glucose Level 107 Calcium Level 9.3 Magnesium Level 1.9 Total Bilirubin 0.2 Direct Bilirubin 0.00 Indirect Bilirubin 0.2 Aspartate Amino Transf (AST/SGOT) 30 Alanine Aminotransferase (ALT/SGPT) 26 Alkaline Phosphatase 135 H Total Protein 6.3 Albumin 3.3 Globulin 3.00 Albumin/Globulin Ratio 1.10 Lipase 316 H Medications Medications Current Medications IV Flush (NS 3 ml) 3 ml PER PROTOCOL IV ; Start 07/23/18 at 02:30 Morphine Sulfate (morphine) 2 mg Q4H PRN IV .SEVERE PAIN 7-10 Last administered on 07/28/18 18:12; Admin Dose 2 MG; Start 07/23/18 at 02:30 Acetaminophen (Tylenol Tab) 650 mg Q6H PRN PO MILD PAIN(1-3)OR ELEVATED TEMP Last administered on 07/30/18 04:51; Admin Dose 650 MG; Start 07/23/18 at 12:30 Docusate Sodium (Colace) 100 mg BID PO Last administered on 07/30/18 08:28; Admin Dose 100 MG; Start 07/23/18 at 21:00 Pantoprazole (Protonix Iv) 40 mg DAILY@06 IV Last administered on 07/30/18 04:51; Admin Dose 40 MG; Start 07/24/18 at 06:00 Senna (Senokot) 1 tab BID PO Last administered on 07/30/18 08:29; Admin Dose 1 TAB; Start 07/24/18 at 09:30 Hydralazine HCl (Apresoline) 10 mg Q6H PRN IV sbp>160mmhg Last administered on 07/30/18 04:39; Admin Dose 10 MG; Start 07/24/18 at 09:30 Ceftriaxone Sodium 50 ml @ 100 mls/hr Q24H IVPB Last administered on 07/30/18 10:24; Admin Dose 100 MLS/HR; Start 07/24/18 at 10:00 Hydromorphone HCl (Dilaudid) 0.5 mg Q3H PRN IV SEVERE PAIN LEVEL 7-10 Last administered on 07/27/18 22:15; Admin Dose 0.5 MG; Start 07/24/18 at 09:30 Zolpidem Tartrate (Ambien) 5 mg HS PRN PO INSOMNIA Last administered on 07/29/18 22:56; Admin Dose 5 MG; Start 07/24/18 at 17:00 Aspirin (Aspirin) 81 mg DAILY PO Last administered on 07/30/18 08:27; Admin Dose 81 MG; Start 07/26/18 at 09:00 Atorvastatin Calcium (Lipitor) 80 mg HS PO Last administered on 07/29/18 22:51; Admin Dose 80 MG; Start 07/25/18 at 21:00 Nitroglycerin (Nitroglycerin (Sl Tab) 0.4 Mg) 1 tab Q5M PRN SL ANGINA Last administered on 07/27/18 09:22; Admin Dose 1 TAB; Start 07/25/18 at 18:30 Metoprolol Tartrate (Lopressor) 50 mg BID PO Last administered on 07/30/18 08:28; Admin Dose 50 MG; Start 07/26/18 at 21:00 Isosorbide Mononitrate (Imdur) 30 mg DAILY PO Last administered on 07/30/18 08:28; Admin Dose 30 MG; Start 07/26/18 at 14:00 Clopidogrel Bisulfate (plaVIX) 75 mg DAILY PO Last administered on 07/30/18 08:27; Admin Dose 75 MG; Start 07/26/18 at 14:00 Lisinopril (Zestril) 40 mg DAILY PO Last administered on 07/30/18 08:27; Admin Dose 40 MG; Start 07/26/18 at 14:00 Albuterol/ Ipratropium (Duoneb) 3 ml Q2H RESP THERAPY PRN HHN sob; Start 07/27/18 at 09:30 Alprazolam (Xanax) 0.5 mg Q12H PRN PO ANXIETY; Start 07/27/18 at 16:30 Acetaminophen (Tylenol Tab) 650 mg Q4H PRN PO NON-CARDIAC PAIN LEVEL (1-3); Start 07/28/18 at 15:30 Al Hydrox/Mg Hydrox/Simethicone (Mag-Al Plus) 30 ml Q4H PRN PO GASTROINTESTINAL UPSET; Start 07/28/18 at 15:30 Ondansetron HCl (Zofran Inj) 4 mg Q4H PRN IV NAUSEA AND/OR VOMITING; Start at 15:30 VENKATA LEDBETTER Jul 30, 2018 12:11
--- NOTE | 2018-07-30 14:53 | PN ---
Date/Time of Note Date/Time of Note DATE: 07/30/18 TIME: 14:48 Assessment/Plan VTE Prophylaxis Risk score (from Ns)>0 risk: 5 SCD applied (from Ns): Yes Pharmacological prophylaxis: heparin Lines/Catheters IV Catheter Type [facility]from [facility]): Saline Lock Urinary Cath still in place: No Assessment/Plan Assessment/Plan Assessment: Gallstone pancreatitis Rule out choledocholithiasis -filling defect in distal common bile duct on MRCP Transaminitis Leukocytosis Epigastric pain Hypertension Hyperlipidemia Arthritis Chest pain with elevated troponin - r/o TN Plan: Continue clear liquid diet Monitor Lipase - trending down Patient seen in collaboration with Dr. More Subjective: Patient is doing well. She denies nausea or vomiting. Complaining of upper abdominal discomfort. Current lipase is 300. MRCP was negative for choledocholithiasis. LFTs and bilirubin within normal. Case has been discussed with Dr. More -since the patient is asymptomatic and imaging is negative for o bstruction ERCP has been canceled. We will advance diet to full liquid. PHYSICAL EXAMINATION: GENERAL: Well developed, well nourished, alert & oriented x 3, in no acute distress SKIN: No lesions, no stigmata chronic liver disease, no evidence of bleeding diathesis LYMPHATIC: No palpable lymphadenopathy. HEAD: Normocephalic, atraumatic, no tenderness. EYES: Pupils equal reactive to light and accommodation, full extraocular movements, sclera clear, non-icteric, no discharge. EARS/NOSE AND THROAT: Ears normal, nose normal, oropharynx normal, oral membranes well hydrated without lesions. NECK: Supple, no masses, thyroid normal, JVP within normal limits, carotids normal without bruits. CHEST: Inspection within normal limits. CARDIOVASCULAR: Heart: Regular rate and rhythm, no murmurs, gallops or rubs. Peripheral pulses present within normal limits, no cyanosis, clubbing or edemas. No pulsatile abdominal mass RESPIRATORY: Lungs clear to auscultation and percussion, no wheezing, no rubs GASTROINTESTINAL AND LIVER: Abdomen: Soft, mild upper abdominal tenderness, non- distended, no hernias, no masses, no organomegaly, no ascites, no guarding, no rebound tenderness, normoactive bowel sounds. Rectal: Deferred. GENITOURINARY: Female genitalia within normal limits. EXTREMITIES: No cyanosis, clubbing or edema. Result Diagram: 4/18/19 0538 07/30/18 0538 Results 24hrs Laboratory Tests Test 07/30/18 05:38 White Blood Count 8.3 Red Blood Count 4.04 L Hemoglobin 11.6 #L Hematocrit 33.9 L Mean Corpuscular Volume 83.9 Mean Corpuscular Hemoglobin 28.7 L Mean Corpuscular Hemoglobin Concent 34.2 Red Cell Distribution Width 14.8 H Platelet Count 319 Mean Platelet Volume 10.0 Immature Granulocytes % 1.600 H Neutrophils % 63.6 Lymphocytes % 18.4 Monocytes % 7.6 Eosinophils % 8.3 H Basophils % 0.5 Nucleated Red Blood Cells % 0.0 Immature Granulocytes # 0.130 H Neutrophils # 5.3 Lymphocytes # 1.5 Monocytes # 0.6 Eosinophils # 0.7 H Basophils # 0.0 Nucleated Red Blood Cells # 0.0 Sodium Level 140 Potassium Level 3.6 Chloride Level 108 Carbon Dioxide Level 23 Anion Gap 9 Blood Urea Nitrogen 8 Creatinine 0.63 Est Glomerular Filtrat Rate mL/min Glucose Level 107 Calcium Level 9.3 Magnesium Level 1.9 Total Bilirubin 0.2 Direct Bilirubin 0.00 Indirect Bilirubin 0.2 Aspartate Amino Transf (AST/SGOT) 30 Alanine Aminotransferase (ALT/SGPT) 26 Alkaline Phosphatase 135 H Total Protein 6.3 Albumin 3.3 Globulin 3.00 Albumin/Globulin Ratio 1.10 Lipase 316 H CC: TARYN MORE MD ; Exam/Review of Systems Exam Vitals Vital Signs Date Temp Pulse Resp B/P (MAP) Pulse Ox O2 O2 Flow FiO2 Time Delivery Rate 07/30/18 66 12:19 07/30/18 98.3 18 131/68 98 Room Air 11:22 (89) 07/28/18 2.0 28 01:50 Intake and Output 07/29/18 07/29/18 07/30/18 1515:00 23:00 07:00 IntakeIntake Total 150 ml 600 ml 400 ml BalanceBalance 150 ml 600 ml 400 ml Results Results 24hrs Laboratory Tests Test 07/30/18 05:38 White Blood Count 8.3 Red Blood Count 4.04 L Hemoglobin 11.6 #L Hematocrit 33.9 L Mean Corpuscular Volume 83.9 Mean Corpuscular Hemoglobin 28.7 L Mean Corpuscular Hemoglobin Concent 34.2 Red Cell Distribution Width 14.8 H Platelet Count 319 Mean Platelet Volume 10.0 Immature Granulocytes % 1.600 H Neutrophils % 63.6 Lymphocytes % 18.4 Monocytes % 7.6 Eosinophils % 8.3 H Basophils % 0.5 Nucleated Red Blood Cells % 0.0 Immature Granulocytes # 0.130 H Neutrophils # 5.3 Lymphocytes # 1.5 Monocytes # 0.6 Eosinophils # 0.7 H Basophils # 0.0 Nucleated Red Blood Cells # 0.0 Sodium Level 140 Potassium Level 3.6 Chloride Level 108 Carbon Dioxide Level 23 Anion Gap 9 Blood Urea Nitrogen 8 Creatinine 0.63 Est Glomerular Filtrat Rate mL/min Glucose Level 107 Calcium Level 9.3 Magnesium Level 1.9 Total Bilirubin 0.2 Direct Bilirubin 0.00 Indirect Bilirubin 0.2 Aspartate Amino Transf (AST/SGOT) 30 Alanine Aminotransferase (ALT/SGPT) 26 Alkaline Phosphatase 135 H Total Protein 6.3 Albumin 3.3 Globulin 3.00 Albumin/Globulin Ratio 1.10 Lipase 316 H Medications Medication Current Medications IV Flush (NS 3 ml) 3 ml PER PROTOCOL IV ; Start 07/23/18 at 02:30 Morphine Sulfate (morphine) 2 mg Q4H PRN IV .SEVERE PAIN 7-10 Last administered on 07/28/18 18:12; Admin Dose 2 MG; Start 07/23/18 at 02:30 Acetaminophen (Tylenol Tab) 650 mg Q6H PRN PO MILD PAIN(1-3)OR ELEVATED TEMP Last administered on 07/30/18 14:08; Admin Dose 650 MG; Start 07/23/18 at 12:30 Docusate Sodium (Colace) 100 mg BID PO Last administered on 07/30/18 08:28; Admin Dose 100 MG; Start 07/23/18 at 21:00 Pantoprazole (Protonix Iv) 40 mg DAILY@06 IV Last administered on 07/30/18 04:51; Admin Dose 40 MG; Start 07/24/18 at 06:00 Senna (Senokot) 1 tab BID PO Last administered on 07/30/18 08:29; Admin Dose 1 TAB; Start 07/24/18 at 09:30 Hydralazine HCl (Apresoline) 10 mg Q6H PRN IV sbp>160mmhg Last administered on 07/30/18 04:39; Admin Dose 10 MG; Start 07/24/18 at 09:30 Ceftriaxone Sodium 50 ml @ 100 mls/hr Q24H IVPB Last administered on 07/30/18 10:24; Admin Dose 100 MLS/HR; Start 07/24/18 at 10:00 Hydromorphone HCl (Dilaudid) 0.5 mg Q3H PRN IV SEVERE PAIN LEVEL 7-10 Last administered on 07/27/18 22:15; Admin Dose 0.5 MG; Start 07/24/18 at 09:30 Zolpidem Tartrate (Ambien) 5 mg HS PRN PO INSOMNIA Last administered on 07/29/18 22:56; Admin Dose 5 MG; Start 07/24/18 at 17:00 Aspirin (Aspirin) 81 mg DAILY PO Last administered on 07/30/18 08:27; Admin Dose 81 MG; Start 07/26/18 at 09:00 Atorvastatin Calcium (Lipitor) 80 mg HS PO Last administered on 07/29/18 22:51; Admin Dose 80 MG; Start 07/25/18 at 21:00 Nitroglycerin (Nitroglycerin (Sl Tab) 0.4 Mg) 1 tab Q5M PRN SL ANGINA Last administered on 07/27/18 09:22; Admin Dose 1 TAB; Start 07/25/18 at 18:30 Metoprolol Tartrate (Lopressor) 50 mg BID PO Last administered on 07/30/18 08:28; Admin Dose 50 MG; Start 07/26/18 at 21:00 Isosorbide Mononitrate (Imdur) 30 mg DAILY PO Last administered on 07/30/18 08:28; Admin Dose 30 MG; Start 07/26/18 at 14:00 Clopidogrel Bisulfate (plaVIX) 75 mg DAILY PO Last administered on 07/30/18 08:27; Admin Dose 75 MG; Start 07/26/18 at 14:00 Lisinopril (Zestril) 40 mg DAILY PO Last administered on 07/30/18 08:27; Admin Dose 40 MG; Start 07/26/18 at 14:00 Albuterol/ Ipratropium (Duoneb) 3 ml Q2H RESP THERAPY PRN HHN sob; Start 07/27/18 at 09:30 Alprazolam (Xanax) 0.5 mg Q12H PRN PO ANXIETY; Start 07/27/18 at 16:30 Acetaminophen (Tylenol Tab) 650 mg Q4H PRN PO NON-CARDIAC PAIN LEVEL (1-3); Start 07/28/18 at 15:30 Al Hydrox/Mg Hydrox/Simethicone (Mag-Al Plus) 30 ml Q4H PRN PO GASTROINTESTINAL UPSET; Start 07/28/18 at 15:30 Ondansetron HCl (Zofran Inj) 4 mg Q4H PRN IV NAUSEA AND/OR VOMITING; Start 07/28/18 at 15:30 AMIRA DE LA ROSA ACO COORDINATOR Jul 30, 2018 14:53
[2018-07-30] MEDS: ATORVASTATIN 80 MG TAB PO SCH (21:03)
[2018-07-30] MEDS: ZOLPIDEM 5 MG TAB PO PRN (21:07)
[2018-07-31] VITALS (9 sets, daily range): BP systolic 144–154; BP diastolic 69–73; PULSE 65–81; RESP 18–19
[2018-07-31] MEDS: PANTOPRAZOLE 40 MG INJ IV SCH (06:56)
[2018-07-31] MEDS: METOPROLOL 50 MG TAB PO SCH (08:15)
[2018-07-31] MEDS: CLOPIDOGREL 75 MG TAB PO SCH (08:15)
[2018-07-31] MEDS: ASPIRIN 81 MG TAB PO SCH (08:15)
[2018-07-31] MEDS: DOCUSATE SODIUM 100 MG CAP PO SCH (08:15)
[2018-07-31] MEDS: ISOSORBIDE MONONITRATE(SR)30 MG TAB PO SCH (08:15)
[2018-07-31] MEDS: SENNA TAB PO SCH (08:15)
[2018-07-31] MEDS: LISINOPRIL 20 MG TAB PO SCH (08:15)
--- NOTE | 2018-07-31 10:36 | PDOCDIS ---
Discharge Instructions CONDITION [id number] Patient Condition: [id number] Stable HOME CARE INSTRUCTIONS: [id number] Diet Instructions: [id number] Low Fat /Cholesterol FOLLOW UP/APPOINTMENTS Follow-up Plan Follow-up Dr. Adam in 2 weeks in his clinic. Name, Degree Jose Adam MD Specialty Interventional Cardiology Comments Office Address [address] [place] [address] Office Follow-up with primary care physician in 1 week ALISE AGUILAR NP Jul 31, 2018 10:36
[2018-07-31] MEDS ORDERED: ASPI-831 PO (10:41)
[2018-07-31] MEDS ORDERED: METO-429 PO (10:41)
[2018-07-31] MEDS ORDERED: ISOS30TA67 PO (10:41)
[2018-07-31] MEDS ORDERED: LISI-471 PO (10:41)
[2018-07-31] MEDS ORDERED: CLOP75TA28 PO (10:41)
--- NOTE | 2018-07-31 10:48 | DS ---
Date/Time of Note Date/Time of Note DATE: 07/31/18 TIME: 10:44 Discharge Summary Admission/Discharge Info Admit Date/Time Jul 23, 2018 at 00:37 Discharge Date/Time Discharge Diagnosis 1. Nonobstructive coronary artery disease/NSTEMI -Status post C 07/28/2018. 2. Diastolic dysfunction. 3. Acute biliary pancreatitis.-Resolved. 4. Essential hypertension. 5. Hyperlipidemia. 6. Incidental finding of left adnexal mass, likely benign. -Recommend follow-up CT in 3 months as outpatient. 7. Anemia, likely chronic. 8. Obesity with a BMI 32.3. Patient Condition: Stable Consults , gastroenterology Dr. Adam, laboratory assistant Procedures 07 28 2018 DATE OF PROCEDURE: 07/28/2018 TYPE OF PROCEDURES: 1. Left heart catheterization. 2. Coronary angiography. 3. Measurement of left ventricular end-diastolic pressure. 4. Aortic root angiography. 5. Moderate conscious sedation. 07/29/2018. MRCP IMPRESSION: 1. Mild dilation of the common bile duct with no obstructive mass or stone. No intrahepatic biliary ductal dilation. 2. Moderately distended gallbladder without cholelithiasis, pericholecystic fluid or wall thickening. 07/23/2018. MRI. IMPRESSION: 1. Mild extrahepatic biliary ductal dilatation with 8 mm filling defect in distal CBD near the ampulla, could represent ductal stone. Differential diagnosis includes small obstructing mass. Further evaluation is limited due to lack of intravenous contrast. Recommend correlation with ERCP. 2. No evidence of cholelithiasis or acute cholecystitis. 3. No intrahepatic biliary ductal dilatation. 4. Mild peripancreatic edema, recommend correlation with laboratory data to exclude acute pancreatitis. 5. Trace left perinephric fluid. 6. Trace perihepatic and perisplenic fluid. 07/22/2018. Ultrasound abdomen IMPRESSION: 1. Hepatomegaly with moderate fatty infiltration. 2. Prominence of the extrahepatic common bile duct, which may be related to prior episodes of biliary colic. 3. Otherwise, normal sonographic findings of the abdomen. No evidence of gallstones or cholecystitis. 07/26/2018 2D echocardiogram Conclusions: Normal left ventricular systolic function. Normal left ventricular cavity size. Mild concentric left ventricular hypertrophy. Ejection fraction is visually estimated at 55 %. Tissue Doppler/Mitral Doppler indices are consistent with impaired relaxation (Stage I diastolic dysfunction). Normal right ventricular size. Normal right ventricular systolic function. Mild mitral annular calcification. Mild mitral valve regurgitation. Aortic cusps appear mildly calcified. Trace aortic valve regurgitation. n. Normal appearance of the tricuspid valve. Estimated peak PA systolic pressure 33 mmHg. There is mild tricuspid regurgitation. Normal pericardium with no significant pericardial effusion. Left pleural effusion seen. Electronically Signed By: Werner Galindo 2018-07-26 15:39:15 PDT Hospital Course 37-year-old female with a history of hypertension, anemia, hepatic steatosis, admitted with periumbilical/right-sided abdominal pain, found to have acute biliary pancreatitis, also found to have chest pain with non-ST elevated myocardial infarction. Patient was treated conservatively for clearly pancreatitis. She underwent LHC on 07/28/2018, showed nonobstructive coronary artery disease. Patient was continued on medical management including antiplatelets, statin, beta-blockers, nitrates and JOSEPH inhibitors. Patient is being followed by laboratory assistant closely. Patient's blood pressure remained stable. She did not have any further chest pain. Troponin trended down. After this, plan was to do ERCP secondary to choledocholithiasis. However, a repeat MRI showed no further dilatation of CBD, as such, no further ERCP indicated per our GI team. Pancreatitis resolved. Patient was able to tolerate diet and activities well. Hospitalization was also noted for incidental finding of left adnexal mass likely benign for which a repeat CT in 3 months as outpatient was recommended. Patient was also counseled on lifestyle changes secondary to obesity. Patient is very eager to be discharged home. She is cleared from GI standpoint. Patient has no further abdominal pain, tolerating diet, stable LFTs. At this time, we will discharge patient with outpatient cardiology follow-up Approximately 60 m spent on coordinating the discharge on this patient. Patient was seen in collaboration with Dr. Nguyen. Home Meds Active Scripts Aspirin (Aspirin) 81 Mg Chew, 81 MG PO DAILY, #30 TAB Prov:AGUILAR,ALISE V. [employer] 07/31/18 Metoprolol Tartrate* (Lopressor*) 50 Mg Tab, 50 MG PO BID, #60 TAB Prov:AGUILAR,ALISE V. [employer] 07/31/18 Lisinopril* (Lisinopril*) 20 Mg Tablet, 40 MG PO DAILY, #30 TAB Prov:AGUILAR,ALISE V. [employer] 07/31/18 Isosorbide Mononitrate* (Isosorbide Mononitrate*) 30 Mg Tab.er.24h, 30 MG PO DAILY, #30 TAB Prov:ALISE AGUILAR V. [employer] 07/31/18 Clopidogrel Bisulfate (Clopidogrel) 75 Mg Tablet, 75 MG PO DAILY, #30 TAB Prov:ALISE AGUILAR V. [employer] 07/31/18 Reported Medications Naproxen* (Naproxen*) 125 Mg/5 Ml Oral.susp, 500 MG PO BID, ML 07/23/18 Sennosides* (Senna Lax*) 8.6 Mg Tablet, 1 TAB PO BID, TAB 07/23/18 Tramadol Hcl* (Ultram*) 50 Mg Tablet, 50 MG PO Q6H PRN for PAIN, TAB 07/23/18 Magnesium Oxide* (Mag-Oxide*) 400 Mg Tablet, 400 MG PO QWED AND FRIDAY, TAB 07/23/18 Simvastatin (Simvastatin) 40 Mg Tablet, 40 MG PO HS, TAB 10/25/14 Lisinopril* (Lisinopril*) 10 Mg Tablet, 10 MG PO BID, TAB 10/25/14 Follow-up Plan Follow-up Dr. Adam in 2 weeks in his clinic. Name, Degree Jose Adam MD Specialty Interventional Cardiology Comments Office Address [address] [place] [address] Office Follow-up with primary care physician in 1 week Primary Care Provider ALISE Bowser NP Jul 31, 2018 10:48
[2018-07-31] MEDS: CEFTRIAXONE 1 GM/50 ML (PMX) 50 ML IVPB SCH (10:56)
[2018-07-31] MEDS: ACETAMINOPHEN 325 MG TAB PO PRN (14:21)
--- NOTE | 2018-07-31 15:01 | CONS ---
Assessment/Plan Assessment/Plan Hospital Course (Demo Recall) 1. NSTEMI-mildly positive troponin. EF 55% by echo this admit. Now s/p LHC with no sig major epicardial stenosis 2. Abnormal electrocardiogram with right bundle branch block with nonspecific S T-T wave changes. 3. Hypertension-labile 4. Dyslipidemia. 5. Pancreatitis. 6. Thyroid nodule. Recc: -Tele -serial ecg's -Continue asa/plavix -Continue BB/zestril s/p increase and follow labile but overall reasonable BP closely -Continue imdur -ERCP cancelled Consultation Date/Type/Reason Admit Date/Time Jul 23, 2018 at 00:37 Initial Consult Date 07/24/18 Type of Consult Cardiology Reason for Consultation nstemi Requesting Provider: CALVIN MAZA Date/Time of Note DATE: 07/31/18 TIME: 14:59 Exam/Review of Systems Vital Signs Vitals Vital Signs Date Temp Pulse Resp B/P (MAP) Pulse Ox O2 O2 Flow FiO2 Time Delivery Rate 07/31/18 73 12:08 07/31/18 98.0 18 151/70 90 11:13 (97) 07/30/18 Room Air 16:00 07/28/18 2.0 28 01:50 Intake and Output 07/30/18 07/30/18 07/31/18 1515:00 23:00 07:00 IntakeIntake Total 480 ml 400 ml BalanceBalance 480 ml 400 ml Exam Exam Review of Systems: CONSTITUTIONAL: No fevers, chills. PULMONARY: No sob CARDIOVASCULAR: No chest pain/palpitations GASTROINTESTINAL: No nausea/vomiting. GENITOURINARY: No hematuria/dysuria. MUSCULOSKELETAL: No myagias/arthalgias. PSYCHIATRIC: The patient denies depression. NEUROLOGIC: No weakness Constitutional: alert Psych: no complaints Head: normocephalic ENMT: mucosa pink and moist Neck: supple, jvd (9 cm water) Respiratory: clear to auscultation Cardiovascular: regular rate and rhythm Gastrointestinal: soft, non-tender Musculoskeletal: muscle tone (normal) Extremities: edema (none) Neurological: other (No focal deficits) Labs Result Diagram: 07/30/18 0538 07/30/18 0538 Medications Medications Current Medications IV Flush (NS 3 ml) 3 ml PER PROTOCOL IV ; Start 07/23/18 at 02:30 Morphine Sulfate (morphine) 2 mg Q4H PRN IV .SEVERE PAIN 7-10 Last administered on 07/28/18 18:12; Admin Dose 2 MG; Start 07/23/18 at 02:30 Acetaminophen (Tylenol Tab) 650 mg Q6H PRN PO MILD PAIN(1-3)OR ELEVATED TEMP Last administered on 07/31/18 14:21; Admin Dose 650 MG; Start 07/23/18 at 12:30 Docusate Sodium (Colace) 100 mg BID PO Last administered on 07/31/18 08:15; Admin Dose 100 MG; Start 07/23/18 at 21:00 Pantoprazole (Protonix Iv) 40 mg DAILY@06 IV Last administered on 07/31/18 06:56; Admin Dose 40 MG; Start 07/24/18 at 06:00 Senna (Senokot) 1 tab BID PO Last administered on 07/31/18 08:15; Admin Dose 1 TAB; Start 07/24/18 at 09:30 Hydralazine HCl (Apresoline) 10 mg Q6H PRN IV sbp>160mmhg Last administered on 07/30/18 04:39; Admin Dose 10 MG; Start 07/24/18 at 09:30 Ceftriaxone Sodium 50 ml @ 100 mls/hr Q24H IVPB Last administered on 07/31/18 10:56; Admin Dose 100 MLS/HR; Start 07/24/18 at 10:00 Hydromorphone HCl (Dilaudid) 0.5 mg Q3H PRN IV SEVERE PAIN LEVEL 7-10 Last admi nistered on 07/27/18 22:15; Admin Dose 0.5 MG; Start 07/24/18 at 09:30 Zolpidem Tartrate (Ambien) 5 mg HS PRN PO INSOMNIA Last administered on 07/30/18 21:07; Admin Dose 5 MG; Start 07/24/18 at 17:00 Aspirin (Aspirin) 81 mg DAILY PO Last administered on 07/31/18 08:15; Admin Dose 81 MG; Start 07/26/18 at 09:00 Atorvastatin Calcium (Lipitor) 80 mg HS PO Last administered on 07/30/18 21:03; Admin Dose 80 MG; Start 07/25/18 at 21:00 Nitroglycerin (Nitroglycerin (Sl Tab) 0.4 Mg) 1 tab Q5M PRN SL ANGINA Last administered on 07/27/18at 09:22; Admin Dose 1 TAB; Start 07/25/18 at 18:30 Metoprolol Tartrate (Lopressor) 50 mg BID PO Last administered on 07/31/18 08:15; Admin Dose 50 MG; Start 07/26/18 at 21:00 Isosorbide Mononitrate (Imdur) 30 mg DAILY PO Last administered on 07/31/18 08:15; Admin Dose 30 MG; Start 07/26/18 at 14:00 Clopidogrel Bisulfate (plaVIX) 75 mg DAILY PO Last administered on 07/31/18 08:15; Admin Dose 75 MG; Start 07/26/18 at 14:00 Lisinopril (Zestril) 40 mg DAILY PO Last administered on 07/31/18 08:15; Admin Dose 40 MG; Start 07/26/18 at 14:00 Albuterol/ Ipratropium (Duoneb) 3 ml Q2H RESP THERAPY PRN HHN sob; Start 07/27/18 at 09:30 Alprazolam (Xanax) 0.5 mg Q12H PRN PO ANXIETY; Start 07/27/18 at 16:30 Acetaminophen (Tylenol Tab) 650 mg Q4H PRN PO NON-CARDIAC PAIN LEVEL (1-3); Start 07/28/18 at 15:30 Al Hydrox/Mg Hydrox/Simethicone (Mag-Al Plus) 30 ml Q4H PRN PO GASTROINTESTINAL UPSET; Start 07/28/18 at 15:30 Ondansetron HCl (Zofran Inj) 4 mg Q4H PRN IV NAUSEA AND/OR VOMITING; Start 07/28/18 at 15:30 VENKATA LEDBETTER Jul 31, 2018 15:01
== END 2018-07-31 16:39 | disposition home or self-care (01) | DRG 438 ==
LOC: E/R 20:26 → PP2 07-23 00:37 → 6WM 07-25 17:55
PROVIDERS: ADMIT Internal Medicine; ATTEND Family Medicine
PROC: B211YZZ Fluoroscopy of Multiple Coronary Arteries using Other Contrast (ICD-10-PCS; 2018-07-28)
PROC: B310YZZ Fluoroscopy of Thoracic Aorta using Other Contrast (ICD-10-PCS; 2018-07-28)
PROC: 4A023N7 Measurement of Cardiac Sampling and Pressure, Left Heart, Percutaneous Approach (ICD-10-PCS; principal; 2018-07-28 12:30)
DX: K85.10 Biliary acute pancreatitis without necrosis or infection (principal); I21.4 Non-ST elevation (NSTEMI) myocardial infarction; E87.1 Hypo-osmolality and hyponatremia; I24.9 Acute ischemic heart disease, unspecified; I25.10 Atherosclerotic heart disease of native coronary artery without angina pectoris; R16.0 Hepatomegaly, not elsewhere classified; K76.0 Fatty (change of) liver, not elsewhere classified; I45.10 Unspecified right bundle-branch block; E78.5 Hyperlipidemia, unspecified; I10 Essential (primary) hypertension; D50.9 Iron deficiency anemia, unspecified; N28.9 Disorder of kidney and ureter, unspecified; E66.9 Obesity, unspecified; Z68.32 Body mass index [BMI] 32.0-32.9, adult; M19.90 Unspecified osteoarthritis, unspecified site; E04.1 Nontoxic single thyroid nodule; D72.829 Elevated white blood cell count, unspecified; K80.20 Calculus of gallbladder without cholecystitis without obstruction
CPT/HCPCS: 71045; 74178; 74181; 76705; 76775; 80048; 80053; 80061; 81001; 81003; 82150; 82962; 83036; 83690; 83735; 83880; 84100; 84300; 84484; 85025; 85610; 85730; 87086; 93005; 93306; 93458; 94664; 96374; 96375; 97161; C1887; C9113; J0360; J0696; J1170; J1200; J1644; J1650; J1940; J2250; J2270; J2405; J2543; J3010; J3475; J7030; J7042; Q9967

== ENCOUNTER 2018-08-12 12:23 | Inpatient (IN) | payer OTHER, MEDICAID ==
[~2018-08-12] VITALS: Ht 154.9 cm; Wt 76.7 kg
[~2018-08-12 12:23] MED LIST changes: +ASPI-831 PO; +CLOP75TA28 PO; -GABA100C14 PO; +ISOS30TA67 PO; +LISI-471 PO; -LISI10TA2 PO; -Lidocaine TD; +MAGN400T27 PO; -MECL12.5 PO; +METO-429 PO; +SENN-120 PO
[2018-08-12] MEDS ORDERED: SIMV40TA2 PO (13:57)
[2018-08-12] MEDS ORDERED: LISI10TA2 PO (13:58)
[2018-08-12] MEDS ORDERED: ONDA4TAB13 PO (13:59)
[2018-08-12] MEDS ORDERED: TRAM50TA PO (13:59)
[2018-08-12] MEDS ORDERED: NAPR-688 PO (14:00)
[2018-08-12] MEDS ORDERED: SOD CHLORIDE 0.9% 1,000 ML IV STA (14:15)
[2018-08-12] MEDS ORDERED: ONDANSETRON 4 MG INJ IV STA (14:15)
[2018-08-12] MEDS ORDERED: morphine 4 MG/ML VIAL IV STA (14:15)
[2018-08-12] MEDS ORDERED: MECLIZINE 12.5 MG TAB PO ONE (14:30)
[2018-08-12] MEDS ORDERED: DIPHENHYDRAMINE 50 MG INJ IV STA (16:29)
[2018-08-12] MEDS ORDERED: METOCLOPRAMIDE 10 MG INJ IV STA (16:29)
[2018-08-12] MEDS ORDERED: HYDROmorphONE 1 MG/ML SYG IV STA (16:29)
--- NOTE | 2018-08-12 17:28 | ERD ---
ER Documentation Chief Complaint Chief Complaint sob x2d, gen weak+ loss of appetite. denies NVD. no asthma, hx HTN. HPI 77-year-old female who is here for multiple complaints. She states she has chronic neck pain and headache and she does feel like she is vertiginous on occasion especially when she moves around. She is also complaining that twice she got short of breath and near syncopal. Patient states that yesterday she was standing in line to pay her gas bill when she became short of breath, dizzy and almost passed out. The family caught her from falling. She says the same symptoms happened again this morning. She has no chest pain. The patient was admitted recently for a non-STEMI and underwent a left heart cath which showed no coronary artery disease. No abdominal pain no focal neurological complaints no GI symptoms ROS All systems reviewed and are negative except as per history of present illness. Medications Home Meds Active Scripts Aspirin (Aspirin) 81 Mg Chew, 81 MG PO DAILY, #30 TAB Prov:ALISE AGUILAR V. INDUCTION HEATING EQUIPMENT SETTER 07/31/18 Metoprolol Tartrate* (Lopressor*) 50 Mg Tab, 50 MG PO BID, #60 TAB Prov:ALISE AGUILAR V. INDUCTION HEATING EQUIPMENT SETTER 07/31/18 Isosorbide Mononitrate* (Isosorbide Mononitrate*) 30 Mg Tab.er.24h, 30 MG PO DAILY, #30 TAB Prov:ALISE AGUILAR V. INDUCTION HEATING EQUIPMENT SETTER 07/31/18 Clopidogrel Bisulfate (Clopidogrel) 75 Mg Tablet, 75 MG PO DAILY, #30 TAB Prov:ALISE AGUILAR V. INDUCTION HEATING EQUIPMENT SETTER 07/31/18 Reported Medications Naproxen* (Naproxen*) 500 Mg Tablet, 500 MG PO BID, TAB 08/12/18 Tramadol Hcl* (Ultram*) 50 Mg Tablet, 50 MG PO Q6H PRN for PAIN, TAB 08/12/18 Ondansetron Hcl* (Zofran*) 4 Mg Tab, 4 MG PO Q6H PRN for NAUSEA AND OR VOMITING, TAB 08/12/18 Lisinopril* (Lisinopril*) 10 Mg Tablet, 10 MG PO DAILY, #30 TAB 08/12/18 Simvastatin* (Zocor*) 40 Mg Tablet, 40 MG PO QHS, #30 TAB 08/12/18 Magnesium Oxide* (Mag-Oxide*) 400 Mg Tablet, 400 MG PO QWED AND FRIDAY, TAB 07/23/18 Discontinued Reported Medications Sennosides* (Senna Lax*) 8.6 Mg Tablet, 1 TAB PO BID, TAB 07/23/18 Simvastatin (Simvastatin) 40 Mg Tablet, 40 MG PO HS, TAB 10/25/14 Discontinued Scripts Lisinopril* (Lisinopril*) 20 Mg Tablet, 40 MG PO DAILY, #30 TAB Prov:ALISE AGUILAR V. INDUCTION HEATING EQUIPMENT SETTER 07/31/18 Allergies Allergies: Coded Allergies: codeine (Verified Allergy, Mild, 08/12/18) SOB, N/V PMhx/Soc History of Surgery: Yes (left leg sx, ) Anesthesia Reaction: No Hx Neurological Disorder: No Hx Respiratory Disorders: No Hx Cardiac Disorders: Yes (HTN, HIGH CHOLESTEROL) Hx Psychiatric Problems: No Hx Miscellaneous Medical Probl: Yes (HTN, dyslipidemia) Hx Alcohol Use: No Hx Substance Use: No Hx Tobacco Use: No Smoking Status: Never smoker FmHx Family History: No coronary disease Physical Exam Vitals Vital Signs Date Temp Pulse Resp B/P (MAP) Pulse Ox O2 O2 Flow FiO2 Time Delivery Rate 08/12/18 69 14 162/67 99 Room Air 18:37 (98) 08/12/18 63 20 168/85 98 Nasal 16:54 (112) Cannula 08/12/18 Nasal 2.0 14:15 Cannula 08/12/18 97.8 70 20 204/105 99 12:33 (138) Physical Exam Const: Well-developed, well-nourished Head: Atraumatic, normocephalic Eyes: Normal Conjunctiva, PERRLA, EOMI, normal sclera, no nystagmus ENT: Normal External Ears, Nose and Mouth, moist mucus membranes. Neck: Full range of motion. No meningismus, no lymphadenopathy. Resp: Clear to auscultation bilaterally, no wheezing, rhonchi, rales Cardio: Regular rate and rhythm, no murmurs, S1 S2 present Abd: Soft, non tender x 4, non distended. Normal bowel sounds, no guarding or rebound, no pulsitile abdominal masses or bruits Skin: No petechiae or rashes, no ecchymosis , no maculopapular rash Back: No midline or flank tenderness Ext: No cyanosis, or edema, FROM x 4, normal inspection, neurovascularly intact x 4 Neur: Awake and alert, STR 5/5 x 4, sensation intact x 4, no focal findings, cerebellum intact Psych: Normal Mood and Affect Result Diagram: 08/12/18 1435 08/12/18 1435 Results 24 hrs Laboratory Tests Test 08/12/18 14:35 08/12/18 14:50 White Blood Count 7.9 10^3/ul Red Blood Count 3.90 10^6/ul Hemoglobin 11.0 g/dl Hematocrit 33.5 % Mean Corpuscular Volume 85.9 fl Mean Corpuscular Hemoglobin 28.2 pg Mean Corpuscular Hemoglobin Concent 32.8 g/dl Red Cell Distribution Width 14.8 % Platelet Count 268 10^3/UL Mean Platelet Volume 10.5 fl Immature Granulocytes % 0.100 % Neutrophils % 55.8 % Lymphocytes % 30.8 % Monocytes % 7.4 % Eosinophils % 5.0 % Basophils % 0.9 % Nucleated Red Blood Cells % 0.0 /100WBC Immature Granulocytes # 0.010 10^3/ul Neutrophils # 4.4 10^3/ul Lymphocytes # 2.4 10^3/ul Monocytes # 0.6 10^3/ul Eosinophils # 0.4 10^3/ul Basophils # 0.1 10^3/ul Nucleated Red Blood Cells # 0.0 10^3/ul Sodium Level 133 mmol/L Potassium Level 4.2 mmol/L Chloride Level 101 mmol/L Carbon Dioxide Level 22 mmol/L Anion Gap 10 Blood Urea Nitrogen 12 mg/dl Creatinine 0.56 mg/dl Est Glomerular Filtrat Rate mL/min mL/min Glucose Level 101 mg/dl Calcium Level 9.7 mg/dl Total Bilirubin 0.3 mg/dl Direct Bilirubin 0.00 mg/dl Indirect Bilirubin 0.3 mg/dl Aspartate Amino Transf (AST/SGOT) 31 IU/L Alanine Aminotransferase (ALT/SGPT) 23 IU/L Alkaline Phosphatase 113 IU/L Troponin I < 0.012 ng/ml Total Protein 7.3 g/dl Albumin 4.0 g/dl Globulin 3.30 g/dl Albumin/Globulin Ratio 1.21 Urine Color YELLOW Urine Clarity SLIGHTLY CLOUDY Urine pH 7.0 Urine Specific [place] 1.004 Urine Ketones NEGATIVE mg/dL Urine Nitrite NEGATIVE mg/dL Urine Bilirubin NEGATIVE mg/dL Urine Urobilinogen NEGATIVE mg/dL Urine Leukocyte Esterase NEGATIVE Lu/ul Urine Microscopic RBC 1 /HPF Urine Microscopic WBC 0 /HPF Urine Hemoglobin NEGATIVE mg/dL Urine Glucose NEGATIVE mg/dL Urine Total Protein NEGATIVE mg/dl Current Medications Medications Dose Sig/Juan Carlos Start Time Status Last (Trade) Ordered Route PRN Stop Time Admin Dose Reason Admin Sodium 1,000 ml @ Q1H STAT 08/12/18 DC 08/12/18 Chloride 1,000 mls/hr IV 14:15 08/12/18 15:11 15:14 Morphine 4 mg ONCE STAT 08/12/18 DC 08/12/18 Sulfate IV 14:15 08/12/18 15:11 (morphine) 14:17 Ondansetron 4 mg ONCE STAT 08/12/18 DC 08/12/18 HCl (Zofran IV 14:15 08/12/18 15:11 Inj) 14:17 Meclizine 25 mg ONCE ONCE 08/12/18 DC 08/12/18 HCl PO 14:30 08/12/18 15:11 (Antivert) 14:31 5 mg ONCE STAT 08/12/18 DC 08/12/18 Metoclopramid IV 16:29 08/12/18 16:38 e HCl 16:31 (Reglan) 0.5 mg ONCE STAT 08/12/18 DC 08/12/18 Hydromorphone IV 16:29 08/12/18 16:38 HCl 16:31 (Dilaudid) 25 mg ONCE STAT 08/12/18 DC 08/12/18 Diphenhydrami IV 16:29 08/12/18 16:38 ne HCl 16:31 (Benadryl) IV Flush 10 ml STK-MED 08/12/18 DC (NS 10 ml) ONCE .ROUTE 17:48 08/12/18 17:49 Sodium 100 ml @ ud STK-MED 08/12/18 DC Chloride ONCE .ROUTE 17:48 08/12/18 17:49 Iohexol 100 ml @ ud STK-MED 08/12/18 DC ONCE .ROUTE 17:48 08/12/18 17:49 Procedures/MDM EKG: Rate/Rhythm: Normal sinus rhythm right bundle branch block QRS, ST, QT: NORMAL NC, QRS, QT] Impression: Normal EKG Ordering MD: JANUSZ SWAN DO Location: E/R Room/Bed: PROCEDURE: CT Brain without contrast. CLINICAL INDICATION: Headache TECHNIQUE: A CT of the brain was performed on a multidetector CT scanner utilizing axial sections from the skull base through the vertex without contrast. Images were reviewed on a high-resolution PACS workstation. Exam CTDI = 39.2 mGy and the DLP = 634.23 mGy-cm. DICOM images are available. One or more of the following dose reduction techniques were used: Automated exposure control. Adjustment of the mA and/or kV according to patient size. Use of iterative reconstruction technique. COMPARISON: CT head 10/25/2014. FINDINGS: There is age appropriate mild generalized volume loss. There is no evidence of intracranial hemorrhage, mass effect or midline shift. No abnormal intra-axial or extra-axial fluid collections are seen. The density of the brain is normal and the bonds/white matter differentiation is well preserved. Mild patchy diffuse deep white matter microangiopathic ischemic change is seen. The osseous structures are intact. The paranasal sinuses are clear. Intracranial vascular calcifications are present. IMPRESSION: 1. No intracranial hemorrhage, mass effect or midline shift. 2. Mild chronic microangiopathic ischemic change. 3. Intracranial atherosclerosis. RPTAT: BB .Hussain Toney MD, MD Date Time Electronically viewed and signed by .Hussain Toney MD, on 08/12/2018 15:16 .O/ CC: JANUSZ SWAN DO [id number] Patient received Antivert, Dilaudid, Benadryl and Compazine for headache which is better. MR #: [id number] DOS: 08/12/18 1656 Ordering MD: JANUSZ SWAN DO Location: E/R Room/Bed: PROCEDURE: CT Angiography Chest With Intravenous Contrast CLINICAL INDICATION: Shortness of breath. TECHNIQUE: Axial computed tomographic angiography images of the chest with intravenous contrast using pulmonary embolism protocol. Sagittal and coronal reformatted images were created and reviewed. CTDIvol (mGy) = 16.86 total DLP (mGy-cm) = 597.63. This CT exam was performed using one or more of the following dose reduction techniques: automated exposure control, adjustment of the mA and/or kV according to patient size, and/or use of iterative reconstruction technique. DICOM images are available. MIP reconstructed images were created and reviewed. CONTRAST: 95 mL of Omnipaque 350 was administered intravenously. COMPARISON: None FINDINGS: PULMONARY ARTERIES: The pulmonary arteries are unremarkable. No pulmonary embolism. AORTA: The thoracic aorta is atherosclerotic. No aortic dissection. LUNGS: Mild subpleural interstitial fibrosis throughout both lungs. No consolidative pulmonary infiltrates. PLEURAL SPACE: Unremarkable. No significant effusion. No pneumothorax. HEART: Myocardial thickening of the left ventricle. Mild cardiomegaly. No significant pericardial effusion. No evidence of RV dysfunction. THYROID: 2.5 cm nodule left lobe of the thyroid gland. BONES/JOINTS: Degenerative spine changes are noted. No acute fracture. No dislocation. SOFT TISSUES: Unremarkable. LYMPH NODES: Unremarkable. No enlarged lymph nodes. IMPRESSION: 1. The pulmonary arteries are unremarkable. No pulmonary embolism. 2. The thoracic aorta is atherosclerotic. No aortic dissection. 3. Mild subpleural interstitial fibrosis throughout both lungs. No consolidative pulmonary infiltrates. 4. Mild cardiomegaly and mild myocardial thickening of the left ventricle. No evidence of RV dysfunction. 5. 2.5 cm nodule left lobe of the thyroid gland. No follow-up is necessary. RPTAT: [facility] Ross Squires, Physician Nut Blanker Operator Date Time Electronically viewed and signed by Ross Squires Physician Nut Blanker Operator on 08/12/2018 19:24 C/ CC: JANUSZ SWAN DO [id number] We will admit the patient for 2 episodes of near syncope. No evidence of PE on her scan. Departure Diagnosis: Primary Impression: Near syncope Additional Impression: Vertigo Condition: Stable JANUSZ SWAN DO August 12, 2018 17:28
[2018-08-12] MEDS ORDERED: IOHEXOL 100 ML ONE (17:48)
[2018-08-12] MEDS ORDERED: SOD CHLORIDE 0.9% 100 ML ONE (17:48)
[2018-08-12] MEDS ORDERED: SOD CHLORIDE 0.9% 1,000 ML IV SCH (19:39)
[2018-08-12] MEDS ORDERED: ONDANSETRON 4 MG INJ IV PRN (20:00)
[2018-08-12] MEDS ORDERED: ACETAMINOPHEN 325 MG TAB PO PRN (20:00)
[2018-08-12] MEDS ORDERED: DOCUSATE SODIUM 100 MG CAP PO PRN (20:00)
[2018-08-12] MEDS ORDERED: BISACODYL (EC) 5 MG TAB PO PRN (20:00)
[2018-08-12] MEDS ORDERED: ONDANSETRON 4 MG TAB PO PRN (20:00)
[2018-08-12] MEDS ORDERED: NACL 0.9% 3 ML SYG IV SCH (20:00)
--- NOTE | 2018-08-12 20:03 | HP ---
Date/Time of Note Date/Time of Note DATE: 08/12/18 TIME: 20:02 Assessment/Plan VTE Prophylaxis SCD applied (from Nsg): Yes Pharmacological prophylaxis: NA/contraindicated Pharm contraindication: low risk/ambulating Lines/Catheters IV Catheter Type (from Nrsg): Saline Lock Assessment/Plan Hospital Course This is a 77-year female being admitted to the telemetry floor for observation for: 1 near syncope: Neurocardiogenic was cardiogenic versus medication related. Up until this point her studies appear to be reassuring. Recent echocardiogram showed an ejection fraction of 55%. Patient had a left heart cath that did not show any significant stenosis. Of note patient does appear to have occasional bouts of bradycardia. This could be secondary to her beta-carlos. I will reduce the dosage of bblocker to 25 mg p.o. twice daily. I will increase her lisinopril to 20 mg p.o. daily. Will obtain a PT evaluation and a walking pulse ox on room air. We will also obtain a carotid ultrasound. 2 nonobstructive coronary disease: Recent heart catheterization with no significant stenosis. Will adjust patient's beta-carlos as per #1. Continue patient's Plavix and statin, aspirin 3 diastolic dysfunction: She had a recent echocardiogram with an ejection fraction of 55%. With grade 1 diastolic dysfunction. 4. Essential hypertension. Will decrease dosage of beta-blockers per 1, increase lisinopril. Further optimize patient's blood pressures that she did present with systolic of 175. 5. Hyperlipidemia: Continue statin 6. Anemia: Stable continue to monitor 7. Obesity: Encouraged diet weight loss 8 DVT GI prophylaxis: SCDs, no GI prophylaxis indicated Further treatment strategy will be implemented as per the clinical course Result Diagram: 08/12/18 1435 08/12/18 1435 Results 24hrs Laboratory Tests Test 08/12/18 14:35 08/12/18 14:50 White Blood Count 7.9 Red Blood Count 3.90 L Hemoglobin 11.0 L Hematocrit 33.5 L Mean Corpuscular Volume 85.9 Mean Corpuscular Hemoglobin 28.2 L Mean Corpuscular Hemoglobin Concent 32.8 Red Cell Distribution Width 14.8 H Platelet Count 268 Mean Platelet Volume 10.5 H Immature Granulocytes % 0.100 Neutrophils % 55.8 Lymphocytes % 30.8 Monocytes % 7.4 Eosinophils % 5.0 Basophils % 0.9 Nucleated Red Blood Cells % 0.0 Immature Granulocytes # 0.010 Neutrophils # 4.4 Lymphocytes # 2.4 Monocytes # 0.6 Eosinophils # 0.4 Basophils # 0.1 Nucleated Red Blood Cells # 0.0 Sodium Level 133 L Potassium Level 4.2 Chloride Level 101 Carbon Dioxide Level 22 Anion Gap 10 Blood Urea Nitrogen 12 Creatinine 0.56 Est Glomerular Filtrat Rate mL/min Glucose Level 101 Calcium Level 9.7 Total Bilirubin 0.3 Direct Bilirubin 0.00 Indirect Bilirubin 0.3 Aspartate Amino Transf (AST/SGOT) 31 Alanine Aminotransferase (ALT/SGPT) 23 Alkaline Phosphatase 113 Troponin I < 0.012 Total Protein 7.3 Albumin 4.0 Globulin 3.30 H Albumin/Globulin Ratio 1.21 Urine Color YELLOW Urine Clarity SLIGHTLY CLOUDY A Urine pH 7.0 Urine Specific [place] 1.004 Urine Ketones NEGATIVE Urine Nitrite NEGATIVE Urine Bilirubin NEGATIVE Urine Urobilinogen NEGATIVE Urine Leukocyte Esterase NEGATIVE Urine Microscopic RBC 1 Urine Microscopic WBC 0 Urine Hemoglobin NEGATIVE Urine Glucose NEGATIVE Urine Total Protein NEGATIVE HPI/ROS Admit Date/Time Admit Date/Time Hx of Present Illness Chief complaint: Shortness of breath followed by dizziness while standing in line 77-year-old female who presented to the emergency department with multiple complaints. Her main complaint though for coming to the emergency department was that when she was standing in line to bear a gas pill she started feeling short of breath and and felt like that she was going to pass out but she did n ot. This happened to her about twice. Patient also has been complaining of chronic neck pain and headache but this is been going on for a month. She recently was admitted to [facility] and did have a cardiac including a heart catheterization that did not show any significant stenosis. She did have her blood pressure medications optimized at that time. Of note on presentation patient's blood pressure was in the systolic of 175. Patient did have a CT of the chest done in the emergency department that was negative for PE. Recent echocardiogram shows an ejection fraction of approximately 55%. Patient reports that she did not have a sensation of the room spinning or object spinning, she just reports feeling more so lightheaded episode occurred. She did receive meclizine in the ED however she is unsure whether this helped. Currently she does not have any symptoms of dizziness or shortness of breath Allergies: Codeine Medications: See LUIS ENRIQUE RANDOLPH Const: As per HPI Eyes : No pain discharge or redness or change in visual acuity ENT: No pain, sore throat, congestion, congestion, dysphagia or discharge Respiratory: As per HPI Cardiovascular: No chest pain, palpitation, PND, or edema GI : no change in appetite, abdominal pain, nausea, vomiting, diarrhea, constipation, or change in the color his stool Genitourinary: No dysuria, hematuria, flank pain , discharge or CVA tenderness Musculoskeletal: No joint pain, back pain, neck pain, restricted range of motion in neck or joints Skin: No rash, bruising or hives Neuro: No headache, dizziness, syncope, seizure, focal weakness Endocrine: No polyuria, polydipsia, temperature intolerance Psych: No hallucination, depression, anxiety or suicidal ideation PMH/Family/Social Past Medical History 1. Nonobstructive coronary artery disease/NSTEMI -Status post [facility] 07/28/2018. 2. Diastolic dysfunction. 3. Essential hypertension. 4. Hyperlipidemia. 5. Anemia 6. Obesity Medications Current Medications Sodium Chloride 1,000 ml @ 80 mls/hr [id number] IV ; Start 08/12/18 at 19:39; Stop 08/13/18 at 08:08 Ondansetron HCl (Zofran Inj) 4 mg ER BRIDGE PRN IV NAUSEA/VOMITING; Start 08/12/18 at 20:00; Stop 08/13/18 at 19:59 Acetaminophen (Tylenol Tab) 650 mg ER BRIDGE PRN PO .MILD PAIN 1-3 OR TEMP; Start 08/12/18 at 20:00; Stop 08/13/18 at 19:59 Coded Allergies: codeine (Verified Allergy, Mild, 08/12/18) SOB, N/V Past Surgical History Diagnostic left heart catheterization July 2018 Family History Significant Family History: no pertinent family hx Social History Alcohol Use: none Smoking Status: Never smoker Drug Use: none Exam/Review of Systems Vital Signs Vitals Vital Signs Date Temp Pulse Resp B/P (MAP) Pulse Ox O2 O2 Flow FiO2 Time Delivery Rate 08/12/18 69 14 162/67 99 Room Air 18:37 (98) 08/12/18 2.0 14:15 08/12/18 97.8 12:33 Exam Exam General: Patient is a pleasant female currently lying in bed in no acute distress. HEENT: Atraumatic, normocephalic. The pupils are equal, round and reactive. Extraocular motor are intact Neck: Supple with full range of motion. Tenderness to palpation along the bilateral trapezius muscles of the neck Chest: Nontender Lungs: Clear to auscultation bilaterally no crackles rales or wheezing Heart: Normal S1-S2, Regular rhythm and rate. No murmur, S3, or S4 Abdomen: Soft , nontender, nondistended , bowel sounds are present. No guarding no rebound tenderness , No masses or organomegaly. No costovertebral temporal angle mass Extremities: Normal to inspection, no edema no cyanosis Neurologic: Normal mental status, speech normal, cranial nerves II through XII are intact, motor and sensory are intact, gait not assessed Additional Comments PROCEDURE: CT Angiography Chest With Intravenous Contrast CLINICAL INDICATION: Shortness of breath. TECHNIQUE: Axial computed tomographic angiography images of the chest with intravenous contrast using pulmonary embolism protocol. Sagittal and coronal reformatted i mages were created and reviewed. CTDIvol (mGy) = 16.86 total DLP (mGy-cm) = 597.63. This CT exam was performed using one or more of the following dose reduction techniques: automated exposure control, adjustment of the mA and/or kV according to patient size, and/or use of iterative reconstruction technique. DICOM images are available. MIP reconstructed images were created and reviewed. CONTRAST: 95 mL of Omnipaque 350 was administered intravenously. COMPARISON: None FINDINGS: PULMONARY ARTERIES: The pulmonary arteries are unremarkable. No pulmonary embolism. AORTA: The thoracic aorta is atherosclerotic. No aortic dissection. LUNGS: Mild subpleural interstitial fibrosis throughout both lungs. No consolidative pulmonary infiltrates. PLEURAL SPACE: Unremarkable. No significant effusion. No pneumothorax. HEART: Myocardial thickening of the left ventricle. Mild cardiomegaly. No significant pericardial effusion. No evidence of RV dysfunction. THYROID: 2.5 cm nodule left lobe of the thyroid gland. BONES/JOINTS: Degenerative spine changes are noted. No acute fracture. No dislocation. SOFT TISSUES: Unremarkable. LYMPH NODES: Unremarkable. No enlarged lymph nodes. IMPRESSION: 1. The pulmonary arteries are unremarkable. No pulmonary embolism. 2. The thoracic aorta is atherosclerotic. No aortic dissection. 3. Mild subpleural interstitial fibrosis throughout both lungs. No consolidative pulmonary infiltrates. 4. Mild cardiomegaly and mild myocardial thickening of the left ventricle. No evidence of RV dysfunction. 5. 2.5 cm nodule left lobe of the thyroid gland. No follow-up is necessary. RPTAT: [facility] Ross Squires Physician Auto Battery Builder Date Time Electronically viewed and signed by Ross Squires, Physician Auto Battery Builder on 08/12/2018 19:24 RmC/ CC: JANUSZ SWAN DO [id number] PROCEDURE: CT Brain without contrast. CLINICAL INDICATION: Headache TECHNIQUE: A CT of the brain was performed on a multidetector CT scanner utilizing axial sections from the skull base through the vertex without contrast. Images were reviewed on a high-resolution PACS workstation. Exam CTDI = 39.2 mGy and the DLP = 634.23 mGy-cm. DICOM images are available. One or more of the following dose reduction techniques were used: Automated exposure control. Adjustment of the mA and/or kV according to patient size. Use of iterative reconstruction technique. COMPARISON: CT head 10/25/2014. FINDINGS: There is age appropriate mild generalized volume loss. There is no evidence of intracranial hemorrhage, mass effect or midline shift. No abnormal intra-axial or extra-axial fluid collections are seen. The density of the brain is normal and the bonds/white matter differentiation is well preserved. Mild patchy diffuse deep white matter microangiopathic ischemic change is seen. The osseous structures are intact. The paranasal sinuses are clear. Intracranial vascular calcifications are present. IMPRESSION: 1. No intracranial hemorrhage, mass effect or midline shift. 2. Mild chronic microangiopathic ischemic change. 3. Intracranial atherosclerosis. RPTAT: BB .Hussain Toney MD, Date Time Electronically viewed and signed by .Hussain Toney MD, MD on 08/12/2018 15:16 .O/ CC: JANUSZ SWAN DO [id number] EKG: Rate/Rhythm: Normal sinus rhythm right bundle branch block QRS, ST, QT: NORMAL NC, QRS, QT] Impression: Normal EKGConclusions: Normal left ventricular systolic function. Normal left ventricular cavity size. Mild concentric left ventricular hypertrophy. Ejection fraction is visually estimated at 55 %. Tissue Doppler/Mitral Doppler indices are consistent with impaired relaxation (Stage I diastolic dysfunction). Normal right ventricular size. Normal right ventricular systolic function. Mild mitral annular calcification. Mild mitral valve regurgitation. Aortic cusps appear mildly calcified. Trace aortic valve regurgitation. n. Normal appearance of the tricuspid valve. Estimated peak PA systolic pressure 33 mmHg. There is mild tricuspid regurgitation. Normal pericardium with no significant pericardial effusion. Left pleural effusion seen. Electronically Signed By: Werner Galindo 2018-07-26 15:39:15 EUN SUAZO August 12, 2018 20:03
[2018-08-12] MEDS ORDERED: LISINOPRIL 10 MG TAB PO SCH (20:30)
[2018-08-12] MEDS ORDERED: METOPROLOL 50 MG TAB PO SCH (21:00)
[2018-08-12] MEDS ORDERED: ATORVASTATIN 20 MG TAB PO SCH (21:00)
[2018-08-12 21:55] VITALS: Ht 154.9 cm; Wt 76.7 kg
[2018-08-12 21:57] VITALS: PULSE 69
[2018-08-12 22:09] VITALS: BP 175/72; PULSE 69; RESP 20
[2018-08-12] MEDS: ATORVASTATIN 20 MG TAB PO SCH (22:25)
[2018-08-13] VITALS (13 sets, daily range): BP systolic 121–165; BP diastolic 56–78; PULSE 54–73; RESP 17–22
[2018-08-13] MEDS ORDERED: KETOROLAC 15 MG INJ IV STA (06:21)
[2018-08-13] MEDS: ISOSORBIDE MONONITRATE(SR)30 MG TAB PO SCH (09:01)
[2018-08-13] MEDS: MAGNESIUM OXIDE 400 MG TAB PO SCH (09:01)
[2018-08-13] MEDS: ASPIRIN 81 MG TAB PO SCH (09:01)
[2018-08-13] MEDS: CLOPIDOGREL 75 MG TAB PO SCH (09:01)
[2018-08-13] MEDS: METOPROLOL 25 MG TAB PO SCH ×2 (09:02→20:11)
[2018-08-13] MEDS: LISINOPRIL 20 MG TAB PO SCH (09:02)
--- NOTE | 2018-08-13 12:01 | PDOCDIS ---
Discharge Instructions CONDITION [id number] Patient Condition: [id number] Stable HOME CARE INSTRUCTIONS: [id number] Diet Instructions: [id number] Low Fat /Cholesterol FOLLOW UP/APPOINTMENTS Follow-up Plan Follow-up with primary care physician in 1 week. ALISE AGUILAR NP August 13, 2018 12:01
[2018-08-13] MEDS ORDERED: METO-448 PO (12:05)
--- NOTE | 2018-08-13 12:13 | DS ---
Date/Time of Note Date/Time of Note DATE: 08/13/18 TIME: 12:11 Discharge Summary Admission/Discharge Info Admit Date/Time August 12, 2018 at 19:39 Discharge Date/Time Discharge Diagnosis Presyncope, likely vasovagal. hypertension anemia hepatic steatosis nonobstructive coronary artery disease/very recent NSTEMI,Status post [facility] 07/28/2018, Hyperlipidemia diastolic dysfunction Patient Condition: Stable Hospital Course 37-year-old female with a history of hypertension, anemia, hepatic steatosis,nonobstructive coronary artery disease/very recent NSTEMI,Status post [facility] 07/28/2018,biliary pancreatitis,Hyperlipidemia, diastolic dysfunction admitted with presyncopal episode while she was standing in a line. Patient blood pressure was high on arrival and she was also extremely anxious. Patient was ruled out for acute cardiogenic versus neurogenic causes of her symptoms. She was noted w/mild bradycardia for which betablockers titrated down. She likely had a vasovagal episode along with standing in line for a while. Patient did not have any further episodes of dizziness and has. Her blood pressure remained stable after resuming on home medications. Patient was instructed on avoiding unnecessary NSAIDs and opiates at home which he ve rbalized understanding. Blood pressure titrated appropriately secondary to mild bradycardia with metoprolol. At this time, patient does not need any further inpatient work-up and can be followed up with her primary care physician. She is hemodynamically stable. Approximately 60 m spent on coordinating the discharge on this patient. Patient was seen in collaboration with Dr. Nguyen. Home Meds Active Scripts Metoprolol Tartrate* (Lopressor*) 25 Mg Tab, 25 MG PO BID, #60 TAB Prov:ALISE AGUILAR V. [employer] 08/13/18 Aspirin (Aspirin) 81 Mg Chew, 81 MG PO DAILY, #30 TAB Prov:AGUILARSENGA V. [employer] 07/31/18 Isosorbide Mononitrate* (Isosorbide Mononitrate*) 30 Mg Tab.er.24h, 30 MG PO DAILY, #30 TAB Prov:AGUILARSENGA V. [employer] 07/31/18 Clopidogrel Bisulfate (Clopidogrel) 75 Mg Tablet, 75 MG PO DAILY, #30 TAB Prov:ALISE AGUILAR V. [employer] 07/31/18 Reported Medications Lisinopril* (Lisinopril*) 10 Mg Tablet, 10 MG PO DAILY, #30 TAB 08/12/18 Simvastatin* (Zocor*) 40 Mg Tablet, 40 MG PO QHS, #30 TAB 08/12/18 Magnesium Oxide* (Mag-Oxide*) 400 Mg Tablet, 400 MG PO QWED AND FRIDAY, TAB 07/23/18 Discontinued Reported Medications Naproxen* (Naproxen*) 500 Mg Tablet, 500 MG PO BID, TAB 08/12/18 Tramadol Hcl* (Ultram*) 50 Mg Tablet, 50 MG PO Q6H PRN for PAIN, TAB 08/12/18 Ondansetron Hcl* (Zofran*) 4 Mg Tab, 4 MG PO Q6H PRN for NAUSEA AND OR VOMITING, TAB 08/12/18 Sennosides* (Senna Lax*) 8.6 Mg Tablet, 1 TAB PO BID, TAB 07/23/18 Simvastatin (Simvastatin) 40 Mg Tablet, 40 MG PO HS, TAB 10/25/14 Discontinued Scripts Metoprolol Tartrate* (Lopressor*) 50 Mg Tab, 50 MG PO BID, #60 TAB Prov:ALISE AGUILAR V. [employer] 07/31/18 Lisinopril* (Lisinopril*) 20 Mg Tablet, 40 MG PO DAILY, #30 TAB Prov:ALISE AGUILAR V. [employer] 07/31/18 Follow-up Plan Follow-up with primary care physician in 1 week. Primary Care Provider Christiano Hyatt Pending Labs Laboratory Tests Test 08/12/18 14:35 08/12/18 14:50 08/13/18 05:19 White Blood Count 7.9 5.5 10^3/ul (4.8-10.8) 10^3/ul (4.8-10.8) Red Blood Count 3.90 3.78 10^6/ul (4.20-5.40) 10^6/ul (4.20-5.40 ) Hemoglobin 11.0 10.7 g/dl (12.0-16.0) g/dl (12.0-16.0) Hematocrit 33.5 % (37.0-47.0) 32.8 % (37.0-47.0) Mean Corpuscular 85.9 86.8 Volume fl (82.0-101.0) fl (82.0-101.0) Mean Corpuscular 28.2 pg (29.0-33.0) 28.3 Hemoglobin pg (29.0-33.0) Mean Corpuscular 32.8 32.6 Hemoglobin Concent g/dl (32.0-37.0) g/dl (32.0-37.0) Red Cell 14.8 % (11.5-14.5) 15.3 % (11.5-14.5) Distribution Width Platelet Count 268 279 10^3/UL (140-415) 10^3/UL (140-415) Mean Platelet 10.5 fl (7.4-10.4) 10.9 fl (7.4-10.4) Volume Immature 0.100 0.200 Granulocytes % % (0.001-0.429) % (0.001-0.429) Neutrophils % 55.8 % (39.0-77.0) 45.3 % (39.0-77.0) Lymphocytes % 30.8 % (15.0-51.0) 33.4 % (15.0-51.0) Monocytes % 7.4 % (0.0-11.0) 11.6 % (0.0-11.0) Eosinophils % 5.0 % (0.0-7.0) 8.4 % (0.0-7.0) Basophils % 0.9 % (0.0-2.0) 1.1 % (0.0-2.0) Nucleated Red Blood 0.0 0.0 Cells % /100WBC (0.0-0.0) /100WBC (0.0-0.0) Immature 0.010 0.010 Granulocytes # 10^3/ul (0.0-0.031) 10^3/ul (0.0-0.031 ) Neutrophils # 4.4 2.5 10^3/ul (1.6-7.5) 10^3/ul (1.6-7.5) Lymphocytes # 2.4 1.8 10^3/ul (0.8-2.9) 10^3/ul (0.8-2.9) Monocytes # 0.6 0.6 10^3/ul (0.3-0.9) 10^3/ul (0.3-0.9) Eosinophils # 0.4 0.5 10^3/ul (0.0-0.5) 10^3/ul (0.0-0.5) Basophils # 0.1 0.1 10^3/ul (0.0-0.1) 10^3/ul (0.0-0.1) Nucleated Red Blood 0.0 0.0 Cells # 10^3/ul (0.0-0.0) 10^3/ul (0.0-0.0) Sodium Level 133 140 mmol/L (135-144) mmol/L (135-144) Potassium Level 4.2 4.6 mmol/L (3.5-5.1) mmol/L (3.5-5.1) Chloride Level 101 mmol/L (97-110) 108 mmol/L (97-110) Carbon Dioxide 22 mmol/L (21-31) 25 mmol/L (21-31) Level Anion Gap 10 (5-13) 7 (5-13) Blood Urea 12 mg/dl (7-20) 14 mg/dl (7-20) Nitrogen Creatinine 0.56 0.67 mg/dl (0.44-1.00) mg/dl (0.44-1.00) Est Glomerular mL/min (>60) mL/min (>60) Filtrat Rate mL/min Glucose Level 101 mg/dl (70-220) 97 mg/dl (70-220) Calcium Level 9.7 9.1 mg/dl (8.4-10.2) mg/dl (8.4-10.2) Total Bilirubin 0.3 mg/dl (0.2-1.3) 0.2 mg/dl (0.2-1.3) Direct Bilirubin 0.00 0.00 mg/dl (0.00-0.20) mg/dl (0.00-0.20) Indirect Bilirubin 0.3 mg/dl (0-1.1) 0.2 mg/dl (0-1.1) Aspartate Amino 31 IU/L (15-46) 26 IU/L (15-46) Transf (AST/SGOT) Alanine 23 IU/L (13-69) 20 IU/L (13-69) Aminotransferase (A LT/SGPT) Alkaline 113 IU/L (42-121) 99 IU/L (42-121) Phosphatase Troponin I < 0.012 ng/ml (0.000-0.120) Total Protein 7.3 g/dl (6.1-8.1) 6.5 g/dl (6.1-8.1) Albumin 4.0 g/dl (3.3-4.9) 3.7 g/dl (3.3-4.9) Globulin 3.30 g/dl (1.3-3.2) 2.80 g/dl (1.3-3.2) Albumin/Globulin 1.21 1.32 Ratio Urine Color YELLOW (YELLOW) Urine Clarity SLIGHTLY CLOUDY (CLEAR) Urine pH 7.0 (5.0-9.0) Urine Specific 1.004 (1.003-1.030 [place] ) Urine Ketones NEGATIVE mg/dL (NEGATIVE) Urine Nitrite NEGATIVE mg/dL (NEGATIVE) Urine Bilirubin NEGATIVE mg/dL (NEGATIVE) Urine Urobilinogen NEGATIVE mg/dL (NEGATIVE) Urine Leukocyte NEGATIVE Lu/ul Esterase Urine Microscopic 1 /HPF (0-5) RBC Urine Microscopic 0 /HPF (0-5) WBC Urine Hemoglobin NEGATIVE mg/dL (NEGATIVE) Urine Glucose NEGATIVE mg/dL (NEGATIVE) Urine Total NEGATIVE Protein mg/dl (NEGATIVE) Magnesium Level 2.1 mg/dl (1.7-2.5) Thyroid Stimulating 2.660 Hormone (TSH) MIU/L (0.465-4.680 ) ALISE AGUILAR NP August 13, 2018 12:13
[2018-08-13] MEDS ORDERED: morphine 2 MG INJ IV STA (15:42)
[2018-08-13] MEDS ORDERED: IOHEXOL 14.3 MG(I)/ML (ADULT) BTL PO ONE (16:00)
[2018-08-13] MEDS ORDERED: BARIUM SULF 2% 450 ML BTL (BERRY SMOOTHIE) PO ONE (16:00)
[2018-08-13] MEDS ORDERED: PANTOPRAZOLE 40 MG INJ IV ONE (16:00)
[2018-08-13] MEDS ORDERED: IOHEXOL 10 MG(I)/ML (PED) BTL PO ONE (16:00)
[2018-08-13] MEDS: ATORVASTATIN 20 MG TAB PO SCH (20:10)
[2018-08-13] MEDS: PANTOPRAZOLE 40 MG INJ IV SCH (20:10)
[2018-08-13] MEDS: ACETAMINOPHEN 325 MG TAB PO PRN (20:11)
[2018-08-14] VITALS (14 sets, daily range): BP systolic 122–188; BP diastolic 59–81; PULSE 55–76; RESP 17–20
[2018-08-14] MEDS: PANTOPRAZOLE 40 MG INJ IV SCH ×2 (05:07→18:00)
[2018-08-14] MEDS: ASPIRIN 81 MG TAB PO SCH (08:47)
[2018-08-14] MEDS: ISOSORBIDE MONONITRATE(SR)30 MG TAB PO SCH (08:48)
[2018-08-14] MEDS: LISINOPRIL 20 MG TAB PO SCH (08:48)
[2018-08-14] MEDS: CLOPIDOGREL 75 MG TAB PO SCH (08:48)
[2018-08-14] MEDS: METOPROLOL 25 MG TAB PO SCH ×2 (08:49→21:28)
[2018-08-14] MEDS: MAGNESIUM OXIDE 400 MG TAB PO SCH (08:49)
--- NOTE | 2018-08-14 12:46 | QN ---
Documentation Comment Discharge was canceled on 08/13/2018 as patient complained of left-sided abdominal discomfort and was not feeling comfortable going home. This further lead to CT evaluation. ALISE AGUILAR NP August 14, 2018 12:46
--- NOTE | 2018-08-14 12:53 | PN ---
Date/Time of Note Date/Time of Note DATE: 08/14/18 TIME: 12:52 Assessment/Plan VTE Prophylaxis Risk score (from Nsg)>0 risk: 4 SCD applied (from Nsg): Yes Pharmacological prophylaxis: NA/contraindicated Pharm contraindication: low risk/ambulating Lines/Catheters IV Catheter Type (from Nrsg): Peripheral IV Assessment/Plan Hospital Course SUBJECTIVE: Lying in bed, having left-sided lower abdominal pain. OBJECTIVE: Vital signs-see below PHYSICAL EXAM: Constitutional: Adequately built,elederly female,not in acute distress. HEENT: Head atraumatic and normocephalic. Eyes: Extraocular muscles intact. Anicteric sclerae. Pupils equal bilaterally, reactive to light. NECK: Supple without lymph node. CHEST: Clear and good breath sounds equally. No wheezing. No rhonchi. HEART: S1, S2. Regular rate and rhythm. ABDOMEN: Tenderness to left pelvic area. no rebound tenderness. Bowel sounds were present. EXTREMITIES: No cyanosis, clubbing or edema. NEUROLOGIC: Alert and oriented x3. No focal deficit. No sensory deficit. PSYCHOSOCIAL: No signs of depression. INTEGUMENTARY: No open wounds. ASSESSMENT AND PLAN: 77-year-old obese female with DD,htn,hyperlipidemia,anemia,CAD, admitted for presyncope, also noted w/mild bradycardia. Presyncope, likely vasovagal -No further symptoms. ACS/neurovascular events ruled out. -PT follow-up Left pelvic pain: CT/US w/ Large left adnexal cyst/mass, concerning for neoplasm -no ct/us evidence of torsion.. 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 Nonobstructive coronary artery disease. -on DAPT, statin,BB Essential hypertension -Stable -bb as HR tolerated /acei Hyperlipidemia -Statin Chronic anemia -Stable H&H. Monitor Diastolic dysfunction -cont.bb -Euvolemic Obesity with BMI 31.9 -Lifestyle changes/weight reduction advised DVT prophylaxis: SCDs/ambulation PUD prophylaxis: Pepcid Disposition: Keep patient in-house for further work-up of CT/ultrasound finding of large adnexal cyst, follow-up oncology/INFANTRY UNIT LEADER recommendations regarding calling inpt INFANTRY UNIT LEADER oncologist vs outpt f/u. Patient was seen in collaboration with Dr. Nguyen. Result Diagram: 08/13/1851808/13/18518 Exam/Review of Systems Exam Vitals Vital Signs Date Temp Pulse Resp B/P (MAP) Pulse Ox O2 O2 Flow FiO2 Time Delivery Rate 08/14/18 58 12:00 08/14/18 98.0 18 165/77 97 Room Air 11:51 (106) 08/12/18 2.0 14:15 Intake and Output 08/13/18 08/13/18 08/14/18 1515:00 23:00 07:00 IntakeIntake Total 900 ml 200 ml BalanceBalance 900 ml 200 ml Medications Medication Current Medications IV Flush (NS 3 ml) 3 ml PER PROTOCOL IV ; Start 08/12/18 at 20:00 Ondansetron HCl (Zofran Tab) 4 mg Q4H PRN PO NAUSEA/VOMITING; Start 08/12/18 at 20:00 Acetaminophen (Tylenol Tab) 650 mg Q6H PRN PO .PAIN 1-3 OR TEMP Last administered on 08/13/18 20:11; Admin Dose 650 MG; Start 08/12/18 at 20:00 Docusate Sodium (Colace) 100 mg Q12H PRN PO .CONSTIPATION; Start 08/12/18 at 20:00 Bisacodyl (Dulcolax) 5 mg DAILY PRN PO .CONSTIPATION Last administered on 9at 08:47; Admin Dose 5 MG; Start 08/12/18 at 20:00 Aspirin (Aspirin) 81 mg DAILY PO Last administered on 08/14/18 08:47; Admin Dose 81 MG; Start 08/13/18 at 09:00 Clopidogrel Bisulfate (plaVIX) 75 mg DAILY PO Last administered on 08/14/18 08:48; Admin Dose 75 MG; Start 08/13/18 at 09:00 Isosorbide Mononitrate (Imdur) 30 mg DAILY PO Last administered on 08/14/18 08:48; Admin Dose 30 MG; Start 08/13/18 at 09:00 Magnesium Oxide (Mag-Ox 400) 400 mg DAILY PO Last administered on 08/14/18 08:49; Admin Dose 400 MG; Start 08/13/18 at 09:00 Atorvastatin Calcium (Lipitor) 20 mg QHS PO Last administered on 5/2/19at 20:10; Admin Dose 20 MG; Start 08/12/18 at 21:00 Metoprolol Tartrate (Lopressor) 25 mg BID PO Last administered on 08/14/18 08:49; Admin Dose 25 MG; Start 08/13/18 at 09:00 Lisinopril (Zestril) 20 mg DAILY PO Last administered on 08/14/18 08:48; Admin Dose 20 MG; Start 08/13/18 at 09:00 Simethicone (Mylicon) 160 mg Q6H PRN PO DISTENSION/GAS/BLOATING Last administered on 08/13/18 18:20; Admin Dose 160 MG; Start 08/13/18 at 16:00 Pantoprazole (Protonix Iv) 40 mg BID@06,18 IV Last administered on 08/14/18 05:07; Admin Dose 40 MG; Start 08/13/18 at 21:00 Ibuprofen (Motrin) 600 mg Q6H PRN PO neck pain; Start 08/14/18 at 09:00 ALISE AGUILAR NP August 14, 2018 12:53
--- NOTE | 2018-08-14 13:33 | CONS ---
Assessment/Plan Assessment/Plan Hospital Course (Demo Recall) #Left Cystic Adnexal mass -this needs to be evaluated by BUSINESS EXECUTIVE ONC surgically -if it is malignant, depending on the pathology and stage we would decide on adjuvant chemotherapy at that time #Syncopal episode -2/2 vasovagal event -pt currently is asymptomatic #CAD -s/p [facility] 07/28/18 -continue meds per cardiology Consultation Date/Type/Reason Admit Date/Time 08/13/18 Date of Consultation: August 14, 2018 Type of Consult oncology Reason for Consultation ovarian mass Requesting Provider: ALISE AGUILAR NP Date/Time of Note DATE: 08/14/18 TIME: 13:27 Hx of Present Illness Ms Chand is a pleasant 77 yo female with multiple medical problems including history of HTN, anemia hepatic steatosis, CAD s/p [facility] 07/28/18 who was admitted with 08/12/18 with near syncope. It was determined that patient likely had a vasovagal event and she was also noted to have mild bradycardia. On 08/13/18 pt was supposed to have been discharged but was noted to have lower pelvic pain. 08/13/18 CT A/P was done which revealed a 9.1 cm left cystic adnexa, which may represent a large ovarian cyst. 08/13/18 a follow up pelvic ultrasound was done which revealed a 8.6 x 6.1 x 7.7 cm cystic mass in the left adnexa. We have been consulted for further workup of this ovarian mass. Constitutional: no complaints Eyes: no complaints ENT: no complaints Respiratory: no complaints Cardiovascular: no complaints Gastrointestinal: no complaints Genitourinary: no complaints, other (pelvic pain) Musculoskeletal: no complaints, bone/joint pain Neurologic: no complaints Past Medical History hypertension anemia hepatic steatosis nonobstructive coronary artery disease/very recent NSTEMI Status post [facility] 07/28/2018 biliary pancreatitis Hyperlipidemia diastolic dysfunction Home Meds Active Scripts Metoprolol Tartrate* (Lopressor*) 25 Mg Tab, 25 MG PO BID, #60 TAB Prov:ALISE AGUILAR NP 08/13/18 Aspirin (Aspirin) 81 Mg Chew, 81 MG PO DAILY, #30 TAB Prov:ALISE AGUILAR NP 07/31/18 Isosorbide Mononitrate* (Isosorbide Mononitrate*) 30 Mg Tab.er.24h, 30 MG PO DAILY, #30 TAB Prov:ALISE AGUILAR V. [employer] 07/31/18 Clopidogrel Bisulfate (Clopidogrel) 75 Mg Tablet, 75 MG PO DAILY, #30 TAB Prov:ALISE AGUILAR V. [employer] 07/31/18 Reported Medications Lisinopril* (Lisinopril*) 10 Mg Tablet, 10 MG PO DAILY, #30 TAB 08/12/18 Simvastatin* (Zocor*) 40 Mg Tablet, 40 MG PO QHS, #30 TAB 08/12/18 Magnesium Oxide* (Mag-Oxide*) 400 Mg Tablet, 400 MG PO QWED AND FRIDAY, TAB 07/23/18 Discontinued Reported Medications Naproxen* (Naproxen*) 500 Mg Tablet, 500 MG PO BID, TAB 08/12/18 Tramadol Hcl* (Ultram*) 50 Mg Tablet, 50 MG PO Q6H PRN for PAIN, TAB 08/12/18 Ondansetron Hcl* (Zofran*) 4 Mg Tab, 4 MG PO Q6H PRN for NAUSEA AND OR VOMITING, TAB 08/12/18 Sennosides* (Senna Lax*) 8.6 Mg Tablet, 1 TAB PO BID, TAB 07/23/18 Simvastatin (Simvastatin) 40 Mg Tablet, 40 MG PO HS, TAB 10/25/14 Discontinued Scripts Metoprolol Tartrate* (Lopressor*) 50 Mg Tab, 50 MG PO BID, #60 TAB Prov:ALISE AGUILAR V. [employer] 07/31/18 Lisinopril* (Lisinopril*) 20 Mg Tablet, 40 MG PO DAILY, #30 TAB Prov:ALISE AGUILAR V. [employer] 07/31/18 Medications Current Medications IV Flush (NS 3 ml) 3 ml PER PROTOCOL IV ; Start 08/12/18 at 20:00 Ondansetron HCl (Zofran Tab) 4 mg Q4H PRN PO NAUSEA/VOMITING; Start 08/12/18 at 20:00 Acetaminophen (Tylenol Tab) 650 mg Q6H PRN PO .PAIN 1-3 OR TEMP Last administered on 08/13/18at 20:11; Admin Dose 650 MG; Start 08/12/18 at 20:00 Docusate Sodium (Colace) 100 mg Q12H PRN PO .CONSTIPATION; Start 08/12/18 at 20:00 Bisacodyl (Dulcolax) 5 mg DAILY PRN PO .CONSTIPATION Last administered on 08/14/18 08:47; Admin Dose 5 MG; Start 08/12/18 at 20:00 Aspirin (Aspirin) 81 mg DAILY PO Last administered on 08/14/18 08:47; Admin Dose 81 MG; Start 08/13/18 at 09:00 Clopidogrel Bisulfate (plaVIX) 75 mg DAILY PO Last administered on 08/14/18 08:48; Admin Dose 75 MG; Start 08/13/18 at 09:00 Isosorbide Mononitrate (Imdur) 30 mg DAILY PO Last administered on 08/14/18 08:48; Admin Dose 30 MG; Start 08/13/18 at 09:00 Magnesium Oxide (Mag-Ox 400) 400 mg DAILY PO Last administered on 08/14/18 08:49; Admin Dose 400 MG; Start 08/13/18 at 09:00 Atorvastatin Calcium (Lipitor) 20 mg QHS PO Last administered on 08/13/18 20:10; Admin Dose 20 MG; Start 08/12/18 at 21:00 Metoprolol Tartrate (Lopressor) 25 mg BID PO Last administered on 08/14/18 08:49; Admin Dose 25 MG; Start 08/13/18 at 09:00 Lisinopril (Zestril) 20 mg DAILY PO Last administered on 08/14/18 08:48; Admin Dose 20 MG; Start 08/13/18 at 09:00 Simethicone (Mylicon) 160 mg Q6H PRN PO DISTENSION/GAS/BLOATING Last administered on 08/13/18 18:20; Admin Dose 160 MG; Start 08/13/18 at 16:00 Pantoprazole (Protonix Iv) 40 mg BID@,18 IV Last administered on 08/14/18 05:07; Admin Dose 40 MG; Start 08/13/18 at 21:00 Ibuprofen (Motrin) 600 mg Q6H PRN PO neck pain; Start 08/14/18 at 09:00 Allergies: Coded Allergies: codeine (Verified Allergy, Mild, 08/12/18) SOB, N/V Past Surgical History Past Surgical Hx: no surgical history Family History Significant Family History: no pertinent family hx Social History Alcohol Use: none Smoking Status: Unknown if ever smoked Drug Use: none Exam/Review of Systems Exam Vitals Vital Signs Date Temp Pulse Resp B/P (MAP) Pulse Ox O2 O2 Flow FiO2 Time Delivery Rate 08/14/18 58 12:00 08/14/18 98.0 18 165/77 97 Room Air 11:51 (106) 08/12/18 2.0 14:15 Intake and Output 08/13/18 08/13/18 08/14/18 1515:00 23:00 07:00 IntakeIntake Total 900 ml 200 ml BalanceBalance 900 ml 200 ml Constitutional: alert, oriented Psych: no complaints Head: normocephalic Eyes: nl conjunctiva ENMT: nl external ears & nose Neck: supple Respiratory: clear to auscultation Cardiovascular: regular rate and rhythm Gastrointestinal: soft Musculoskeletal: nl extremities to inspection Results Result Diagram: 08/13/1851808/13/18518 Medications Medication Current Medications IV Flush (NS 3 ml) 3 ml PER PROTOCOL IV ; Start 08/12/18 at 20:00 Ondansetron HCl (Zofran Tab) 4 mg Q4H PRN PO NAUSEA/VOMITING; Start 08/12/18 at 20:00 Acetaminophen (Tylenol Tab) 650 mg Q6H PRN PO .PAIN 1-3 OR TEMP Last administer ed on 08/13/18at 20:11; Admin Dose 650 MG; Start 08/12/18 at 20:00 Docusate Sodium (Colace) 100 mg Q12H PRN PO .CONSTIPATION; Start 08/12/18 at 20:00 Bisacodyl (Dulcolax) 5 mg DAILY PRN PO .CONSTIPATION Last administered on 08/14/18at 08:47; Admin Dose 5 MG; Start 08/12/18 at 20:00 Aspirin (Aspirin) 81 mg DAILY PO Last administered on 08/14/18 08:47; Admin Dose 81 MG; Start 08/13/18 at 09:00 Clopidogrel Bisulfate (plaVIX) 75 mg DAILY PO Last administered on 08/14/18 08:48; Admin Dose 75 MG; Start 08/13/18 at 09:00 Isosorbide Mononitrate (Imdur) 30 mg DAILY PO Last administered on 08/14/18 08:48; Admin Dose 30 MG; Start 08/13/18 at 09:00 Magnesium Oxide (Mag-Ox 400) 400 mg DAILY PO Last administered on 08/14/18 08:49; Admin Dose 400 MG; Start 08/13/18 at 09:00 Atorvastatin Calcium (Lipitor) 20 mg QHS PO Last administered on 08/13/18 20:10; Admin Dose 20 MG; Start 08/12/18 at 21:00 Metoprolol Tartrate (Lopressor) 25 mg BID PO Last administered on 08/14/18 08:49; Admin Dose 25 MG; Start 08/13/18 at 09:00 Lisinopril (Zestril) 20 mg DAILY PO Last administered on 08/14/18 08:48; Admin Dose 20 MG; Start 08/13/18 at 09:00 Simethicone (Mylicon) 160 mg Q6H PRN PO DISTENSION/GAS/BLOATING Last adm inistered on 08/13/18at 18:20; Admin Dose 160 MG; Start 08/13/18 at 16:00 Pantoprazole (Protonix Iv) 40 mg BID@06,18 IV Last administered on 08/14/18 05:07; Admin Dose 40 MG; Start 08/13/18 at 21:00 Ibuprofen (Motrin) 600 mg Q6H PRN PO neck pain; Start 08/14/18 at 09:00 LUCY ROGER M.D. August 14, 2018 13:33
[2018-08-14] MEDS: ACETAMINOPHEN 325 MG TAB PO PRN (15:50)
[2018-08-14] MEDS: ATORVASTATIN 20 MG TAB PO SCH (21:28)
[2018-08-15] VITALS (9 sets, daily range): BP systolic 137–160; BP diastolic 64–79; PULSE 58–80; RESP 18–20
[2018-08-15] MEDS ORDERED: hydrALAzine 20 MG INJ IV ONE (00:30)
[2018-08-15] MEDS: PANTOPRAZOLE 40 MG INJ IV SCH ×2 (05:43→17:27)
[2018-08-15] MEDS: LISINOPRIL 20 MG TAB PO SCH ×2 (08:33→20:34)
[2018-08-15] MEDS: MAGNESIUM OXIDE 400 MG TAB PO SCH (08:33)
[2018-08-15] MEDS: METOPROLOL 25 MG TAB PO SCH ×2 (08:34→20:34)
[2018-08-15] MEDS: ASPIRIN 81 MG TAB PO SCH (08:34)
[2018-08-15] MEDS: CLOPIDOGREL 75 MG TAB PO SCH (08:34)
[2018-08-15] MEDS: ISOSORBIDE MONONITRATE(SR)30 MG TAB PO SCH (08:34)
--- NOTE | 2018-08-15 09:41 | PN ---
Date/Time of Note Date/Time of Note DATE: 08/15/18 TIME: 09:32 Assessment/Plan VTE Prophylaxis Risk score (from Ns)>0 risk: 4 SCD applied (from [facility] [place]): No SCD contraindicated: low risk/ambulating Pharmacological prophylaxis: NA/contraindicated Pharm contraindication: low risk/ambulating Lines/Catheters IV [facility]ter Type (from [facility] Saline Lock Urinary Cath still in place: No Assessment/Plan Assessment/Plan 1. Presyncope, likely vasovagal- resolved - no further episodes appreciated 2. Left pelvic pain - Imaging studies concerning for cyst vs mass - Boilermaker Apprentice consulted and awaiting recommendations. Currently patient has an outpatient follow up with Dr. Tang on at 2pm. If outer diameter grinder tool recommends inpatient will consult - CA125 within normal limits 3. Nonobstructive coronary artery disease. - continue on DAPT, statin,BB 4. Essential hypertension - Stable - Will adjust Lisinopril to 20mg BID given elevated readings in the afternoon/e vening 5. Hyperlipidemia - Statin 6. Chronic anemia - Stable H&H. Monitor 7. Diastolic dysfunction - cont.bb - Euvolemic 8. Obesity with BMI 31.9 - Lifestyle changes/weight reduction advised 9. Disposition - Awaiting recommendations from outer diameter grinder tool and if needed will consult outer diameter grinder tool onc as inp atient - continue all current care Result Diagram: 08/15/1851808/15/18518 Results 24hrs Laboratory Tests Test 08/14/18 14:22 08/15/18 05:19 CA 125 Antigen 12.5 White Blood Count 7.0 # Red Blood Count 4.32 Hemoglobin 12.2 Hematocrit 37.0 Mean Corpuscular Volume 85.6 Mean Corpuscular Hemoglobin 28.2 L Mean Corpuscular Hemoglobin Concent 33.0 Red Cell Distribution Width 14.7 H Platelet Count 305 Mean Platelet Volume 11.3 H Immature Granulocytes % 0.400 Neutrophils % 58.9 Lymphocytes % 24.9 Monocytes % 7.2 Eosinophils % 7.7 H Basophils % 0.9 Nucleated Red Blood Cells % 0.0 Immature Granulocytes # 0.030 Neutrophils # 4.1 Lymphocytes # 1.7 Monocytes # 0.5 Eosinophils # 0.5 Basophils # 0.1 Nucleated Red Blood Cells # 0.0 Sodium Level 142 Potassium Level 4.1 Chloride Level 107 Carbon Dioxide Level 25 Anion Gap 10 Blood Urea Nitrogen 15 Creatinine 0.64 Est Glomerular Filtrat Rate mL/min Glucose Level 116 Calcium Level 10.0 Magnesium Level 2.1 Subjective 24 Hr Interval Summary Free Text/Dictation Patient still with pain in abdominal area and complaining about not being able to sleep last night. Exam/Review of Systems Exam Vitals Vital Signs Date Temp Pulse Resp B/P (MAP) Pulse Ox O2 O2 Flow FiO2 Time Delivery Rate 08/15/18 Nasal 2.0 08:37 Cannula 08/15/18 80 08:01 08/15/18 98.6 20 137/79 96 07:36 (98) Intake and Output 08/14/18 08/14/18 08/15/18 1515:00 23:00 07:00 IntakeIntake Total 120 ml 1200 ml 600 ml BalanceBalance 120 ml 1200 ml 600 ml Exam General: Patient is in mild distress secondary to abdominal pain and fatigue Neck: Supple Chest: Nontender Lungs: clear bilaterally. no wheezing or rhonchi Heart: Normal S1-S2, Regular rhythm and rate. No murmur, S3, or S4 Abdomen: Soft , tender left lower quadrant, nondistended , bowel sounds are present. No guarding no rebound tenderness Extremities: Normal to inspection, no edema no cyanosis Skin: no rashes or lesions appreciated Results Results 24hrs Laboratory Tests Test 08/14/18 14:22 08/15/18 05:19 CA 125 Antigen 12.5 White Blood Count 7.0 # Red Blood Count 4.32 Hemoglobin 12.2 Hematocrit 37.0 Mean Corpuscular Volume 85.6 Mean Corpuscular Hemoglobin 28.2 L Mean Corpuscular Hemoglobin Concent 33.0 Red Cell Distribution Width 14.7 H Platelet Count 305 Mean Platelet Volume 11.3 H Immature Granulocytes % 0.400 Neutrophils % 58.9 Lymphocytes % 24.9 Monocytes % 7.2 Eosinophils % 7.7 H Basophils % 0.9 Nucleated Red Blood Cells % 0.0 Immature Granulocytes # 0.030 Neutrophils # 4.1 Lymphocytes # 1.7 Monocytes # 0.5 Eosinophils # 0.5 Basophils # 0.1 Nucleated Red Blood Cells # 0.0 Sodium Level 142 Potassium Level 4.1 Chloride Level 107 Carbon Dioxide Level 25 Anion Gap 10 Blood Urea Nitrogen 15 Creatinine 0.64 Est Glomerular Filtrat Rate mL/min Glucose Level 116 Calcium Level 10.0 Magnesium Level 2.1 Medications Medication Current Medications IV Flush (NS 3 ml) 3 ml PER PROTOCOL IV ; Start 08/12/18 at 20:00 Ondansetron HCl (Zofran Tab) 4 mg Q4H PRN PO NAUSEA/VOMITING; Start 08/12/18 at 20:00 Acetaminophen (Tylenol Tab) 650 mg Q6H PRN PO .PAIN 1-3 OR TEMP Last administered on 08/14/18 15:50; Admin Dose 650 MG; Start 08/12/18 at 20:00 Docusate Sodium (Colace) 100 mg Q12H PRN PO .CONSTIPATION; Start 08/12/18 at 20:00 Bisacodyl (Dulcolax) 5 mg DAILY PRN PO .CONSTIPATION Last administered on 08/14/18 08:47; Admin Dose 5 MG; Start 08/12/18 at 20:00 Aspirin (Aspirin) 81 mg DAILY PO Last administered on 08/15/18 08:34; Admin Dose 81 MG; Start 08/13/18 at 09:00 Clopidogrel Bisulfate (plaVIX) 75 mg DAILY PO Last administered on 08/15/18 08:34; Admin Dose 75 MG; Start 08/13/18 at 09:00 Isosorbide Mononitrate (Imdur) 30 mg DAILY PO Last administered on 08/15/18 08:34; Admin Dose 30 MG; Start 08/13/18 at 09:00 Magnesium Oxide (Mag-Ox 400) 400 mg DAILY PO Last administered on 08/15/18 08:33; Admin Dose 400 MG; Start 08/13/18 at 09:00 Atorvastatin Calcium (Lipitor) 20 mg QHS PO Last administered on 08/14/18 21:28; Admin Dose 20 MG; Start 08/12/18 at 21:00 Metoprolol Tartrate (Lopressor) 25 mg BID PO Last administered on 08/15/18 08:34; Admin Dose 25 MG; Start 08/13/18 at 09:00 Lisinopril (Zestril) 20 mg DAILY PO Last administered on 08/15/18 08:33; Admin Dose 20 MG; Start 08/13/18 at 09:00 Simethicone (Mylicon) 160 mg Q6H PRN PO DISTENSION/GAS/BLOATING Last administered on 08/13/18 18:20; Admin Dose 160 MG; Start 08/13/18 at 16:00 Pantoprazole (Protonix Iv) 40 mg BID@06,18 IV Last administered on 08/15/18at 05:43; Admin Dose 40 MG; Start 08/13/18 at 21:00 Ibuprofen (Motrin) 600 mg Q6H PRN PO neck pain; Start 08/14/18 at 09:00 SANDRA GRIFFIN MD August 15, 2018 09:41
--- NOTE | 2018-08-15 13:51 | CONS ---
Assessment/Plan Assessment/Plan Assessment/Plan (Daily) #Left Cystic Adnexal mass -this needs to be evaluated by [facility] COLLECTOR OPERATOR ONC surgically -if it is malignant, depending on the pathology and stage we would decide on adjuvant chemotherapy at that time #Syncopal episode -2/2 vasovagal event -pt currently is asymptomatic #CAD -s/p [facility] 07/28/18 -continue meds per cardiology Patient son at bed side-all Qs answered; he stated patient has appt with Dr Helton DUST COLLECTOR OPERATOR/ Oncology. Patient seen in collaboration with Dr Venegas Consultation Date/Type/Reason Admit Date/Time August 12, 2018 at 19:39 Initial Consult Date 08/14/18 Type of Consult ONCOLOGY Reason for Consultation Left adnexal cyst Requesting Provider: ALISE AGUILAR NP Date/Time of Note DATE: 08/15/18 TIME: 13:50 24 HR Interval Summary Free Text/Dictation resting in bed seems comfortable; denies any pain at present no new events reported last night Patient son at bed side-all Qs answered; he stated patient has appt with Dr Helton DUST COLLECTOR OPERATOR/ Oncology Dw staff Constitutional: requiring O2 Detailed Summary Eyes: no complaints ENT: no complaints Respiratory: no complaints Exam/Review of Systems Exam Vitals Vital Signs Date Temp Pulse Resp B/P (MAP) Pulse Ox O2 O2 Flow FiO2 Time Delivery Rate 08/15/18 63 12:01 08/15/18 98.3 20 143/64 94 11:24 (90) 08/15/18 Nasal 2.0 08:37 Cannula Intake and Output 08/14/18 08/14/18 08/15/18 1515:00 23:00 07:00 IntakeIntake Total 120 ml 1200 ml 600 ml BalanceBalance 120 ml 1200 ml 600 ml Constitutional: alert, well developed Psych: nl mood/affect Head: atraumatic Eyes: nl lids, nl sclera ENMT: nl external ears & nose Neck: non-tender Respiratory: clear to auscultation Cardiovascular: nl pulses, other (s1s2) Gastrointestinal: soft, non-tender Musculoskeletal: nl extremities to inspection Extremities: normal pulses Neurological: nl mental status, nl speech Skin: nl turgor Lymph: nontender Results Result Diagram: 08/15/1851808/15/18518 Results 24hrs Laboratory Tests Test 08/14/18 14:22 08/15/18 05:19 CA 125 Antigen 12.5 White Blood Count 7.0 # Red Blood Count 4.32 Hemoglobin 12.2 Hematocrit 37.0 Mean Corpuscular Volume 85.6 Mean Corpuscular Hemoglobin 28.2 L Mean Corpuscular Hemoglobin Concent 33.0 Red Cell Distribution Width 14.7 H Platelet Count 305 Mean Platelet Volume 11.3 H Immature Granulocytes % 0.400 Neutrophils % 58.9 Lymphocytes % 24.9 Monocytes % 7.2 Eosinophils % 7.7 H Basophils % 0.9 Nucleated Red Blood Cells % 0.0 Immature Granulocytes # 0.030 Neutrophils # 4.1 Lymphocytes # 1.7 Monocytes # 0.5 Eosinophils # 0.5 Basophils # 0.1 Nucleated Red Blood Cells # 0.0 Sodium Level 142 Potassium Level 4.1 Chloride Level 107 Carbon Dioxide Level 25 Anion Gap 10 Blood Urea Nitrogen 15 Creatinine 0.64 Est Glomerular Filtrat Rate mL/min Glucose Level 116 Calcium Level 10.0 Magnesium Level 2.1 Medications Medication Current Medications IV Flush (NS 3 ml) 3 ml PER PROTOCOL IV ; Start 08/12/18 at 20:00 Ondansetron HCl (Zofran Tab) 4 mg Q4H PRN PO NAUSEA/VOMITING; Start 08/12/18 at 20:00 Acetaminophen (Tylenol Tab) 650 mg Q6H PRN PO .PAIN 1-3 OR TEMP Last administered on 08/14/18at 15:50; Admin Dose 650 MG; Start 08/12/18 at 20:00 Docusate Sodium (Colace) 100 mg Q12H PRN PO .CONSTIPATION; Start 08/12/18 at 20:00 Bisacodyl (Dulcolax) 5 mg DAILY PRN PO .CONSTIPATION Last administered on 08/14/18 08:47; Admin Dose 5 MG; Start 08/12/18 at 20:00 Aspirin (Aspirin) 81 mg DAILY PO Last administered on 08/15/18 08:34; Admin Dose 81 MG; Start 08/13/18 at 09:00 Clopidogrel Bisulfate (plaVIX) 75 mg DAILY PO Last administered on 08/15/18 08:34; Admin Dose 75 MG; Start 08/13/18 at 09:00 Isosorbide Mononitrate (Imdur) 30 mg DAILY PO Last administered on 08/15/18 08:34; Admin Dose 30 MG; Start 08/13/18 at 09:00 Magnesium Oxide (Mag-Ox 400) 400 mg DAILY PO Last administered on 08/15/18 08:33; Admin Dose 400 MG; Start 08/13/18 at 09:00 Atorvastatin Calcium (Lipitor) 20 mg QHS PO Last administered on 08/14/18 21:28; Admin Dose 20 MG; Start 08/12/18 at 21:00 Metoprolol Tartrate (Lopressor) 25 mg BID PO Last administered on 08/15/18 08:34; Admin Dose 25 MG; Start 08/13/18 at 09:00 Simethicone (Mylicon) 160 mg Q6H PRN PO DISTENSION/GAS/BLOATING Last admin istered on 08/13/18at 18:20; Admin Dose 160 MG; Start 08/13/18 at 16:00 Pantoprazole (Protonix Iv) 40 mg BID@06,18 IV Last administered on 08/15/18at 05:43; Admin Dose 40 MG; Start 08/13/18 at 21:00 Ibuprofen (Motrin) 600 mg Q6H PRN PO neck pain; Start 08/14/18 at 09:00 Lisinopril (Zestril) 20 mg BID PO ; Start 08/15/18 at 21:00 Trazodone HCl (Desyrel) 50 mg HS PO ; Start 08/15/18 at 21:00 LENIN SEPULVEDA August 15, 2018 13:51
[2018-08-15] MEDS: IBUPROFEN 600 MG TAB PO PRN ×2 (13:58→20:34)
[2018-08-15] MEDS: ACETAMINOPHEN 325 MG TAB PO PRN (18:53)
[2018-08-15] MEDS: ATORVASTATIN 20 MG TAB PO SCH (20:33)
[2018-08-15] MEDS: traZODone 50 MG TAB PO SCH (21:24)
[2018-08-16] VITALS (10 sets, daily range): BP systolic 138–195; BP diastolic 67–83; PULSE 51–72; RESP 19–20
[2018-08-16] MEDS: PANTOPRAZOLE 40 MG INJ IV SCH ×2 (05:30→17:20)
[2018-08-16] MEDS: ASPIRIN 81 MG TAB PO SCH (08:30)
[2018-08-16] MEDS: CLOPIDOGREL 75 MG TAB PO SCH (08:30)
[2018-08-16] MEDS: ISOSORBIDE MONONITRATE(SR)30 MG TAB PO SCH (08:31)
[2018-08-16] MEDS: LISINOPRIL 20 MG TAB PO SCH ×2 (08:31→20:02)
[2018-08-16] MEDS: METOPROLOL 25 MG TAB PO SCH ×2 (08:31→20:03)
[2018-08-16] MEDS: MAGNESIUM OXIDE 400 MG TAB PO SCH (08:31)
[2018-08-16] MEDS: ACETAMINOPHEN 325 MG TAB PO PRN (08:34)
--- NOTE | 2018-08-16 09:55 | PN ---
Date/Time of Note Date/Time of Note DATE: 08/16/18 TIME: 09:46 Assessment/Plan VTE Prophylaxis Risk score (from Nsg)>0 risk: 4 SCD applied (from Nsg): No SCD contraindicated: low risk/ambulating Pharmacological prophylaxis: NA/contraindicated Pharm contraindication: low risk/ambulating Lines/Catheters IV Catheter Type (from Nrs): Saline Lock Urinary Cath still in place: No Assessment/Plan Assessment/Plan 1. Left pelvic pain - Transport Rn consult still pending and awaiting recommendations for further intervention. Plans for follow up with Dr. Tang as outpatient but mobile security specialist recommending intervention, will consult while inhouse - Imaging studies concerning for cyst vs mass - CA125 within normal limits, HE4 still pending 2. headache - supportive care 3. Presyncope, likely vasovagal- resolved - no further episodes appreciated 4. Nonobstructive coronary artery disease. - continue on DAPT, statin,BB 5. Essential hypertension - Stable - Persists with elevated BP and currently on imdur, BB, and lisinopril - will add hydralazine PRN and if needing often, will order standing dose based on requirements 6. Hyperlipidemia - Statin 7. Chronic anemia - Stable H&H. Monitor 8. Diastolic dysfunction - cont.bb - Euvolemic 9. Obesity with BMI 31.9 - Lifestyle changes/weight reduction advised 10. Disposition - Transport Rn recommendations pending for ovarian cyst vs mass. Once obtain recommendations, will determine further plan of care. Discussed with son and patient at bedside. Result Diagram: 08/15/1851808/15/18518 Subjective 24 Hr Interval Summary Free Text/Dictation Patient complaining of headache with relief after given Tylenol. Still with LLQ tenderness but states not bothersome. No acute overnight events. Exam/Review of Systems Exam Vitals Vital Signs Date Temp Pulse Resp B/P (MAP) Pulse Ox O2 O2 Flow FiO2 Time Delivery Rate 08/16/18 62 08:01 08/16/18 98.7 19 179/77 96 07:13 (111) 08/15/18 Nasal 2.0 19:15 Cannula Intake and Output 08/15/18 08/15/18 08/16/18 1515:00 23:00 07:00 IntakeIntake Total 1000 ml 700 ml BalanceBalance 1000 ml 700 ml Exam General: Patient is in no acute distress. answering questions appropriately Neck: Supple Chest: Nontender Lungs: clear bilaterally. no wheezing or rhonchi Heart: Normal S1-S2, Regular rhythm and rate. No murmur, S3, or S4 Abdomen: Soft , tender left lower quadrant, nondistended , bowel sounds are present. No guarding no rebound tenderness Extremities: Normal to inspection, no edema no cyanosis Skin: no rashes or lesions appreciated Medications Medication Current Medications IV Flush (NS 3 ml) 3 ml PER PROTOCOL IV ; Start 08/12/18 at 20:00 Ondansetron HCl (Zofran Tab) 4 mg Q4H PRN PO NAUSEA/VOMITING; Start 08/12/18 at 20:00 Acetaminophen (Tylenol Tab) 650 mg Q6H PRN PO .PAIN 1-3 OR TEMP Last administered on 08/16/18 08:34; Admin Dose 650 MG; Start 08/12/18 at 20:00 Docusate Sodium (Colace) 100 mg Q12H PRN PO .CONSTIPATION; Start 08/12/18 at 20:00 Bisacodyl (Dulcolax) 5 mg DAILY PRN PO .CONSTIPATION Last administered on 08/14/18 08:47; Admin Dose 5 MG; Start 08/12/18 at 20:00 Aspirin (Aspirin) 81 mg DAILY PO Last administered on 08/16/18 08:30; Admin Dose 81 MG; Start 08/13/18 at 09:00 Clopidogrel Bisulfate (plaVIX) 75 mg DAILY PO Last administered on 08/16/18 08:30; Admin Dose 75 MG; Start 08/13/18 at 09:00 Isosorbide Mononitrate (Imdur) 30 mg DAILY PO Last administered on 08/16/18 08:31; Admin Dose 30 MG; Start 08/13/18 at 09:00 Magnesium Oxide (Mag-Ox 400) 400 mg DAILY PO Last administered on 08/16/18 08:31; Admin Dose 400 MG; Start 08/13/18 at 09:00 Atorvastatin Calcium (Lipitor) 20 mg QHS PO Last administered on 08/15/18 20:33; Admin Dose 20 MG; Start 08/12/18 at 21:00 Metoprolol Tartrate (Lopressor) 25 mg BID PO Last administered on 08/16/18 08:31; Admin Dose 25 MG; Start 08/13/18 at 09:00 Simethicone (Mylicon) 160 mg Q6H PRN PO DISTENSION/GAS/BLOATING Last administered on 08/13/18 18:20; Admin Dose 160 MG; Start 08/13/18 at 16:00 Pantoprazole (Protonix Iv) 40 mg BID@06,18 IV Last administered on 08/16/18 05:30; Admin Dose 40 MG; Start 08/13/18 at 21:00 Ibuprofen (Motrin) 600 mg Q6H PRN PO neck pain Last administered on 08/15/18 20:34; Admin Dose 600 MG; Start 08/14/18 at 09:00 Lisinopril (Zestril) 20 mg BID PO Last administered on 08/16/18 08:31; Admin Dose 20 MG; Start 08/15/18 at 21:00 Trazodone HCl (Desyrel) 50 mg HS PO Last administered on 08/15/18 21:24; Admin Dose 50 MG; Start 08/15/18 at 21:00 SANDRA GRIFFIN MD August 16, 2018 09:55
--- NOTE | 2018-08-16 11:43 | CONS ---
Assessment/Plan Assessment/Plan Assessment/Plan (Daily) #Left Cystic Adnexal mass -this needs to be evaluated by ICE CREAM CHEF ONC surgically -if it is malignant, depending on the pathology and stage we would decide on adjuvant chemotherapy at that time - pending Truck Bracer consult #Syncopal episode -2/2 vasovagal event -pt currently is asymptomatic #CAD -s/p [facility] 07/28/18 -continue meds per cardiology # Hypertension- 159/72 - per primary MD Patient was to discharge today but she had SBP 195 last night. Truck Bracer consult pending. Patient seen in collaboration with Dr Venegas Consultation Date/Type/Reason Admit Date/Time August 12, 2018 at 19:39 Initial Consult Date 08/14/18 Type of Consult ONCOLOGY Reason for Consultation LEFT ADNEXAL MASS Requesting Provider: ALISE AGUILAR NP Date/Time of Note DATE: 08/16/18 TIME: 11:40 24 HR Interval Summary Free Text/Dictation resting in bed seems comfortable; denies any pain at present no new events reported last night Patient son at bed side-all Qs answered; he stated patient has appt with Dr Tang- [facility] CHE[facility]/ Oncology [facility] staff Constitutional: requiring O2 Detailed Summary Eyes: no complaints ENT: no complaints Respiratory: no complaints Cardiovascular: no complaints Gastrointestinal: no complaints Genitourinary: other Musculoskeletal: no complaints Skin: no complaints Neurologic: no complaints Endocrine: no complaints Psychological: nl mood/affect Exam/Review of Systems Exam Vitals Vital Signs Date Temp Pulse Resp B/P (MAP) Pulse Ox O2 O2 Flow FiO2 Time Delivery Rate 08/16/18 98.2 57 19 159/72 97 11:24 (101) 08/15/18 Nasal 2.0 19:15 Cannula Intake and Output 08/15/18 08/15/18 08/16/18 1515:00 23:00 07:00 IntakeIntake Total 1000 ml 700 ml BalanceBalance 1000 ml 700 ml Constitutional: alert, well developed Psych: nl mood/affect Head: atraumatic Eyes: nl lids ENMT: nl external ears & nose Neck: non-tender Respiratory: clear to auscultation Cardiovascular: nl pulses, other (S1S2) Gastrointestinal: soft, non-tender Musculoskeletal: nl extremities to inspection Extremities: normal pulses Neurological: nl mental status, nl speech Skin: nl turgor Results Result Diagram: 551808/15/18518 Medications Medication Current Medications IV Flush (NS 3 ml) 3 ml PER PROTOCOL IV ; Start 08/12/18 at 20:00 Ondansetron HCl (Zofran Tab) 4 mg Q4H PRN PO NAUSEA/VOMITING; Start 08/12/18 at 20:00 Acetaminophen (Tylenol Tab) 650 mg Q6H PRN PO .PAIN 1-3 OR TEMP Last administered on 08/16/18 08:34; Admin Dose 650 MG; Start 08/12/18 at 20:00 Docusate Sodium (Colace) 100 mg Q12H PRN PO .CONSTIPATION; Start 08/12/18 at 20:00 Bisacodyl (Dulcolax) 5 mg DAILY PRN PO .CONSTIPATION Last administered on 08/14/18 08:47; Admin Dose 5 MG; Start 08/12/18 at 20:00 Aspirin (Aspirin) 81 mg DAILY PO Last administered on 08/16/18 08:30; Admin Dose 81 MG; Start 08/13/18 at 09:00 Clopidogrel Bisulfate (plaVIX) 75 mg DAILY PO Last administered on 08/16/18 08:30; Admin Dose 75 MG; Start 08/13/18 at 09:00 Isosorbide Mononitrate (Imdur) 30 mg DAILY PO Last administered on 08/16/18 08:31; Admin Dose 30 MG; Start 08/13/18 at 09:00 Magnesium Oxide (Mag-Ox 400) 400 mg DAILY PO Last administered on 08/16/18 08:31; Admin Dose 400 MG; Start 08/13/18 at 09:00 Atorvastatin Calcium (Lipitor) 20 mg QHS PO Last administered on 08/15/18 20:33; Admin Dose 20 MG; Start 08/12/18 at 21:00 Metoprolol Tartrate (Lopressor) 25 mg BID PO Last administered on 08/16/18 08:31; Admin Dose 25 MG; Start 08/13/18 at 09:00 Simethicone (Mylicon) 160 mg Q6H PRN PO DISTENSION/GAS/BLOATING Last administered on 08/13/18 18:20; Admin Dose 160 MG; Start 08/13/18 at 16:00 Pantoprazole (Protonix Iv) 40 mg BID@18 IV Last administered on 08/16/18at 05: 30; Admin Dose 40 MG; Start 08/13/18 at 21:00 Ibuprofen (Motrin) 600 mg Q6H PRN PO neck pain Last administered on 08/15/18at 20:34; Admin Dose 600 MG; Start 08/14/18 at 09:00 Lisinopril (Zestril) 20 mg BID PO Last administered on 08/16/18at 08:31; Admin Dose 20 MG; Start 08/15/18 at 21:00 Trazodone HCl (Desyrel) 50 mg HS PO Last administered on 08/15/18at 21:24; Admin Dose 50 MG; Start 08/15/18 at 21:00 Hydralazine HCl (Apresoline) 10 mg Q4H PRN IV SBP >170; Start 08/16/18 at 10:00 LENIN SEPULVEDA August 16, 2018 11:43
[2018-08-16] MEDS: IBUPROFEN 600 MG TAB PO PRN ×2 (15:17→23:01)
[2018-08-16] MEDS: traZODone 50 MG TAB PO SCH (20:03)
[2018-08-16] MEDS: ATORVASTATIN 20 MG TAB PO SCH (20:05)
[2018-08-16] MEDS: hydrALAzine 20 MG INJ IV PRN (21:13)
[2018-08-17] VITALS (10 sets, daily range): BP systolic 132–180; BP diastolic 60–86; PULSE 63–87; RESP 18–20
[2018-08-17] MEDS: hydrALAzine 20 MG INJ IV PRN (03:55)
[2018-08-17] MEDS: ACETAMINOPHEN 325 MG TAB PO PRN (03:56)
[2018-08-17] MEDS: PANTOPRAZOLE 40 MG INJ IV SCH (05:27)
[2018-08-17] MEDS: MAGNESIUM OXIDE 400 MG TAB PO SCH (08:05)
[2018-08-17] MEDS: ASPIRIN 81 MG TAB PO SCH (08:05)
[2018-08-17] MEDS: CLOPIDOGREL 75 MG TAB PO SCH (08:06)
[2018-08-17] MEDS: ISOSORBIDE MONONITRATE(SR)30 MG TAB PO SCH (08:07)
[2018-08-17] MEDS: LISINOPRIL 20 MG TAB PO SCH (08:07)
[2018-08-17] MEDS: METOPROLOL 25 MG TAB PO SCH (08:07)
[2018-08-17] MEDS ORDERED: AMLODIPINE 10 MG TAB PO SCH (09:00)
--- NOTE | 2018-08-17 09:58 | CONS ---
Assessment/Plan Assessment/Plan Hospital Course (Demo Recall) #Left Cystic Adnexal mass -this needs to be evaluated by [facility] MATH TUTOR ONC surgically -if it is malignant, depending on the pathology and stage we would decide on adjuvant chemotherapy at that time #Syncopal episode -2/2 vasovagal event -pt currently is asymptomatic #CAD -s/p [facility] 07/28/18 -continue meds per cardiology Consultation Date/Type/Reason Admit Date/Time August 12, 2018 at 19:39 Initial Consult Date 08/14/18 Type of Consult oncology Reason for Consultation adnexal mass Requesting Provider: ALISE AGUILAR NP Date/Time of Note DATE: 08/17/18 TIME: 09:50 24 HR Interval Summary Free Text/Dictation patient has headache and elevated BP Constitutional: no complaints Exam/Review of Systems Exam Vitals Vital Signs Date Temp Pulse Resp B/P (MAP) Pulse Ox O2 O2 Flow FiO2 Time Delivery Rate 08/17/18 87 151/67 09:15 (95) 87 142/65 (90) 85 132/60 (84) 08/17/18 98.6 18 97 07:13 08/15/18 Nasal 2.0 19:15 Cannula Intake and Output 08/16/18 08/16/18 08/17/18 1515:00 23:00 07:00 IntakeIntake Total 600 ml 650 ml BalanceBalance 600 ml 650 ml Constitutional: alert, oriented Psych: depression Head: normocephalic Eyes: nl conjunctiva ENMT: nl external ears & nose Neck: supple Respiratory: clear to auscultation Cardiovascular: regular rate and rhythm Gastrointestinal: soft Musculoskeletal: nl extremities to inspection Extremities: normal pulses Neurological: CHAPLAINCY II-XII intact Skin: nl turgor Results Result Diagram: 08/15/1851808/15/18518 Medications Medication Current Medications IV Flush (NS 3 ml) 3 ml PER PROTOCOL IV ; Start 08/12/18 at 20:00 Ondansetron HCl (Zofran Tab) 4 mg Q4H PRN PO NAUSEA/VOMITING; Start 08/12/18 at 20:00 Acetaminophen (Tylenol Tab) 650 mg Q6H PRN PO .PAIN 1-3 OR TEMP Last administered on 08/17/18at 03:56; Admin Dose 650 MG; Start 08/12/18 at 20:00 Docusate Sodium (Colace) 100 mg Q12H PRN PO .CONSTIPATION; Start 08/12/18 at 20:00 Bisacodyl (Dulcolax) 5 mg DAILY PRN PO .CONSTIPATION Last administered on 08/14/18 08:47; Admin Dose 5 MG; Start 08/12/18 at 20:00 Aspirin (Aspirin) 81 mg DAILY PO Last administered on 08/17/18 08:05; Admin Dose 81 MG; Start 08/13/18 at 09:00 Clopidogrel Bisulfate (plaVIX) 75 mg DAILY PO Last administered on 08/17/18 08:06; Admin Dose 75 MG; Start 08/13/18 at 09:00 Isosorbide Mononitrate (Imdur) 30 mg DAILY PO Last administered on 08/17/18 08:07; Admin Dose 30 MG; Start 08/13/18 at 09:00 Magnesium Oxide (Mag-Ox 400) 400 mg DAILY PO Last administered on 08/17/18 08:05; Admin Dose 400 MG; Start 08/13/18 at 09:00 Atorvastatin Calcium (Lipitor) 20 mg QHS PO Last administered on 08/16/18 20:05; Admin Dose 20 MG; Start 08/12/18 at 21:00 Metoprolol Tartrate (Lopressor) 25 mg BID PO Last administered on 08/17/18 08:07; Admin Dose 25 MG; Start 08/13/18 at 09:00 Simethicone (Mylicon) 160 mg Q6H PRN PO DISTENSION/GAS/BLOATING Last administered on 08/13/18 18:20; Admin Dose 160 MG; Start 08/13/18 at 16:00 Pantoprazole (Protonix Iv) 40 mg BID@06,18 IV Last administered on 08/17/18 05:27; Admin Dose 40 MG; Start 08/13/18 at 21:00 Ibuprofen (Motrin) 600 mg Q6H PRN PO neck pain Last administered on 08/16/18 23:01; Admin Dose 600 MG; Start 08/14/18 at 09:00 Lisinopril (Zestril) 20 mg BID PO Last administered on 08/17/18 08:07; Admin Dose 20 MG; Start 08/15/18 at 21:00 Trazodone HCl (Desyrel) 50 mg HS PO Last administered on 08/16/18at 20:03; Admin Dose 50 MG; Start 08/15/18 at 21:00 Hydralazine HCl (Apresoline) 10 mg Q4H PRN IV SBP >170 Last administered on 08/17/18at 03:55; Admin Dose 10 MG; Start 08/16/18 at 10:00 Amlodipine Besylate (Norvasc) 10 mg DAILY PO Last administered on 08/17/18at 08:07; Admin Dose 10 MG; Start 08/17/18 at 09:00 LUCY ROGER M.D. August 17, 2018 09:58
[2018-08-17] MEDS ORDERED: KETOROLAC 30 MG INJ IM STA (11:05)
--- NOTE | 2018-08-17 11:13 | PN ---
Date/Time of Note Date/Time of Note DATE: 08/17/18 TIME: 11:09 Assessment/Plan VTE Prophylaxis Risk score (from Nsg)>0 risk: 4 SCD applied (from Ns): Yes Pharmacological prophylaxis: NA/contraindicated Pharm contraindication: low risk/ambulating Lines/Catheters [facility] Urinary Cath still in place: No Assessment/Plan Hospital Course PHYSICAL EXAM: Constitutional: Adequately built,elderly female,not in acute distress, anxious HEENT: Head atraumatic and normocephalic. Eyes: Extraocular muscles intact. Anicteric sclerae. Pupils equal bilaterally, reactive to light. NECK: Supple without lymph node. CHEST: Clear and good breath sounds equally. No wheezing. No rhonchi. HEART: S1, S2. Regular rate and rhythm. ABDOMEN: Tenderness to left pelvic area. no rebound tenderness. Bowel sounds were present. EXTREMITIES: No cyanosis, clubbing or edema. NEUROLOGIC: Alert and oriented x3. No focal deficit. No sensory deficit. INTEGUMENTARY: No open wounds. ASSESSMENT AND PLAN: 77-year-old obese female with DD, htn,hyperlipidemia,anemia,CAD, admitted for presyncope, also noted w/mild bradycardia. Presyncope, likely vasovagal, patient with headaches -No further symptoms. ACS/neurovascular events ruled out. -PT follow-up Left pelvic pain: CT/US w/ Large left adnexal cyst/mass, concerning for neoplasm -no ct/us evidence of torsion.. Nonobstructive coronary artery disease. -on DAPT, statin,BB Essential hypertension -Stable -bb as HR tolerated /acei Hyperlipidemia -Statin Chronic anemia -Stable H&H. Monitor Diastolic dysfunction -cont.bb -Euvolemic Obesity with BMI 31.9 -Lifestyle changes/weight reduction advised DVT prophylaxis: SCDs/ambulation PUD prophylaxis: Pepcid Disposition: Patient has outpatient follow-up with gynecology oncology set up by her insurance for tomorrow at 2 PM. I spoke with laborist control tower operator, Dr. Avalos will see her today to assess if she is stable for outpatient follow-up. If cleared she will be discharged home to follow-up outpatient tomorrow. For her headaches, it is likely secondary to nitrate therapy, will DC nitrates for now, replace with beta-carlos. Use nitrates as needed only for chest pain. Result Diagram: 5/4/19 0519 5/4/19 0519 Subjective 24 Hr Interval Summary Free Text/Dictation occipital headache, not relieved by tylenol Exam/Review of Systems Exam Vitals Vital Signs Date Temp Pulse Resp B/P (MAP) Pulse Ox O2 O2 Flow FiO2 Time Delivery Rate 08/17/18 87 151/67 09:15 (95) 87 142/65 (90) 85 132/60 (84) 08/17/18 98.6 18 97 07:13 08/15/18 Nasal 2.0 19:15 Cannula Intake and Output 08/16/18 08/16/18 08/17/18 1515:00 23:00 07:00 IntakeIntake Total 600 ml 650 ml BalanceBalance 600 ml 650 ml Medications Medication Current Medications IV Flush (NS 3 ml) 3 ml PER PROTOCOL IV ; Start 08/12/18 at 20:00 Ondansetron HCl (Zofran Tab) 4 mg Q4H PRN PO NAUSEA/VOMITING; Start 08/12/18 at 20:00 Acetaminophen (Tylenol Tab) 650 mg Q6H PRN PO .PAIN 1-3 OR TEMP Last administ ered on 08/17/18at 03:56; Admin Dose 650 MG; Start 08/12/18 at 20:00 Docusate Sodium (Colace) 100 mg Q12H PRN PO .CONSTIPATION; Start 08/12/18 at 20:00 Bisacodyl (Dulcolax) 5 mg DAILY PRN PO .CONSTIPATION Last administered on 08/14/18at 08:47; Admin Dose 5 MG; Start 08/12/18 at 20:00 Aspirin (Aspirin) 81 mg DAILY PO Last administered on 08/17/18 08:05; Admin Dose 81 MG; Start 08/13/18 at 09:00 Clopidogrel Bisulfate (plaVIX) 75 mg DAILY PO Last administered on 08/17/18 08:06; Admin Dose 75 MG; Start 08/13/18 at 09:00 Isosorbide Mononitrate (Imdur) 30 mg DAILY PO Last administered on 08/17/18 08:07; Admin Dose 30 MG; Start 08/13/18 at 09:00 Magnesium Oxide (Mag-Ox 400) 400 mg DAILY PO Last administered on 08/17/18 08:05; Admin Dose 400 MG; Start 08/13/18 at 09:00 Atorvastatin Calcium (Lipitor) 20 mg QHS PO Last administered on 08/16/18 20:05; Admin Dose 20 MG; Start 08/12/18 at 21:00 Metoprolol Tartrate (Lopressor) 25 mg BID PO Last administered on 08/17/18 08:07; Admin Dose 25 MG; Start 08/13/18 at 09:00 Simethicone (Mylicon) 160 mg Q6H PRN PO DISTENSION/GAS/BLOATING Last administered on 08/13/18 18:20; Admin Dose 160 MG; Start 08/13/18 at 16:00 Pantoprazole (Protonix Iv) 40 mg BID@18 IV Last administered on 08/17/18 05:27; Admin Dose 40 MG; Start 08/13/18 at 21:00 Ibuprofen (Motrin) 600 mg Q6H PRN PO neck pain Last administered on 08/16/18 23:01; Admin Dose 600 MG; Start 08/14/18 at 09:00 Lisinopril (Zestril) 20 mg BID PO Last administered on 08/17/18 08:07; Admin Dose 20 MG; Start 08/15/18 at 21:00 Trazodone HCl (Desyrel) 50 mg HS PO Last administered on 08/16/18 20:03; Admin Dose 50 MG; Start 08/15/18 at 21:00 Hydralazine HCl (Apresoline) 10 mg Q4H PRN IV SBP >170 Last administered on 08/17/18 03:55; Admin Dose 10 MG; Start 08/16/18 at 10:00 Amlodipine Besylate (Norvasc) 10 mg DAILY PO Last administered on 08/17/18 08:07; Admin Dose 10 MG; Start 08/17/18 at 09:00 CALVIN MAZA August 17, 2018 11:13
[2018-08-17] MEDS ORDERED: METOPROLOL 25 MG TAB PO ONE (11:30)
[2018-08-17] MEDS ORDERED: METOCLOPRAMIDE 10 MG INJ IV ONE (11:30)
--- NOTE | 2018-08-17 12:27 | QN ---
Documentation Comment THANK YOU FOR CONSULT This is a 77 yo left adnexal mass ,possible malignancy No [employer] symptoms at this time.Vague abdominal pain PMH HTN ,syncope ,hyperlipidemia Allergy codeine PE Vs stable Gen NAD Abd soft ND and LLQ tenderness in deep palpation and no rebound Genitalia No blood at perineum As D/w ,the patient needs to be seen with a [employer] oncologist Patient's questions answered Please contact bias cutter [employer]uru for any new symptoms AMY MIDDLETON M.D. August 17, 2018 12:27
[2018-08-17] MEDS ORDERED: RANO500T2 PO (14:58)
[2018-08-17] MEDS ORDERED: METO25TA4 PO (15:05)
--- NOTE | 2018-08-17 15:05 | DS ---
Date/Time of Note Date/Time of Note DATE: 08/17/18 TIME: 14:59 Discharge Summary Admission/Discharge Info Admit Date/Time August 12, 2018 at 19:39 Discharge Date/Time Discharge Diagnosis Presyncope, likely vasovagal. hypertension anemia hepatic steatosis nonobstructive coronary artery disease/very recent NSTEMI,Status post [facility] 07/28/2018, Hyperlipidemia diastolic dysfunction Patient Condition: Stable Consults Power Station Operator: Henrique Lancaster MD Cardiology: Jose Adam MD . Procedures See hospital course . Hospital Course 77-year-old obese female with DD,htn,hyperlipidemia,anemia,CAD, admitted for presyncope, also noted w/mild bradycardia. -Presyncope, likely vasovagal, -No further symptoms. ACS/neurovascular events ruled out, s/p PT review, no further skilled need, BB dosage reduced -Left pelvic pain: CT/US w/ Large left adnexal cyst/mass, concerning for neoplasm, no ct/us evidence of torsion. Patient sen by Power Station Operator, recommends Power Station Operator Onc review, appointment made with Dr Tang at [facility] tomorrow at 2pm. Patient notified -Nonobstructive coronary artery disease, statin,BB, idur changed ro ranexa for headache. s/p cardio review -Essential hypertension: Patient has a history of this condition. No acute issues so far on this admission. -Hyperlipidemia -Statin -Chronic anemia -Stable H&H. -Diastolic dysfunction -cont.bb, Euvolemic -Obesity with BMI 31.9 -Lifestyle changes/weight reduction advised Comorbidities were also aggressively managed as per Med records. Patient at this time has been evaluated and examined in detail and is assessed to be in stable condition and ready for discharge. Home Meds Active Scripts Ranolazine* (Ranexa*) 500 Mg Tab.sr.12h, 500 MG PO Q12, #60 TAB 2 Refills replacement for Imdur Prov:LINKCALVIN 08/17/18 Aspirin (Aspirin) 81 Mg Chew, 81 MG PO DAILY, #30 TAB Prov:AGUILARALISE V. [employer] 07/31/18 Clopidogrel Bisulfate (Clopidogrel) 75 Mg Tablet, 75 MG PO DAILY, #30 TAB Prov:AGUILARALISE V[employer] 07/31/18 Reported Medications Lisinopril* (Lisinopril*) 10 Mg Tablet, 10 MG PO DAILY, #30 TAB 08/12/18 Simvastatin* (Zocor*) 40 Mg Tablet, 40 MG PO QHS, #30 TAB 08/12/18 Magnesium Oxide* (Mag-Oxide*) 400 Mg Tablet, 400 MG PO QWED AND FRIDAY, TAB 07/23/18 Discontinued Reported Medications Naproxen* (Naproxen*) 500 Mg Tablet, 500 MG PO BID, TAB 08/12/18 Tramadol Hcl* (Ultram*) 50 Mg Tablet, 50 MG PO Q6H PRN for PAIN, TAB 08/12/18 Ondansetron Hcl* (Zofran*) 4 Mg Tab, 4 MG PO Q6H PRN for NAUSEA AND OR VOMITING, TAB 08/12/18 Sennosides* (Senna Lax*) 8.6 Mg Tablet, 1 TAB PO BID, TAB 07/23/18 Simvastatin (Simvastatin) 40 Mg Tablet, 40 MG PO HS, TAB 10/25/14 Discontinued Scripts Isosorbide Mononitrate* (Isosorbide Mononitrate*) 30 Mg Tab.er.24h, 30 MG PO DAILY, #30 TAB Prov:ALISE AGUILAR V[employer] 07/31/18 Metoprolol Tartrate* (Lopressor*) 50 Mg Tab, 50 MG PO BID, #60 TAB Prov:AGIULARALISE V. [employer] 07/31/18 Lisinopril* (Lisinopril*) 20 Mg Tablet, 40 MG PO DAILY, #30 TAB Prov:ALISE AGUILAR [employer] 07/31/18 Follow-up Plan Follow-up with primary care physician in 1 week. Primary Care Provider Christiano Hyatt Time spent on discharge: > 30 minutes CALVIN MAZA August 17, 2018 15:05
--- NOTE | 2018-08-17 15:56 | CONS ---
DATE OF ADMISSION: 08/12/2018 DATE OF CONSULTATION: 08/17/2018 TYPE OF CONSULTATION: Cardiology. REASON FOR CONSULTATION: Headache, assess medical management of coronary artery disease as well as t he near syncope, rule out cardiac etiology. REQUESTING PHYSICIAN: Calvin Maza MD HISTORY OF PRESENT ILLNESS: Ms. Chand is a 77-year-old female with a history of coronary artery dis ease, nonobstructive by catheterization in 07/28/2018, hypertension, dyslipidemia, who had been disch arged to outpatient followup and states that she was standing in line and began to have problems with catching her breath and then began to feel faint and thought she was going to pass out. The patient subsequently presented to the emergency department here at [facility] where upon a rrival initially back on 08/12/2018, temperature 97.8, blood pressure markedly elevated at 204/105, p ulse 70, respiratory rate 20, saturating 99%. The patient's labs were notable for white blood cell c ount of 7.9, hemoglobin 11.0, platelet count of 268, sodium 133, potassium 4.2, creatinine 0.56, BUN 12, troponin negative, TSH 2.66, albumin of 4. The patient underwent a carotid Doppler that revealed no evidence of hemodynamically significant stenosis, a head CT revealing no intracranial hemorrhage, mass effect or midline shift, a CTA of the chest that revealed pulmonary arteries unremarkable, no p ulmonary embolism, no dissection and cervical spine CT that revealed cervical spine multilevel degene rative changes. The patient was admitted to the floor and since admit to the floor, has been monitor ed on telemetry with no significant arrhythmias, pauses noted. The patient has additionally been shireen luated by oncology due to the left cystic adnexal mass seen on abdominal CT and is being evaluated by the gynecology for this as well. The patient at this time denies chest pain, shortness of breath. PAST MEDICAL HISTORY: As above in HPI. MEDICATIONS CURRENTLY IN HOSPITAL: 1. Metoprolol 50 mg p.o. b.i.d. 2. Norvasc 10 mg daily. 3. Hydralazine 10 mg IV q.4 p.r.n. 4. Zestril 20 mg b.i.d. 5. Trazodone 50 mg at bedtime. 6. Protonix 40 mg b.i.d. 7. Ibuprofen 600 mg q.6 p.r.n. 8. Aspirin 81 daily. 9. Plavix 75 daily. 10. Magnesium oxide 400 mg daily. 11. Lipitor 10 mg at bedtime. 12. Zofran p.r.n. 13. Tylenol p.r.n. 14. Colace p.r.n. 15. Dulcolax p.r.n. ALLERGIES: CODEINE. SOCIAL HISTORY: No current tobacco, EtOH or illicit drug use. FAMILY HISTORY: No history of sudden cardiac or early CAD. REVIEW OF SYSTEMS: As above in HPI. CONSTITUTIONAL: No fevers, chills. PULMONARY: No current shortness of breath. CARDIOVASCULAR: No current chest pain. GASTROINTESTINAL: No vomiting. GENITOURINARY: No hematuria. MUSCULOSKELETAL: Degenerative joint disease. PSYCHIATRIC: Possible anxiety. NEUROLOGIC: Presyncopal episode. PHYSICAL EXAMINATION: VITAL SIGNS: Temperature of 98.6, blood pressure most recently 151/67 with negative orthostatics don e today. GENERAL: The patient is alert, awake, in no acute distress. NECK: JVP is approximately 8 to 9 cm of water. CHEST: Fair air movement throughout. HEART: Regular rate and rhythm. Normal S1, S2, I/ systolic murmur, nondisplaced PMI. ABDOMEN: Positive bowel sounds, soft. EXTREMITIES: No edema, 1+ pulses bilateral posterior tibial. LABORATORY DATA: Most recent from 08/15/2018, white count 7, hemoglobin 12.2, platelet count 305. S odium 142, potassium 4.1, creatinine 0.6, BUN 15. UA negative. IMAGING STUDIES: As above in HPI with additionally the patient had a pelvic ultrasound which showed a large cystic mass, left adnexa, suspicious for possible ovarian neoplasm. ELECTROCARDIOGRAM: As above in HPI. No further electrocardiogram for my review at this time, but by telemetry she is in sinus rhythm. IMPRESSION: 1. Presyncopal episode. Rule out cardiac etiology. Rule out cardiac arrhythmia. No signs of cardi ac rhythm at this time. The patient is having a heart catheterization within the last month, reveali ng no significant obstructive coronary artery disease with normal EF and no significant valve abnorma lities, questionable vasovagal syncope. 2. Hypertension, mildly elevated. 3. Headache. Assess management of nonobstructive coronary artery disease. The patient has been on oral nitrates, possible etiology of headache. 4. Dyslipidemia. 5. Pelvic mass, rule out neoplasm. 6. Degenerative joint disease. 7. Possible anxiety. RECOMMENDATIONS: 1. At this time, we would hold the patient's oral nitrates, Imdur and follow for resolution of the p atient's headache. 2. I agree with increase in patient's beta carlos to offset decrease in medication dose. Continue the patient's Norvasc and Zestril. Follow blood pressure closely. 3. Continue patient's dual antiplatelet therapy for prevention of further cardiovascular events. 4. Continue the patient's statin therapy at this time. 5. We would check a baseline EKG to assess for any significant abnormalities and the patient remains in hospital. Check repeat EKG tomorrow to assess for any changes, although the patient's recent cat heterization shows no significant obstructive coronary artery disease. 6. For recurrent chest pain, we would initiate the patient on Ranexa. Thank you for allowing me to take part in the care of this patient. I will continue to follow her ve ry closely with you with further recommendations will be made as the patient progresses through her [facility] clinical course. Dictated By: VENKATA BERNAL/ALHAJI Conf#: [id number] DID#: [id number] CC: SARKIS ANGULO MD; EUN QUESADA MD; CALVIN MAZA MD;*End*
[2018-08-17] MEDS ORDERED: RANOLAZINE (SR) 500 MG TAB PO SCH (21:00)
[2018-08-17] MEDS ORDERED: METOPROLOL 50 MG TAB PO SCH (21:00)
--- NOTE | 2018-08-18 16:00 | RADRPT ---
Vent Rate: 64 bpm RR Interval: 0 msec VT Interval: 180 msec QRS Duration: 126 msec QT Interval: 464 msec QTC Interval: 478 msec P-R-T [place]: 8 - 70 - 43 degrees Normal sinus rhythm Right bundle branch block Abnormal ECG Electronically Signed By: Willian Godinez
== END 2018-08-17 15:53 | disposition home or self-care (01) | DRG 312 ==
LOC: E/R 12:23 → 6WM 19:39
PROVIDERS: ADMIT Family Medicine; ATTEND Family Medicine
DX: R55 Syncope and collapse (principal); N83.202 Unspecified ovarian cyst, left side; I10 Essential (primary) hypertension; D64.9 Anemia, unspecified; K76.0 Fatty (change of) liver, not elsewhere classified; I25.10 Atherosclerotic heart disease of native coronary artery without angina pectoris; R00.1 Bradycardia, unspecified; E78.5 Hyperlipidemia, unspecified; E66.9 Obesity, unspecified; Z68.31 Body mass index [BMI] 31.0-31.9, adult; R10.32 Left lower quadrant pain; R10.2 Pelvic and perineal pain; R51 Headache; F41.9 Anxiety disorder, unspecified
CPT/HCPCS: 36415; 70450; 71275; 72125; 74176; 76856; 80048; 80053; 81001; 81003; 83735; 84443; 84484; 85025; 86304; 86305; 93005; 93880; 96374; 96375; 97161; C9113; J0360; J1170; J1200; J1885; J2270; J2405; J2765; J7030; Q9967